=== PATIENT | female | born 1960 | race Caucasian/White ===

== ENCOUNTER 2023-04-13 09:48 | Outpatient (REF) | payer OTHER, SELFPAY ==
[2023-04-13 15:01] LABS: MANUAL DIFF FLAG NO
[2023-04-13 15:04] LABS: Basophils Absolute Auto 0.1 X10*3/uL (0.0-0.2); Basophils Percent Auto 1.5 % (0-2); Eosinophils Absolute Auto 0.3 X10*3/uL (0.0-0.4); Eosinophils Percent Auto 4.2 % (0-4); Hemoglobin 12.6 g/dl (12.0-16.0); Imm Gran Abs Auto 0.05 X10*3/uL (0.00-0.03); Imm Gran Pct Auto 0.7 % (0.0-0.4); Lymphocytes Absolute Auto 2.1 X10*3/uL (1.2-4.9); Lymphocytes Percent Auto 30.7 % (20-40); Mean Corpuscular HGB Conc 33.2 g/dl (31.0-35.0); Mean Corpuscular Hemoglobin 28.5 pg (27.0-33.0); Mean Platelet Volume 11.7 fL (9.4-12.3); Monocytes Absolute Auto 0.6 X10*3/uL (0.1-1.2); Monocytes Percent Auto 8.8 % (2-11); Neutrophils Absolute Auto 3.6 x10*3/uL (2.0-8.3); Neutrophils Percent Auto 54.1 % (45-73); Platelet Count 364 X10*3/uL (160-400); Red Blood Count 4.42 X10*6/uL (4.20-5.50); Red Cell Distribution Width 13.2 % (11.0-16.0); White Blood Count 6.7 X10*3/uL (4.8-10.8)
[2023-04-13 15:29] LABS: Alanine Aminotransferase 23 U/L (0-31); Albumin Level 4.2 g/dL (3.5-5.0); Alkaline Phosphatase 97 U/L (39-117); Anion Gap 14 (12-20); Aspartate Amino Transferase 21 U/L (5-31); Blood Urea Nitrogen 13 mg/dL (9-16); Calcium 9.6 mg/dL (8.4-10.2); Carbon Dioxide 25 mmol/L (22-29); Chloride 106 mmol/L (96-108); Cholesterol 235 mg/dL (<200); Estimated Glomerular Filt Rate > 60; Glucose Fasting 93 mg/dL (60-99); HDL Cholesterol 55 mg/dL (>40); LDL Cholesterol Calculated 154 mg/dL (<100); Potassium 4.8 mmol/L (3.3-5.1); Sodium 140 mmol/L (135-145); Total Protein 7.5 g/dL (6.5-8.0); Triglycerides 130 mg/dL (<150)
[2023-04-13 15:50] LABS: Vitamin D 25-OH Total 42.3 ng/mL (>30)
== END 2023-04-13 09:49 | disposition home or self-care (01) ==
LOC: HO.CHCLDS 09:48
PROVIDERS: Visit Provider Family Medicine
DX: I10 Essential (primary) hypertension (principal); E55.9 Vitamin D deficiency, unspecified
CPT/HCPCS: 36415; 80053; 80061; 82306; 85025

== ENCOUNTER 2023-08-05 09:26 | Outpatient (REF) | payer OTHER, SELFPAY ==
[2023-08-05 13:01] LABS: Cholesterol 143 mg/dL (<200); HDL Cholesterol 56 mg/dL (>40); LDL Cholesterol Calculated 71 mg/dL (<100); Triglycerides 82 mg/dL (<150)
== END 2023-08-05 09:27 | disposition home or self-care (01) ==
LOC: HO.CHCLDS 09:26
PROVIDERS: Visit Provider Family Medicine
DX: E78.5 Hyperlipidemia, unspecified (principal)
CPT/HCPCS: 36415; 80061

== ENCOUNTER 2023-10-17 16:22 | Outpatient (REF) | payer OTHER, SELFPAY ==
[2023-10-17 20:42] LABS: Influenza A PCR NEGATIVE (Negative); Influenza B PCR NEGATIVE (Negative); Resp Syncy Virus RNA Qual PCR NEGATIVE (Negative); SARS COV2 PCR INHOUSE NEGATIVE (Negative)
== END 2023-10-17 16:23 | disposition home or self-care (01) ==
LOC: HO.CHCLNP 16:22
PROVIDERS: Visit Provider Family Medicine
DX: J32.9 Chronic sinusitis, unspecified (principal)
CPT/HCPCS: 0241U

== ENCOUNTER 2024-04-17 15:05 | Outpatient (REF) | payer OTHER, SELFPAY ==
[2024-04-21 18:23] LABS: HPV mRNA E6/E7 Not Detected (Not Detected)
== END 2024-04-17 15:06 | disposition home or self-care (01) ==
LOC: HO.LNP 15:05
PROVIDERS: Visit Provider Family Medicine
DX: Z12.4 Encounter for screening for malignant neoplasm of cervix (principal)
CPT/HCPCS: 87624; 88175

== ENCOUNTER 2024-11-01 11:21 | Outpatient (REF) | payer MEDICARE, OTHER, SELFPAY ==
[2024-11-01 12:11] LABS: MANUAL DIFF FLAG NO
[2024-11-01 12:16] LABS: Basophils Absolute Auto 0.1 X10*3/uL (0.0-0.2); Basophils Percent Auto 0.9 % (0-2); Eosinophils Absolute Auto 0.3 X10*3/uL (0.0-0.4); Eosinophils Percent Auto 2.6 % (0-4); Hematocrit 36.1 % (37.0-47.0); Hemoglobin 12.4 g/dl (12.0-16.0); Imm Gran Abs Auto 0.09 X10*3/uL (0.00-0.03); Imm Gran Pct Auto 0.8 % (0.0-0.4); Lymphocytes Absolute Auto 2.1 X10*3/uL (1.2-4.9); Lymphocytes Percent Auto 19.2 % (20-40); Mean Corpuscular HGB Conc 34.3 g/dl (31.0-35.0); Mean Corpuscular Volume 84.3 fL (80.0-98.0); Mean Platelet Volume 10.9 fL (9.4-12.3); Monocytes Percent Auto 8.7 % (2-11); Neutrophils Absolute Auto 7.4 x10*3/uL (2.0-8.3); Neutrophils Percent Auto 67.8 % (45-73); Platelet Count 340 X10*3/uL (160-400); Red Blood Count 4.28 X10*6/uL (4.20-5.50); Red Cell Distribution Width 13.2 % (11.0-16.0)
[2024-11-01 12:22] LABS: Anion Gap 17 (12-20); Blood Urea Nitrogen 18 mg/dL (9-16); Calcium 9.8 mg/dL (8.4-10.2); Carbon Dioxide 23 mmol/L (22-29); Chloride 106 mmol/L (96-108); Estimated Glomerular Filt Rate > 60; Glucose Random 100 mg/dL (60-115); Potassium 4.3 mmol/L (3.3-5.1); Sodium 142 mmol/L (135-145)
--- OUTSIDE RECORDS SUMMARY | 2024-11-01 12:31 | XMS_ITS | Encounter Summary ---
Author Organization [employer] Address [address] [place] [address] [place] [address] Care Team Providers Care Manager Language Name Role Phone Anna Tineo MD Primary Care Provider [phone] Reason for Referral * Consultation (Routine) - Pending Review Specialty Diagnoses / Procedures Referred By Aziza armas Referred To Contact Pulmonary Disease Diagnoses Chest tightness Tea Curry MD [address] [place] [phone] Phone: tel: fax: Referral ID Status Reason Start Date Expiration Date Visits Requested Visits Authorized [id number] Pending Review Specialty Services Required 11/01/2024 11/01/2025 1 1 * PFT (Routine) - Authorized Specialty Diagnoses / Procedures Referred By Aziza armas Referred To Contact Diagnoses Chest tightness Procedures Pulmonary Function Test Tea Curry MD [address] [place] [phone] Phone: tel: fax: [address] Phone: tel: fax: Referral ID Status Reason Start Date Expiration Date V isits Requested Visits Authorized [id number] Authorized 11/01/2024 11/01/2025 1 1 Encounter Details Date Type Department Care Team (Late st Contact Info) Description 11/01/2024 10:30 AM EDT Office Visit [facility] [address] [place] [address] Tea Curry MD [address] [place] [address] Chest tightness (Primary Dx) Social History Tobacco Use Types Packs/Day Years Used Date Smoking Tobacco: Never Passive Smoke Exposure: Never Smokeless Tobacco: Never Alcohol Use Standard Drinks/Week Comments Never 0 (1 standard drink = 0.6 oz pur e alcohol) Depression Answer Date Recorded Patient Health Questionnaire-9 Score 4 03/14/2024 Patient Health Questionnaire-9 Score 4 03/14/2024 Last PHQ-9: Questionnaire Data Not on file 0 03/14/2024 Housing Stability Answer Date Recorded What is your housing situation today? I have luisa martinez 04/08/[address] you li ve. Do you have problems with any of the following? None of the above 04/08/2023 Food Insecurity Answer Date Recorded Within the past 12 months, y ou worried that your food would run out before you got money to buy more: Never True 04/08/2023 Within the past 12 months,th e food you bought just didn't last and you didn't have enough money to get more: Never True Transportation Answer Date Recorded In the past 12 months, has l ack of transportation kept you from medical appts, meetings, work or from getting things needed for daily living? No 04/08/2023 Utilities Answer Date Recorded In the past 12 months, has t he electric, gas, oil or water company threatened to shut off services in your home? No 04/08/2023 Depression Answer Date Recorded Patient Health Questionnaire-2 Score 1 03/14/2024 Comments No Sex and Gender Information Value Date Recorded Sex Assigned at Female 04/19/2022 10:39 AM EDT Legal Sex Female 10:39 AM EDT Gender Identity Female 04/19/2022 10:39 AM EDT Sexual Orientation Choose not to disclose 2021 10:39 AM EDT documented as of this encounter Last Filed Vital Signs Vital Sign Reading Time Taken Comments Blood Pressure 121/70 11/01/2024 10:30 AM EDT Pulse 76 11/01/2024 10:30 AM EDT Temperature 37.1 ??C (98.7 ??F) 11/01/2024 10:30 AM E DT Respiratory Rate 22 11/01/2024 10:30 AM EDT Oxygen Saturation 100% 11/01/2024 10:30 AM EDT Inhaled Oxygen Concentration - - Weight - - Height - - Body Mass Index - - documented in this encounter Plan of Treatment Upcoming Encounters Date Type Department Care Team (Late st Contact Info) Description 11/26/2024 9:15 AM EDT Office Visit [facility] MED & PEDS [address] [place] [address] Anna Tineo MD [address] [place] [address] Scheduled Orders Name Type Priority Associated Diagnoses Orde r Schedule Influenza A (ID NOW Rapid Molecular) Point of Care Testing Routine Chest tightness Ordered: 11/01/2024 Influenza B (ID NOW Rapid Molecular) Point of Care Testing Routine Chest tightness Ordered: 11/01/2024 POCT Rapid COVID Ag Point of Care Testing Routine Chest tightness Ordered: 11/01/2024 D Dimer High Sensitivity Lab Routine Chest tightness Expected: 11/01/2024, Expires: 11/01/2025 Pulmonary Function Test PFT Routine Chest tightness Expected: 11/01/2024, Expires: 05/04/2025 Alpha 1 Antitrypsin Lab Routine Chest tightness Expected: 11/01/2024 (Approximate), Expires: 11/01/2025 Scheduled Referrals Name Type Priority Associated Diagnoses Order Schedule Referral to Pulmonology Outpatient Referral Routine Chest tightness Expected: 11/01/2024 (Approximate), Expires: 11/01/2025 documented as of this encounter Procedures Procedure Name Priority Date/Time Associated Diagnosis Comments CBC WITH AUTO DIFFERENTIAL Routine 11/01/2024 11:24 AM EDT Chest tightness BASIC METABOLIC PANEL Routine 11/01/2024 11:24 AM EDT Chest tightness documented in this encounter Results * (ABNORMAL) Basic Metabolic Panel (11/01/2024 11:24 AM EDT) Pathologist [facility] Sodium 142 135 - 145 mmol/L [facility] Potassium 4.3 3.3 - 5.1 mmol/L [facility] Chloride 106 96 - 108 mmol/L [facility] Carbon Dioxide 23 22 - 29 mmol/L [facility] Anion Gap 17 12 - 20 [facility] Urea Nitrogen (BUN) 18(H) 9 - 16 mg/dL [facility] Creatinine, Serum 0.81 0.5 - 1.4 mg/dL [facility] Estimated Glomerular Filt Rate >60 [facility] Comment:Chronic Kidney Disea se: Estimated GFR < 60 mL/min/[id number] Kidney Disease: Estimated GFR < 15 mL/min/1.73m2 Glucose 100 60 - 115 mg/dL [facility] Calcium 9.8 8.4 - 10.2 mg/dL [facility] Blood Venous blood specimen / Unknown 11/01/2024 11:24 AM EDT 11/01/2024 12:05 PM EDT us Tea Curry MD LAB BLOOD ORDERABLES Final Result [facility] [address] [place] [phone] * (ABNORMAL) CBC auto differential (11/01/2024 11:24 AM EDT) Pathologist [facility] White Blood Count 11.0(H) 4.8 - 10.8 X10*3/uL [facility] Red Blood Count 4.28 4.20 - 5.50 X10*6/uL [facility] Hemoglobin 12.4 12.0 - 16.0 g/dl [facility] Hematocrit 36.1(L) 37.0 - 47.0 % [facility] Mean Corpuscular Volume 84.3 80.0 - 98.0 fL [facility] Mean Corpuscular Hemoglobin 29.0 27.0 - 33.0 pg [facility] Mean Corpuscular HGB Conc 34.3 31.0 - 35.0 g/dl [facility] Red Cell Distribution Width 13.2 11.0 - 16.0 % [facility] Platelet Count 340 160 - 400 X10*3/uL [facility] Mean Platelet Volume 10.9 9.4 - 12.3 fL [facility] Neutrophils Percent Auto 67.8 45 - 73 % [facility] Imm Gran Pct Auto 0.8(H) 0.0 - 0.4 % [facility] Lymphocytes Percent Auto 19.2(L) 20 - 40 % [facility] Monocytes Percent Auto 8.7 2 - 11 % [facility] Eosinophils Percent Auto 2.6 0 - 4 % [facility] Basophils Percent Auto 0.9 0 - 2 % [facility] NRBC Pct Auto 0.0 0.0 - 0.2 /100WBC [facility] Neutrophils Absolute Auto 7.4 2.0 - 8.3 x10*3/uL [facility] Imm Gran Abs Auto 0.09(H) 0.00 - 0.03 X10*3/uL [facility] Lymphocytes Absolute Auto 2.1 1.2 - 4.9 X10*3/uL [facility] Monocytes Absolute Auto 1.0 0.1 - 1.2 X10*3/uL [facility] Eosinophils Absolute Auto 0.3 0.0 - 0.4 X10*3/uL [facility] Basophils Absolute Auto 0.1 0.0 - 0.2 X10*3/uL [facility] NRBC Abs Auto 0.000 0.0 - 0.012 X10*3/uL [facility] Blood Venous blood specimen / Unknown 11/01/2024 11:24 AM EDT 11/01/2024 12:05 PM EDT us Tea Curry MD LAB BLOOD ORDERABLES Final Result [facility] [address] [place] [phone] documented in this encounter Visit Diagnoses Diagnosis Chest tightness- Primary Other chest pain documented in this encounter Additional Health Concerns Assessment Noted Time PHQ-9 Depression Total Score: 4 03/14/20 24 11:37 AM EDT documented as of this encounter Care Teams Manager Language Relationship Specialty Start Date End Date Anna Tineo MD [address] [place] [address] PCP - General Family Medicine 05/19/21 documented as of this encounter
--- OUTSIDE RECORDS SUMMARY | 2024-11-01 12:31 | XMS_ITS | Encounter Summary ---
Author Organization [employer] Address [address] [facility] [address] [place] [address] Care Team Providers Care Edge Baster Name Role Phone Anna Tineo MD Primary Care Provider [phone] Reason for Visit * Reason Comments Med Refill Encounter Details Date Type Department Care Team ([facility] Contact Info) Description 06/07/2023 Refill [facility] [address] [place] [address] Chelle James MD [address] [place] [address] Social History Tobacco Use Types Packs/Day Years Used Date Smoking Tobacco: Never Passive Smoke Exposure: Never Smokeless Tobacco: Never Alcohol Use Standard Drinks/Week Comments Never 0 (1 standard drink = 0.6 oz pur e alcohol) Housing Stability Answer Date Recorded What is [...] off services in your home? No 04/08/2023 Comments Unknown Sex and Gender Information Value Date Recorded Sex Assigned at Female 04/19/2022 10:39 AM EDT Legal Sex Female 10:39 AM EDT Gender Identity Female 04/19/2022 10:39 AM EDT Sexual Orientation Choose not to disclose 2021 10:39 AM EDT documented as of this encounter Plan of Treatment Upcoming Encounters Date Type Department Care Team (Late st Contact Info) Description 11/26/2024 9:15 AM EDT Office Visit [facility] MED & PEDS [address] [place] [address] Anna Tineo MD [address] [place] [address] documented as of this encounter Visit Diagnoses Not on filedocumented in this encounter Care Teams Edge Baster Relationship Specialty Start Date End Date Anna Tineo MD [address] [place] [phone] PCP - General Family Medicine 05/19/21 documented as of this encounter
--- OUTSIDE RECORDS SUMMARY | 2024-11-01 12:31 | XMS_ITS | Encounter Summary ---
Author Organization [employer] Address [address] [facility] [address] [place] [address] Care Team Providers Care Rehabilitation Consultant Name Role Phone Anna Tineo MD Primary Care Provider [phone] Encounter Details Date Type Department Care Team (Latest Contact Info) Description 11/01/2024 Travel Social History Tobacco Use Types Packs/Day Years [...] Description 11/26/2024 9:15 AM EDT Office Visit [facility] MED & PEDS [address] [place] [address] Anna Tineo MD [address] [place] [address] documented as of this encounter Visit Diagnoses Not on filedocumented in this encounter Additional Health Concerns Assessment Noted Time PHQ-9 Depression Total Score: 4 03/14/20 24 11:37 AM EDT documented as of this encounter Care Teams Rehabilitation Consultant Relationship Specialty Start Date End Date Anna Tineo MD [address] [place] [address] PCP - General Family Medicine 05/19/21 documented as of this encounter
--- OUTSIDE RECORDS SUMMARY | 2024-11-01 12:31 | XMS_ITS | Encounter Summary ---
Author Organization [employer] Address [address] [facility] [address] [place] [address] Care Team Providers Care Facer Operator Name Role Phone Anna Tineo MD Primary Care Provider [phone] Encounter Details Date Type Department Care Team ([facility] st Contact Info) Description 11/01/2024 Telephone [facility] [address] [place] [address] Anna Tineo MD [address] [place] [address] Social History Tobacco Use Types Packs/Day Years [...] AM EDT documented as of this encounter Miscellaneous Notes * Telephone Encounter - Pam Fowler RN - 11/01/2024 9:39 AM EDT Called pt. RE: Incoming pt. Portal message of not feeling well. Pt. States she is always out of breath. Pt. Was feeling better with the antibiotic at first but, now pt. Is still easily tired. Pt has been using her inhaler with relief but still has chest congestion and has head congestion. Phlegm isgreen colored. Pt. Concerned and wants to know what further measures need to be taken. Protocol Used: Breathing Difficulty (Adult) Protocol-Based Disposition: Go to Office or Video Visit Now- Pt. Has appt. Today at 1030am in [facility]. Video visit offer not recorded Positive Triage Questions: * Mild difficulty breathing (e.g., minimal/no SOB at rest, SOB with walking, pulse < 100) of new-onset or worse than normal * Patient wants to be seen * All higher-acuity triage questions were negative documented in this encounter Plan of Treatment Upcoming Encounters Date Type Department Care Team (Late st Contact Info) Description 11/26/2024 9:15 AM EDT Office Visit [facility] MED & PEDS [address] [place] [address] Anna Tineo MD [address] [place] [address] documented as of this encounter Visit Diagnoses Not on filedocumented in this encounter Additional Health Concerns Assessment Noted Time PHQ-9 Depression Total Score: 4 03/14/20 24 11:37 AM EDT documented as of this encounter Care Teams Facer Operator Relationship Specialty Start Date End Date Anna Tineo MD [address] [place] [address] PCP - General Family Medicine 05/19/21 documented as of this encounter
--- OUTSIDE RECORDS SUMMARY | 2024-11-01 12:31 | XMS_ITS | Clinical Summary ---
Author Organization [employer] Address [address] [place] [address] Care Team Providers Care Igniter Capper Name Role Phone Anna Tineo MD Primary Care Provider [phone] Allergies Active Allergy Reactions Criticality Noted Date Comments Bee Venom Anaphylaxis High 07/08/2017 Sulfa Antibiotics Rash Low 10/01/2021 Medications cholecalciferol (Vitamin D-3) 50 MCG (1999 UT) tablet Take 1 tablet by mouth 1 (one) time each day. Active ibuprofen 600 MG tablet TAKE 1 TABLET BY MOUTH FOUR TIMES A DAY WITH FOOD 2 Active triamcinolone (Kenalog) 0.1 % cream APPLY A THIN LAYER TO AFFECTED AREA TWICE A DAY FOR 7 DAYS 3 Active clonazePAM (KlonoPIN) 0.5 MG tablet Take 1 tablet (0.5 mg) by mouth in the morning for 7 days. TAKE 1 TABLET ONCE A DAY NEEDED 7 tablet 3 Active cyanocobalamin (Vitamin B-12) 500 MCG tablet Take 500 mcg by mouth in the morning. Active fluticasone (Flonase) 50 MCG/ACT nasal spray Administer 1 spray into each nostril Once per day. 16 g 1 4 11/17/19 25 Active pantoprazole (ProtoNix) 40 MG EC tablet Take 1 Tab by mouth daily for 180 days. 0 Active bisoprolol-hydr oCHLOROthiazide (Ziac) 5-6.25 MG tablet TAKE 1 TABLET BY MOUTH EVERY DAY 90 tablet 1 4 Active citalopram (CeleXA) 40 MG tablet TAKE 1 TABLET BY MOUTH EVERY DAY 90 tablet 1 4 Active atorvastatin (Lipitor) 20 MG tablet TAKE 1 TABLET BY MOUTH EVERY DAY IN THE MORNING 90 tablet 1 5 Active albuterol 108 (90 Base) MCG/ACT inhaler Inhale 2 puffs every 4 (four) hours if needed for wheezing. 18 g 5 Active amoxicillin-cla vulanate (Augmentin) 875-125 MG tabletIndicatio ns:Acute non-recurrent maxillary sinusitis Take 1 tablet by mouth 2 times daily for 10 days. 20 tablet 5 11/02/19 25 Active predniSONE (Deltasone) 10 MG tabletIndicatio ns:Chest tightness 3 Tabs x 3 days, 2 tabs x 3 days, 2 tabs x 3 days, one tab x 3 days. 20 tablet 5 Active doxycycline (Vibramycin) 100 MG capsuleIndicati ons:Acute non-recurrent maxillary sinusitis Take 1 capsule (100 mg) by mouth 2 times daily for 10 days. Take with at least 8 ounces (large glass) of water, do not lie down for 30 minutes after 20 capsule 5 11/12/19 25 Active predniSONE (Deltasone) 20 MG tabletIndicatio ns:Acute non-recurrent maxillary sinusitis Take 2 tablets (40 mg) by mouth Once per day for 5 days. 10 tablet 5 10/28/19 25 Active Problems Problem Noted Date Diagnosed Date Diastolic dysfunction 07/04/2024 COVID-19 05/14/2024 Assessment & Plan (05/14/2024 10:12 AM EST): Cont with shortness of breath, DONNELLY and loss sense of smell. Reports no further fevers, was not rx'ed Paxlovid. Requiring albuterol up to 2 times a day. Normal lung. Cervical cancer screening 04/17/2024 Assessment & Plan (04/17/2024 9:45 AM EDT): 63 y.o. here for cervical cancer screening. Will continue monitoring following ASCCP guidelines. Other fatigue 03/14/2024 Assessment & Plan (03/14/2024 12:02 PM EDT): Ordering lab work for further evaluation. MARTÍNEZ (dyspnea on exertion) 03/14/2024 Assessment & Plan (03/14/2024 12:01 PM EDT): Ordering BNP and TTE for further evaluation of Sx. Rhinosinusitis 10/17/2023 Assessment & Plan (10/17/2023 3:54 PM EDT): Negative for Flu and Covid. Prescribing Sudafed, Diflucan, and Augmentin. Discussed side effects of medication. Relevant Medication Amoxicillin-Clavulanate (Augmentin) 875 -125 MG Tablet Fluconazole (Diflucan 150 MG Tablet Pseudoephedrine ER ( Sudafed Sinus Congestion 12 hr) 120 MG Tablet 12 hr Tablet Hyperlipidemia 08/05/2023 Assessment & Plan (03/14/2024 12:02 PM EDT): Continue on medications, follow up in 6 months. Assessment & Plan (08/05/2023 9:16 AM EST): Patient's HLD is controlled at this time. F/U in 6 months. Labs: Lipid panel Hypertension 04/08/2023 Assessment & Plan (03/14/2024 12:01 PM EDT): Controlled, continue on medications. Assessment & Plan (04/08/2023 12:01 PM EDT): Controlled: will keep treating with medications. -Advised patient to keep monitoring at home. -Labs: Lipid Panel, Albumin, CBC, Met. Panel. Follow up in 4 months Depressive disorder 06/26/2022 Anxiety 06/26/2022 Vitamin D deficiency 06/10/2022 Assessment & Plan (04/08/2023 12:00 PM EDT): -Will send Labs: Vit.D 1,25. Herpes zoster without complication 06/10/2022 Assessment & Plan (06/18/2022 4:38 PM EST): Improvement sp treatment sent by Dr. Gerber. Has appt with opthal coming up. No pain. RTC if recurs or as needed Assessment & Plan (06/10/2022 2:48 PM EST): Video visit could not be done, she refers this lesions are similar to what she had 4 years ago, refers location is on the right side of her face, are near her right eye socket, denied blurry/loss of vision, but 2 days ago her face was swollen. Will prescribe valacyclovir and will refer for eye exam Abnormal mammogram of right breast 03/08/2019 Overview (04/17/2024): S/p US guided biopsy 02/2019 Atypical endocervical cells on Pap smear 018 Overview (04/17/2024): HPV negative 01/2018 TIA (transient ischemic attack) 08/02/2017 Overview (04/17/2024): Age 42 Osteopenia 07/08/2017 Diverticulosis 07/08/2017 Obesity (BMI 30-39.9) 07/04/2017 GERD (gastroesophageal reflux disease) 8 Encounters Date Type Department Care Team Description 11/01/2024 10:30 AM EDT Office Visit [facility] [address] [place] [address] Tea Curry MD Chest tightness (Primary Dx) 11/01/2024 Orders Only [facility] [address] [place] [address] Tea Curry MD Acute non-recurrent maxillary sinusitis (Primary Dx) 11/01/2024 Travel 11/01/2024 Telephone [facility] [address] [place] [address] Anna Tineo MD 10/25/2024 Telephone [facility] [address] [place] [address] Tea Curry MD Results 10/22/2024 2:20 PM EDT Office Visit [facility] [address] [place] [address] Tea Curry MD Acute non-recurrent maxillary sinusitis (Primary Dx); Chest tightness 10/22/2024 Travel 10/22/2024 Telephone [facility] [address], [place] [phone] Latoya Roldan RN 08/30/2024 Refill [facility] [address], [place] [phone] Anna Tineo MD 08/28/2024 Refill [facility] [address], [place] [phone] Anna Tineo MD from Last 3 Months Immunizations Immunization Administration Dates Next Due TD (adult), 2 Lf tetanus tox oid, preservative free, adsorbed 05/30/2016 Zoster, Recombinant 06/29/2018 Family History Medical History Relation Name Comments Heart disease Mother Hyperlipidemia Mother Hypertension Mother Relation Name Status Comments Mother Social History Tobacco Use Types Packs/Day Years Used Date Smoking Tobacco: Never Passive Smoke Exposure: Never Smokeless Tobacco: Never Tobacco Cessation:Counseling Given: Not Answered Alcohol Use Standard Drinks/Week Comments Never 0 [...] not to disclose 2021 10:39 AM EDT Last Filed Vital Signs Vital Sign Reading Time Taken Comments Blood Pressure 121/70 11/01/2024 10:30 AM EDT Pulse 76 11/01/2024 10:30 AM EDT Temperature 37.1 ??C (98.7 ??F) 11/01/2024 10:30 AM E DT Respiratory Rate 22 11/01/2024 10:30 AM EDT Oxygen Saturation 100% 11/01/2024 10:30 AM EDT Inhaled Oxygen Concentration - - Weight 82.2 kg (181 lb 3.2 oz) 05/14/2024 9:54 A M EST Height 157.5 cm (5' 2 ) 05/14/2024 9:54 AM EST Body Mass Index 33.14 05/14/2024 9:54 AM EST Plan of Treatment Upcoming Encounters Date Type Department Care Team (Late st Contact Info) Description 11/26/2024 9:15 AM EDT Office Visit [facility] [address] [place] [address] Anna Tineo MD [address] [place] [address] Health Maintenance Due Date Last Done Comments CT Colonography 1959 Colonoscopy 1959 Colorectal Cancer Screening 1959 FIT DNA/Cologuard 1959 FIT 1959 FOBT 1959 Sigmoidoscopy 1959 Hepatitis C Screening 10/06/1977 Pneumococcal Vaccine: 50+ Years (1 of 1 - PCV) 10/06/2009 DTaP/Tdap/Td Vaccines (1 - Tdap) 05/31/2016 05/30/2016 Zoster Vaccines (2 of 2) 08/24/2018 06/29/2018 RSV Patients and Patients Aged 60 years or older (1 - Risk 60-74 years 1-dose series) 2019 COVID-19 Vaccine (3 - 2023-2 5 season) 2024 09/27/2020, 09/06/2020 SDOH Screening 07/29/2024 07/29/2023 Mammogram 08/08/2024 08/08/2023, 08/08/2023 Influenza Vaccine (#1) 2024 Postp oned from 02/19/2024 (Patient Refused) Depression Screening 03/14/2025 03/14/2024, 03/14/2024 Alcohol/Substance Use Screening 04/17/2025 04/17/2024 Tobacco Screening 05/14/2025 05/14/2024 Lipid Panel 08/05/2028 08/05/2023, 04/13/2023, 05/07/2021 Cervical Cancer Screening 04/17/2029 HPV/Cotest 04/17/2029 04/17/2024 Pap Smear 04/17/2029 04/17/2024 HIB Vaccines Aged Out No longer eligi ble based on patient's age to complete this topic HPV Vaccines Aged Out No longer eligi ble based on patient's age to complete this topic Hepatitis A Vaccines Aged Out No long er eligible based on patient's age to complete this topic Hepatitis B Vaccines Aged Out No long er eligible based on patient's age to complete this topic IPV Vaccines Aged Out No longer eligi ble based on patient's age to complete this topic Meningococcal B Vaccine Aged Out No l onger eligible based on patient's age to complete this topic Meningococcal Vaccine Aged Out No jeimy jase eligible based on patient's age to complete this topic RSV under 20 months Aged Out No longe r eligible based on patient's age to complete this topic Rotavirus Vaccines Aged Out No longer eligible based on patient's age to complete this topic Procedures Procedure Name Priority Date/Time Associated Diagnosis Comments BASIC METABOLIC PANEL Routine 11/01/2024 11:24 AM EDT Chest tightness CBC WITH AUTO DIFFERENTIAL Routine 11/01/2024 11:24 AM EDT Chest tightness XR CHEST 2 VIEWS Routine 10/23/2024 Acute non-recurrent maxillary sinusitis Chest tightness POCT INFLUENZA B Routine 10/22/2024 2:55 PM EDT Chest tightness POCT INFLUENZA A Routine 10/22/2024 2:50 PM EDT Chest tightness POCT RAPID COVID ANTIGEN Routine 10/22/2024 2:50 PM EDT Acute non-recurrent maxillary sinusitis Chest tightness THINPREP IMAGING PAP AND HPV MRNA E6/E7 Routine 04/17/2024 9:50 AM EDT HM MAMMOGRAPHY Routine 08/08/2023 9:23 AM EST LIPID PANEL, STANDARD Routine 08/05/2023 9:29 AM EST Hyperlipidemia, unspecified hyperlipidemia type from Last 3 Months or Most Recently Relevant to Health Maintenance Results * (ABNORMAL) CBC auto differential (11/01/2024 11:24 AM EDT) White Blood Count 11.0(H) 4.8 - 10.8 X10*3/uL [facility] Red Blood Count 4.28 4.20 - 5.50 X10*6/uL [facility] Hemoglobin 12.4 12.0 - 16.0 g/dl [facility] Hematocrit 36.1(L) 37.0 - 47.0 % [facility] Mean Corpuscular Volume 84.3 80.0 - 98.0 fL [facility] Mean Corpuscular Hemoglobin 29.0 27.0 - 33.0 pg [facility] Mean Corpuscular HGB Conc 34.3 31.0 - 35.0 g/dl [facility] Red Cell Distribution Width 13.2 11.0 - 16.0 % [facility] Platelet Count 340 160 - 400 X10*3/uL [facility] Mean Platelet Volume 10.9 9.4 - 12.3 fL [facility] Neutrophils Percent Auto 67.8 45 - 73 % [facility] Imm Gran Pct Auto 0.8(H) 0.0 - 0.4 % [facility] Lymphocytes Percent Auto 19.2(L) 20 - 40 % [facility] Monocytes Percent Auto 8.7 2 - 11 % [facility] Eosinophils Percent Auto 2.6 0 - 4 % [facility] Basophils Percent Auto 0.9 0 - 2 % [facility] NRBC Pct Auto 0.0 0.0 - 0.2 /100WBC [facility] Neutrophils Absolute Auto 7.4 2.0 - 8.3 x10*3/uL [facility] Imm Gran Abs Auto 0.09(H) 0.00 - 0.03 X10*3/uL [facility] Lymphocytes Absolute Auto 2.1 1.2 - 4.9 X10*3/uL [facility] Monocytes Absolute Auto 1.0 0.1 - 1.2 X10*3/uL [facility] Eosinophils Absolute Auto 0.3 0.0 - 0.4 X10*3/uL [facility] Basophils Absolute Auto 0.1 0.0 - 0.2 X10*3/uL [facility] NRBC Abs Auto 0.000 0.0 - 0.012 X10*3/uL [facility] Blood Venous blood specimen / Unknown 11/01/2024 11:24 AM EDT 11/01/2024 12:05 PM EDT us Tea Curry MD LAB BLOOD ORDERABLES Final Result [facility] [address] [place] [phone] [phone] * (ABNORMAL) Basic Metabolic Panel (11/01/2024 11:24 AM EDT) Sodium 142 135 - 145 mmol/L [facility] Potassium 4.3 3.3 - 5.1 mmol/L [facility] Chloride 106 96 - 108 mmol/L [facility] Carbon Dioxide 23 22 - 29 mmol/L [facility] Anion Gap 17 12 - 20 [facility] Urea Nitrogen (BUN) 18(H) 9 - 16 mg/dL [facility] Creatinine, Serum 0.81 0.5 - 1.4 mg/dL [facility] Estimated Glomerular Filt Rate >60 [facility] Comment:Chronic Kidney Disea se: Estimated GFR < 60 mL/min/1.36f5Jfhnex Kidney Disease: Estimated GFR < 15 mL/min/1.73m2 Glucose 100 60 - 115 mg/dL [facility] Calcium 9.8 8.4 - 10.2 mg/dL [facility] Blood Venous blood specimen / Unknown 11/01/2024 11:24 AM EDT 11/01/2024 12:05 PM EDT us Tea Curry MD LAB BLOOD ORDERABLES Final Result [facility] [address] [place] [address] [phone] * XR Chest 2 Views (10/23/2024) Anatomical Region Laterality Modality Chest Radiographic Elizabeth ging us Tea Curry MD IMG XR PROCEDURES Final Res ult * POCT Rapid Influenza B OSOM (10/22/2024 2:55 PM EDT) Pathologist [facility] Rapid Influenza B Ag Negative Negative, Indeterminate QC Media Lot # [id number] Lot# Expiration Date [id number] Swab 10/22/2024 2:55 PM EDT us Tea Curry MD POINT OF CARE TEST ENTER/ED IT ORDERABLES Final Result * POCT Rapid Covid-19 BinaxNOW (10/22/2024 2:50 PM EDT) Pathologist [facility] Rapid COVID Ag Negative QC Media Lot # [id number] Lot# Expiration Date ,026 Swab 10/22/2024 2:50 PM EDT Tea Curry MD POINT OF CARE TEST ENTER/ED IT ORDERABLES Final Result * POCT Rapid Influenza A OSOM (10/22/2024 2:50 PM EDT) Rapid Influenza A Ag Negative Negative, Indeterminate QC Media Lot # [id number] Lot# Expiration Date 312,025 Swab Nasopharyngeal structure / Unknown 10/22/2024 2:50 PM EDT Tea Curry MD POINT OF CARE TEST ENTER/ED IT ORDERABLES Final Result * ThinPrep Imaging Pap and HPV mRNA E6/E7 (04/17/2024 9:50 AM EDT) Pathologist [facility] HPV nRNA E6/E7 Not Detected Not Detected [facility] Comment:Methodology: Transcr iption-Mediated AmplificationThis assay detects E6/E7 viral messenger RNA (mRNA) from 14high-risk HPV types (16,18,31,33,35,39,45,51,52,56,58,59,66,68).Cervical sources are required for HPV testing.If a vaginal source from a patient who has had atotal hysterectomy with removal of cervix wassubmitted, please contact the testing laboratoryfor alternative testing options.For additional information, please refer [email or web address]/faq/[email or web address](This link if provided for information/educational purposes only.)THIS TEST WAS PERFORMED AT:[employer] [place] [phone] HAYS MD SOURCE: SEE NOTE [facility] Comment:Cervix Report Status: TNP [facility] Clinical Information: SEE NOTE [facility] Comment:None given LMP: SEE NOTE [facility] Comment:NONE GIVEN Prev. PAP: SEE NOTE [facility] Comment:NONE GIVEN Prev. BX: SEE NOTE [facility] Comment:NONE GIVEN Statement Of Adequacy: SEE NOTE [facility] Comment:SATISFA[employer]ORY FOR SHALONDA MENCHACA General Categorization: [facility] Interpretation/Result: SEE NOTE [facility] Comment:Cytology Results: Ne gative for intraepitheliallesion or malignancy.Atrophic pattern; predominantly parabasal cells Cytology Comment SEE NOTE [facility] Comment:This Pap test has be en evaluated with computerassisted technology. Survey Methodologist: SEE NOTE [facility] Comment:MRC, CT(ASCP) CT scr eening location: [place] [address] Review Survey Methodologist: [facility] Pathologist [facility] PAP Infection [facility] See Note SEE NOTE [facility] Comment:EXPLANATORY NOTE:The Pap is a screening test for cervical cancer. It isnot a diagnostic test and is subject to false negativeand false positive results. It is most reliable when asatisfactory sample, regularly obtained, is submittedwith relevant clinical findings and history, and whenthe Pap result is evaluated along with historic andcurrent clinical information. 04/17/2024 9:50 AM EDT 04/17/2024 3:06 PM EDT Narrative [facility] - 04/23/2024 12:27 PM EST SEE SCANNED RESULTS IN EMRCERVIX us Anna Tineo MD LAB PATHOLOGY ORDERABLES Nidhi l Result [facility] [address] [place] [address] [phone] * Hm Mammography (08/08/2023 9:23 AM EST) Anatomical Region Laterality Modality Other Historical Provider HEALTH MAINTENANCE Final Result * Lipid Panel, Standard (08/05/2023 9:29 AM EST) Triglycerides 82 <150 mg/dL [facility] Comment:Desirable Triglyceri de: less than 150 mg/dLBorderline High Triglyceride 150-199 mg/dLHigh Triglyceride: 200-499 mg/dLVery High Triglyceride: greater than or equal to 5OO mg/dL Cholesterol 143 <200 mg/dL [facility] Comment:Desirable Cholestero l: less than 200 mg/dLBorderline High Cholesterol: 200-239 mg/dLHigh Cholesterol: greater than 239 mg/dL LDL Cholesterol Calculated 71 <100 mg/dL [facility] Comment:Desirable LDL: less than 100 mg/dLNear Optimal/Above Optimal LDL: 110- 129 mg/dLBorderline High LDL: 130-159 mg/dLHigh LDL: 160-189 mg/dLVery High LDL: greater than or equal to 190 mg/dL HDL Cholesterol 56 >40 mg/dL [facility] Comment:Desirable HDL: great er than 40 mg/dL Note: This HDL assay may give artificially low results in patients with liver disease. Blood Venous blood specimen / Unknown 08/05/2023 9:29 AM EST 08/05/2023 12:30 PM EST Anna Tineo MD LAB BLOOD ORDERABLES Final Re sult [facility] [address] [place] [address] [phone] from Last 3 Months or Most Recently Relevant to Health Maintenance [place] [address] [place] [address] HMO Care Teams Igniter Capper Relationship Specialty Start Date End Date Anna Tineo MD [address] [place] [phone] PCP - General Family Medicine 05/19/21
--- OUTSIDE RECORDS SUMMARY | 2024-11-01 12:31 | XMS_ITS | Clinical Summary ---
Author Organization [facility] Address [address] [place] [address] Phone Care Team Providers Care Handle Attacher Name Role Phone Anna Tineo MD Primary Care Provider [phone] Allergies Active Allergy Reactions Criticality Noted Date Comments Bee Venom Protein (Honey Bee) Anaphylaxis High 07/08 Sulfa (Sulfonamide Antibiotics) Other 06/20 Medications albuterol HFA (PROAIR HFA ; PROVENTIL HFA ; VENTOLIN HFA) 90 mcg/actuation inhaler Inhale 2 puffs by mouth every 4 (four) hours if needed for wheezing or shortness of breath. Use with spacer to ensure complete administration . 1 each 4 Active citalopram (CeleXA) 40 mg tablet Take 1 tablet (40 mg total) by mouth 1 (one) time each day. 1 Active bisoprolol-hydr oCHLOROthiazide (ZIAC) 5-6.25 mg per tablet Take 1 tablet by mouth 1 (one) time each day. 1 Active pantoprazole (PROTONIX) 40 mg EC tablet Take 1 Tab by mouth daily for 180 days. 0 Active cholecalciferol (VITAMIN D-3) 50 mcg (2,000 unit) tablet Take 1 tablet (2,000 Units total) by mouth 1 (one) time each day. 9 Active Active Problems Problem Noted Date Diagnosed Date COVID-19 virus detected 05/30/2020 Abnormal mammogram of right breast 03/08/2019 Overview (05/12/2024): S/p US guided biopsy 02/2019 Atypical endocervical cells on Pap smear 018 Overview (05/12/2024): HPV negative 01/2018 TIA (transient ischemic attack) 08/02/2017 Overview (05/12/2024): Age 42 Diverticulosis 07/08/2017 Osteopenia 07/08/2017 Anxiety and depression 07/04/2017 GERD (gastroesophageal reflux disease) 8 Hypercholesteremia 07/04/2017 Hypertension 07/04/2017 Obesity (BMI 30-39.9) 07/04/2017 Encounters Date Type Department Care Team Description 10/23/2024 12:02 PM EDT - 10/23/2024 11:59 PM EDT Hospital Encounter [facility] Xray [address] [place] [address] Acute maxillary sinusitis, unspecified; Other chest pain Discharge Disposition: Home or Self Care from Last 3 Months Surgical History Surgery Date Site/Laterality Comments TUBAL LIGATION PROCEDURE: HISTORICAL TUBAL LIGATION OTHER SURGICAL HISTORY PROCEDURE: ---- OTHER ----; COMMENT: breast enlargement OTHER SURGICAL HISTORY 2013 PROCEDURE: ---- OTHER ----; COMMENT: left breast repair COLONOSCOPY 2014 PROCEDURE: HISTORICAL COLONOSCOPY Medical History Medical History Date Comments Hypertension 07/04/2017 DX:Hypertension Hypercholesteremia 07/04/2017 DX:Hyperchole steremia GERD (gastroesophageal reflux disease) 07/04/2017 DX:GERD (gastroesophageal reflux disease) Impaired fasting glucose 07/04/2017 DX:Impa ired fasting glucose Obesity (BMI 30-39.9) 07/04/2017 DX:Obesity (BMI 30-39.9) Osteopenia 07/08/2017 DX:Osteopenia Diverticulosis 07/08/2017 DX:Diverticulosi s Anxiety and depression 07/04/2017 DX:Anxiet y and depression TIA (transient ischemic attack) 08/02/2017 DX:TIA (transient ischemic attack); COMMENT: Age 42 Atypical endocervical cells on Pap smear 8 DX:Atypical endocervical cells on Pap smear; COMMENT: HPV negative 01/2018 Abnormal mammogram of right breast 03/08/2019 DX:Abnormal mammogram of right breast; COMMENT: S/p US guided biopsy 02/2019 Family History Medical History Relation Name Comments Heart failure Father HTN Diabetes Maternal Grandfather Diabetes Mother HTN, TIA Asthma Sister 1 Asthma Sister 2 Asthma Son Relation Name Status Comments Father Maternal Grandfather Mother Sister 1 Sister 2 Son Social History Tobacco Use Types Packs/Day Years Used Date Smoking Tobacco: Never Smokeless Tobacco: Never Alcohol Use Standard Drinks/Week Comments Yes 0 (1 standard drink = 0.6 oz pur e alcohol) Comments Unknown Sex and Gender Information Value Date Recorded Sex Assigned at Not on file Legal Sex Female 7:26 AM EST Gender Identity Not on file Sexual Orientation Not on file Obstetrics History Last Filed Vital Signs Vital Sign Reading Time Taken Comments Blood Pressure 118/64 07/03/2024 3:25 PM EST Pulse 92 05/04/2024 5:00 PM EST Temperature 37.3 ??C (99.1 ??F) 05/04/2024 5:00 PM ES T Respiratory Rate 20 05/04/2024 5:00 PM EST Oxygen Saturation 100% 05/04/2024 5:00 PM EST Inhaled Oxygen Concentration - - Weight 83.9 kg (185 lb) 07/03/2024 3:25 PM EST Height 157.5 cm (5' 2 ) 07/03/2024 3:25 PM EST Body Mass Index 33.84 07/03/2024 3:25 PM EST Plan of Treatment Health Maintenance Due Date Last Done Comments Breast Cancer Screening 1960 Pneumococcal Vaccine: 50+ Years (1 of 1 - PCV) 10/06/2009 Zoster Vaccines (2 of 2) 08/24/2018 06/29/2018 Medicare Annual Wellness Visit 05/23/2022 Osteoporosis Screening (Bone Density Screening) 05/23/2022 Social Influencers of Health Screening 05/23/2022 Cervical Cancer Screening: P ap Smear 03/14/2023 03/14/2020 COVID-19 Vaccine (3 - 2023-2 5 season) 2024 09/27/2020, 09/06/2020 Falls Risk Assessment 10/06/2024 Influenza Vaccine (Season Ended) 2025 Depression Screening 03/14/2025 03/14/2024 Hypertension/CHF/CAD Annual BMP Blood Test 05/04/2025 05/04/2024, 11/20/2020 Colorectal Cancer Screening: Colonoscopy 06/06/2025 06/06/2015 DTaP,Tdap,and Td Vaccines (2 - Td or Tdap) 05/30/2026 05/30/2016 Cholesterol Screening (Lipid Panel) 08/05/2028 08/05/2023, 11/20/2020 RSV Immunization Adult Patients (1 - 1-dose 75+ series) 10/06/2034 Hepatitis C Screening Completed 12/01/2017 HIB Vaccines Aged Out No longer eligi [...] on patient's age to complete this topic MMR Vaccines Aged Out No longer eligi ble based on patient's age to complete this topic Meningococcal ACWY Vaccine Aged Out N o longer eligible based on patient's age to complete this topic Meningococcal B Vaccine Aged Out No l onger eligible based on patient's age to complete this topic Pneumococcal Vaccine: Pediatrics (0 to 5 Years) and At-Risk Patients (6 to 64 Years) Aged Out No longer eligible b ased on patient's age to complete this topic RSV Immunization Patients Under 20 months Aged Out No longer eligible b ased on patient's age to complete this topic Varicella Vaccines Aged Out No longer eligible based on patient's age to complete this topic Procedures Procedure Name Priority Date/Time Associated Diagnosis Comments XR CHEST 2 VIEWS Routine 10/23/2024 12:3 1 PM EDT Acute maxillary sinusitis, unspecified Other chest pain BASIC METABOLIC PANEL STAT 05/04/2024 12:22 PM EST LIPID PANEL Routine 11/20/2020 HM PAP SMEAR Routine 03/14/2020 HEPATITIS C SCREENING Routine 12/01/2017 COLONOSCOPY Routine 06/06/2015 from Last 3 Months or Most Recently Relevant to Health Maintenance Results * XR Chest 2 Views (10/23/2024 12:31 PM EDT) Anatomical Region Laterality Modality Body Radiographic Elizabeth ging 10/23/2024 12:3 7 PM EDT Impressions 10/23/2024 12:37 PM EDT FINDINGS/IMPRESSION: Hyperinflation. ??No congestive heart failure or pneumonia. ??No acute osseous abnormality. -------- FINAL REPORT -------- Dictated By: Neo Bishop Dictated Date: 10/23/2024 12:37 ET Assigned Physician: Neo Bishop Reviewed and Electronically Signed By: Neo Bishop Signed Date: 10/23/2024 12:37 ET Workstation ID: [id number] Transcribed By: Self Edit Transcribed Date: 10/23/2024 12:37 ET Narrative 10/23/2024 12:37 PM EDT XR CHEST 2 VIEWS INDICATION: CHEST TIGHTNESS TECHNIQUE: XR CHEST 2 VIEWS COMPARISON: No priors available. Procedure Note Neo Bishop MD - 10/23/2024 XR CHEST 2 VIEWS INDICATION: CHEST TIGHTNESS TECHNIQUE: XR CHEST 2 VIEWS COMPARISON: No priors available. IMPRESSION: FINDINGS/IMPRESSION: Hyperinflation. No congestive heart failure orpneumonia. No acute osseous abnormality. -------- FINAL REPORT -------- Dictated By: Neo Bishop Dictated Date: 10/23/2024 12:37 ET Assigned Physician: Neo Bishop Reviewed and Electronically Signed By: Neo Bishop Signed Date: 10/23/2024 12:37 ET Workstation ID: [id number] Transcribed By: Self Edit Transcribed Date: 10/23/2024 12:37 ET us Tea Curry MD IMG XR PROCEDURES Final R esult * (ABNORMAL) Basic metabolic panel (05/04/2024 12:22 PM EST) Sodium 138 133 - 145 mmol/L LAB CHEMISTRY METHOD 05/04/2024 12:47 PM [facility] Potassium 3.6 3.5 - 5.5 mmol/L LAB CHEMISTRY METHOD 05/04/2024 12:47 PM [facility] Chloride 105 96 - 110 mmol/L LAB CHEMISTRY METHOD 05/04/2024 12:47 PM [facility] CO2 23 21 - 32 mmol/L LAB CHEMISTRY METHOD 05/04/2024 12:47 PM [facility] Anion Gap 10 3 - 11 LAB CHEMISTRY METHOD 05/04/2024 12:47 PM [facility] Glucose 101(H) 70 - 100 mg/dL LAB CHEMISTRY METHOD 05/04/2024 12:47 PM [facility] BUN 15 5 - 25 mg/dL LAB CHEMISTRY METHOD 05/04/2024 12:47 PM [facility] Creatinine 1.10 0.50 - 1.10 mg/dL LAB CHEMISTRY METHOD 05/04/2024 12:47 PM [facility] eGFR 56(L) >=60 mL/min/1. 73m2 LAB CHEMISTRY METHOD 05/04/2024 12:47 PM [facility] Comment:Calculation based on the??Chronic Kidney Disease Epidemiology Collaboration (CKD-EPI) equation refit??without adjustment for race. BUN/Creatinine Ratio 13.6 LAB CHEMISTRY METHOD 05/04/2024 12:47 PM [facility] Calcium 9.5 8.5 - 10.5 mg/dL LAB CHEMISTRY METHOD 05/04/2024 12:47 PM [facility] Blood Venous blood specimen / Unknown Venipuncture / Unknown 05/04/2024 12:22 PM EST 05/04/2024 12:26 PM EST us Milena Dawson DO LAB BLOOD ORDERABLES Nidhi l Result [facility] [address] [place] [address], * Lipid panel (11/20/2020) [facility] LDL/HDL Ratio 2 0 - 4 Triglycerides 111 0 - 150 mg/dL Cholesterol 145 0 - 200 mg/dL HDL 63 >=40 mg/dL LDL Cholesterol 60 0 - 100 mg/dL Blood Venous blood specimen / Unknown [facility] Provider LAB BLOOD ORDERABLES Nidhi l Result * Pap Smear (03/14/2020) [facility] Pap smear abstracted, no interpretation [facility] Provider HEALTH MAINTENANCE Final Result * Hepatitis C Screening (12/01/2017) [facility] Hepatitis C Screening abstracted [facility] Provider HEALTH MAINTENANCE Final Result * Colonoscopy (06/06/2015) [facility] Colonoscopy abstracted, no interpretation Anatomical Region Laterality Modality Other [facility] Provider HEALTH MAINTENANCE Final Result from Last 3 Months or Most Recently Relevant to Health Maintenance Insurance [employer] - [place] MEDICARE ADVANTAGE Care Teams Handle Attacher Relationship Specialty Start Date End Date Anna Tineo MD [address] [place] [address] PCP - General 02/24/22
--- OUTSIDE RECORDS SUMMARY | 2024-11-01 12:31 | XMS_ITS | Encounter Summary ---
Author Organization [facility] [employer] [facility] Address [address] [place] [address] Care Team Providers Care Broadcast Journalist Name Role Phone Anna Tineo MD Primary Care Provider [phone] Encounter Details Date Type Department Care Team (Late st Contact Info) Description 04/17/2024 Orders Only [facility] [address] [place] [address] Provider, MD Arnulfo Social History Tobacco Use Types Packs/Day Years [...] is your housing situation today? I have luisaronnie martinez 04/08/[address] you [...] Description 11/26/2024 9:15 AM EDT Office Visit [facility] [address] [place] [address] Anna Tineo MD [address] [place] [address] documented as of this encounter Procedures Procedure Name Priority Date/Time Associated Diagnosis Comments THINPREP IMAGING PAP AND HPV MRNA E6/E7 Routine 04/17/2024 9:50 AM EDT HM MAMMOGRAPHY Routine 08/08/2023 9:23 AM EST documented in this encounter Results * ThinPrep Imaging Pap and HPV mRNA E6/E7 (04/17/2024 9:50 AM EDT) HPV nRNA E6/E7 Not Detected Not Detected [facility] Comment:Methodology: Transcr iption-Mediated AmplificationThis assay detects E6/E7 viral messenger RNA (mRNA) from 14high-risk HPV types (16,18,31,33,35,39,45,51,52,56,58,59,66,68).Cervical sources are required for HPV testing.If a vaginal source from a patient who has had atotal hysterectomy with removal of cervix wassubmitted, please contact the testing laboratoryfor alternative testing options.For additional information, please refer [email or web address].[employer]/faq/IDI362g2(This link if provided for information/educational purposes only.)THIS TEST WAS PERFORMED AT:[facility] [place] [phone] HAYS MD SOURCE: SEE NOTE [facility] Comment:Cervix Report Status: [facility] Clinical Information: SEE NOTE [facility] Comment:None given LMP: SEE NOTE [facility] Comment:NONE GIVEN Prev. PAP: SEE NOTE [facility] Comment:NONE GIVEN Prev. BX: SEE NOTE [facility] Comment:NONE GIVEN Statement Of Adequacy: SEE NOTE [facility] Comment:SATISFACTORY FOR SHALONDA LUATION General Categorization: [facility] Interpretation/Result: SEE NOTE [facility] Comment:Cytology Results: Ne gative for intraepitheliallesion or malignancy.Atrophic pattern; predominantly parabasal cells Cytology Comment SEE NOTE [facility] Comment:This Pap test has be en evaluated with computerassisted technology. Design Engineer Agricultural Equipment: SEE NOTE [facility] Comment:MRC, CT(ASCP) CT scr eening location: [address] [address] Review Design Engineer Agricultural Equipment: [facility] Pathologist [facility] PAP Infection [facility] See Note SEE NOTE [facility] Comment:EXPLANATORY NOTE:The Pap is a screening test for cervical cancer. It isnot a diagnostic test and is subject to false negativeand false positive results. It is most reliable when asatisfactory sample, regularly obtained, is submittedwith relevant clinical findings and history, and whenthe Pap result is evaluated along with historic andcurrent clinical information. 04/17/2024 9:50 AM EDT 04/17/2024 3:06 PM EDT Narrative [facility] - 04/23/2024 12:27 PM EST SEE SCANNED RESULTS IN EMRCERVIX us Anna Tineo MD LAB PATHOLOGY ORDERABLES Nidhi mora Result [facility] [address] [place] [phone] * Hm Mammography (08/08/2023 9:23 AM EST) Anatomical Region Laterality Modality Other us Historical Provider HEALTH MAINTENANCE Final Result documented in this encounter Visit Diagnoses Not on filedocumented in this encounter Additional Health Concerns Assessment Noted Time PHQ-9 Depression Total Score: 4 03/14/20 24 11:37 AM EDT documented as of this encounter Care Teams Broadcast Journalist Relationship Specialty Start Date End Date Anna Tineo MD [address] [place] [address] PCP - General Family Medicine 05/19/21 documented as of this encounter
--- OUTSIDE RECORDS SUMMARY | 2024-11-01 12:31 | XMS_ITS | Encounter Summary ---
Author Organization [facility] Address [address] [place] [address] Care Team Providers Care Drilling Engineering Manager Name Role Phone Anna Tineo MD Primary Care Provider [phone] Encounter Details Date Type Department Care Team ([facility] st Contact Info) Description 10/22/2024 2:20 PM EDT Office Visit [facility] [address] [place], [place] [phone] Tea Curry MD [address] [place] [address] Acute non-recurrent maxillary sinusitis (Primary Dx); Chest tightness Social History Tobacco Use Types Packs/Day Years [...] Sign Reading Time Taken Comments Blood Pressure 97/56 10/22/2024 2:25 PM EDT Pulse 73 10/22/2024 2:25 PM EDT Temperature 37.3 ??C (99.2 ??F) 10/22/2024 2:25 PM ED T Respiratory Rate 19 10/22/2024 2:25 PM EDT Oxygen Saturation 95% 10/22/2024 2:25 PM EDT Inhaled Oxygen Concentration - - Weight - - Height - - Body Mass Index - - documented in this encounter Progress Notes * Tea Curry MD - 10/22/2024 2:20 PM EDT SUBJECTIVE Ivonne Beasley is a 64 y.o. female who presents for No chief complaint on file.. HPI 6 days history of nasal congestion facial pain, chills after recent trip on a [place] to [place]. Patient admits that now she feels chest tightness and has been using her albuterol with alleviationof her symptoms. Patient Active Problem List Diagnosis Vitamin D deficiency Herpes zoster without complication Hypertension Depressive disorder Anxiety Hyperlipidemia Rhinosinusitis Other fatigue MARTÍNEZ (dyspnea on exertion) Cervical cancer screening TIA (transient ischemic attack) Osteopenia Obesity (BMI 30-39.9) GERD (gastroesophageal reflux disease) Diverticulosis Atypical endocervical cells on Pap smear Abnormal mammogram of right breast COVID-19 Diastolic dysfunction Allergies Allergen Reactions Bee Venom Anaphylaxis Sulfa Antibiotics Rash Current Outpatient Medications on File Prior to Visit Medication Sig Dispense Refill albuterol 108 (90 Base) MCG/ACT inhaler Inhale 2 puffs every 4 (four) hours if needed for wheezing.18 g 0 atorvastatin (Lipitor) 20 MG tablet TAKE 1 TABLET BY MOUTH EVERY DAY IN THE MORNING 90 tablet 1 bisoprolol-hydroCHLOROthiazide (Ziac) 5-6.25 MG tablet TAKE 1 TABLET BY MOUTH EVERY DAY 90 tablet 1 cholecalciferol (Vitamin D-3) 50 MCG (2000 UT) tablet Take 1 tablet by mouth 1 (one) time each day. citalopram (CeleXA) 40 MG tablet TAKE 1 TABLET BY MOUTH EVERY DAY 90 tablet 1 clonazePAM (KlonoPIN) 0.5 MG tablet Take 1 tablet (0.5 mg) by mouth in the morning for 7 days. TAKE1 TABLET ONCE A DAY NEEDED 7 tablet 0 cyanocobalamin (Vitamin B-12) 500 MCG tablet Take 500 mcg by mouth in the morning. fluticasone (Flonase) 50 MCG/ACT nasal spray Administer 1 spray into each nostril Once per day. 16 g 1 ibuprofen 600 MG tablet TAKE 1 TABLET BY MOUTH FOUR TIMES A DAY WITH FOOD pantoprazole (ProtoNix) 40 MG EC tablet Take 1 Tab by mouth daily for 180 days. triamcinolone (Kenalog) 0.1 % cream APPLY A THIN LAYER TO AFFECTED AREA TWICE A DAY FOR 7 DAYS No current facility-administered medications on file prior to visit. Review of Systems Constitutional: Negative for appetite change, chills and diaphoresis. Respiratory: Positive for chest tightness and shortness of breath. Negative for cough and choking. Cardiovascular: Negative for palpitations and leg swelling. Gastrointestinal: Negative for abdominal pain and anal bleeding. OBJECTIVE Vitals: 10/22/24 1425 BP: 97/56 BP Location: Left arm Patient Position: Sitting BP Cuff Size: Adult long Pulse: 73 Resp: 19 Temp: 99.2 ??F (37.3 ??C) TempSrc: Oral SpO2: 95% Physical Exam Constitutional: General: She is not in acute distress. Appearance: Normal appearance. She is not ill-appearing, toxic-appearing or diaphoretic. HENT: Nose: Right Turbinates: Enlarged and swollen. Left Turbinates: Enlarged and swollen. Right Sinus: Maxillary sinus tenderness present. No frontal sinus tenderness. Left Sinus: Maxillary sinus tenderness present. No frontal sinus tenderness. Cardiovascular: Rate and Rhythm: Normal rate. Pulmonary: Effort: No respiratory distress. Breath sounds: Normal breath sounds. No stridor. Neurological: Mental Status: She is alert. Assessment/Plan Assessment/Plan Diagnoses and all orders for this visit: Acute non-recurrent maxillary sinusitis - POCT Rapid Covid-19 BinaxNOW - XR Chest 2 Views; Future - amoxicillin-clavulanate (Augmentin) 875-125 MG tablet; Take 1 tablet by mouth 2 times daily for 10 days. - predniSONE (Deltasone) 20 MG tablet; Take 2 tablets (40 mg) by mouth Once per day for 5 days. Patient will be contacted with the results of the x-ray. She will also need to follow-up with her PCP to be evaluated to consider a pulmonary function test. Chest tightness - POCT Rapid Covid-19 BinaxNOW - POCT Rapid Influenza A OSOM - POCT Rapid Influenza B OSOM - XR Chest 2 Views; Future documented in this encounter Plan of Treatment Upcoming Encounters Date Type Department Care Team (Late st Contact Info) Description 11/26/2024 9:15 AM EDT Office Visit [facility] [address] [place] [address] Anna Tineo MD [address] [place] [address] documented as of this encounter Procedures Procedure Name Priority Date/Time Associated Diagnosis Comments XR CHEST 2 VIEWS Routine 10/23/2024 Acute non-recurrent maxillary sinusitis Chest tightness POCT INFLUENZA B Routine 10/22/2024 2:55 PM EDT Chest tightness POCT RAPID COVID ANTIGEN Routine 10/22/2024 2:50 PM EDT Acute non-recurrent maxillary sinusitis Chest tightness POCT INFLUENZA A Routine 10/22/2024 2:50 PM EDT Chest tightness documented in this encounter Results * XR Chest 2 Views (10/23/2024) Anatomical Region Laterality Modality Chest Radiographic Elizabeth ging Tea Curry MD IMG XR PROCEDURES Final Res ult * POCT Rapid Influenza B OSOM (10/22/2024 2:55 PM EDT) [facility] Signature Rapid Influenza B Ag Negative Negative, Indeterminate QC Media Lot # [id number] Lot# Expiration Date Swab 10/22/2024 2:55 PM EDT Tea Curry MD POINT OF CARE TEST ENTER/ED IT ORDERABLES Final Result * POCT Rapid Influenza A OSOM (10/22/2024 2:50 PM EDT) [facility] Rapid Influenza A Ag Negative Negative, Indeterminate QC Media Lot # [id number] Lot# Expiration Date Swab Nasopharyngeal structure / Unknown 10/22/2024 2:50 PM EDT Tea Curry MD POINT OF CARE TEST ENTER/ED IT ORDERABLES Final Result * POCT Rapid Covid-19 BinaxNOW (10/22/2024 2:50 PM EDT) [facility] Rapid COVID Ag Negative QC Media Lot # [id number] Lot# Expiration Date ,026 Swab 10/22/2024 2:50 PM EDT Tea Curry MD POINT OF CARE TEST ENTER/ED IT ORDERABLES Final Result documented in this encounter Visit Diagnoses Diagnosis Acute non-recurrent maxillary sinusitis- Primary Chest tightness Other chest pain documented in this encounter Additional Health Concerns Assessment Noted Time PHQ-9 Depression Total Score: 4 03/14/20 24 11:37 AM EDT documented as of this encounter Care Teams Drilling Engineering Manager Relationship Specialty Start Date End Date Anna Tineo MD [address] [place] [phone] PCP - General Family Medicine 05/19/21 documented as of this encounter
--- OUTSIDE RECORDS SUMMARY | 2024-11-01 12:31 | XMS_ITS | Data Portability ---
Author Organization [facility]ORET[facility], [address] Address [address] [place] [address] Care Team Providers Care Sound Engineer Name Role Phone RICKEY REJULIO Him Specialist [phone] FIDELIA LANG Him Specialist [phone] Assessment No assessment recorded. Plan of Treatment Reminders Order Date Submit Date Provider Last Modified By Organization Details Last Modified Time Details Appointments None recorded. Lab None recorded. Referral None recorded. Procedures None recorded. Surgeries None recorded. Imaging None recorded. Medication Orders triamcinolo ne acetonide 0.1 % topical cream [address] [facility] #[id number], [address] [place], [address], 14:55:09 Patient TargetsNo targets recorded. Patient Instructions Encounter Date Encounter Id Patient Instructions Last Modified By Organization Details Last Modified Time 06/26/2022 [id number] hives: care instructions [email or web address] Not available 06/26/2022 14:55:07 Please find minerva gonzales the plan of care that will assist in your recovery: There is no indication of infection, so antibiotics are not indicated at this time. -I highly encourage you to purchase an zgbl-ogy-auxnfyx emollient moisturizer (the one you showed be - aveeno for eczema - is perfect). Emollients are an essential component in treating atopic dermatitis. They will improve skin moisture and reduce itching. -Because of the severity of your condition, emollients alone will not be sufficient at this time. Therefore, topical steroid have also been prescribed. Triamcinolone Acetonide 0.1% topical ointment steroid has been prescribed and sent electronically to your pharmacy. Apply to the affected area three times per day for 7 days. Use as directed. Skin thinning, or striae, may occur if used incorrectly or for longer than 7 days. -If related to seasonal allergies, you can also take uaub-hfy-rqnebpa antihistamines such as loratadine (Claritin) or certrizine (Zyrtec) per package directions. -Wash clothes in mild detergent, with no bleach or fabric softener. -Wear soft clothing next to the skin such as light cotton. Wool clothing can be irritating. -Maintain mild temperatures, particularly at night, as heat and sweating can lead to irritation and itching. When possible, avoid activity that causes excessive sweating. -Use a cool mist humidifier in both winter and summer. This will help to prevent excess drying. -Avoid specific foods that provoke acute allergic reactions. In your case, seafood is one of these. Others may be peanuts, eggs, milk, soy and chocolate. -When showering, use lukewarm water rather than hot; then pat dry with a clean towel and immediately apply emollient moisturizer while the skin is still damp. This will help to keep moisture in the skin. -If your symptoms worsen, including increasing redness and swelling, drainage, discharge, bleeding, joint or muscle pain, or fever, return to Urgent Care for further evaluation. -If you experience severe pain, lethargy, dizziness, SOB, or chest pain, call 911 or go to the nearest emergency room. -Should you want to read more about atopic dermatitis, I have attached additional educational material and links. OR Thank you for choosing Urgent Care today! Below are your discharge instructions, please reach out to us right away for any changes or questions/concerns . Feel free to send an image of the rash in 2-3 days via the [facility] for assessment. ? Wash with lukewarm water and fragrance-free cleanser ? Apply moisturizer immediately after bathing or washing ? Use petroleum jelly overnight. I am also prescribing a steroid ointment (triamcinolone) which can help with the dermatitis. Please do not use for longer than 1 week at a time as steroids can thin the skin over extended use/time. ? Avoid allergen or irritating substance. If you do not improve by day 5 or any other changes or concerning, please reach out to us right away. If you develop any worsening rash, high fever, weakness, throat closing, swelling of your lips, tongue, chest pain, wheezing, shortness of breath, dizziness, new concerning or worsening symptoms, please call 911 or go to the nearest ED. Take care and I hope you feel better! [email or web address] Not available 06/26/2022 14:54:39 Reason for Referral None Reported. Problems Name Problem SNOMED Code Status Onset Date Resolution Date Notes Provider Name and Address Organization Details Recorded Time Anxiety 59526229 Active 2022 Elle Azael null, [place] - [facility] 3 14:19:12 Depressive disorder 54294716 Active 2022 Elle [place] null, [place] - [facility] 14:19:18 Hypertensive disorder 98291456 Active 2022 Elle [place] null, [place] - [facility] 3 14:19:29 Problem Notes None recorded. Medical Equipment None Reported. Allergies Allergen ID Allergen Name Allergen Category Reaction Reaction Severity Criticality Documentation Date Start Date Code Code System Note Provider Name and Address Organization Details Recorded Time 33547 Substance with sulfonami de structure and antibacte rial mechanism of action (substanc e) medicatio n fever Not available high 06/26/2022 83946 8003 SNOMED Elle Azael null, PA - [facility] 14:18:25 Medications Name Sig Start Date Stop Date Status Note LastModified by Organization Details LastModified Time amoxicillin 500 mg capsule TAKE 1 CAPSULE BY MOUTH EVERY 8 HOURS 06/26 completed Not Available Not Available Not Available citalopram 40 mg tablet TAKE 1 TABLET BY MOUTH EVERY DAY active Not Available Not Available No t Available valacyclovi r 1 gram tablet TAKE 1 TABLET BY MOUTH IN THE MORNING AT NOON AND AT BEDTIME FOR 7 DAYS 06/26 completed Not Available Not Available Not Available clonazepam 0.5 mg tablet TAKE 1 TABLET ONCE A DAY NEEDED active Not Available Not Available No t Available bisoprolol 5 mg-hydrochl orothiazide 6.25 mg tablet TAKE 1 TABLET BY MOUTH EVERY DAY active Not Available Not Available No t Available triamcinolo ne acetonide 0.1 % topical cream APPLY A THIN LAYER TO AFFECTED AREA TWICE A DAY FOR 7 DAYS active Not Available Not Available No t Available amoxicillin 500 mg tablet TAKE 1 TABLET BY MOUTH EVERY 8 HOURS 06/26 completed Not Available Not Available Not Available cephalexin 500 mg capsule TAKE 1 CAPSULE BY MOUTH EVERY 12 HOURS 06/26 completed Not Available Not Available Not Available ibuprofen 600 mg tablet TAKE 1 TABLET BY MOUTH FOUR TIMES A DAY WITH FOOD active Not Available Not Available No t Available Vitals Date Recorded Body height Body mass index (BMI) Body weight Oxygen saturation Oxygen saturation in Arterial blood by Pulse oximetry Heart rate Respiratory rate Body temperature Systolic blood pressure Diastolic blood pressure Provider Name and Address Organization Details Last Updated DateTime 3 157.48 cm 34.2 kg/m2 46902.7 7 g 95 % 95 % 69 /min 20 /min 98.2 [degF] 124 mm[Hg] 82 mm[Hg] Elle Addison [facility] 14:21:22 Social History Question Answer Notes LastModified by [facility] Details LastModified Time Tobacco Smoking Status Never Smoker Elle casanova [facility] 06/26/2022 14:19:39 Have You Had Direct Contact, Or Contact During Intimacy, With Monkeypox Rash, Scabs, Or Body Fluids From A Person With Monkeypox? No Information not available 06/26/2022 Have You Recently Traveled Abroad? No Information not available 06/26/2022 Sex: Unknown Functional Status Question Answer Note LastModified by [facility] Details LastModified Time Do you use any illicit or recreational drugs? No Information not available 06/26/2022 Do you or have you ever used any other forms of tobacco or nicotine? No Information not available 06/26/2022 What is your level of alcohol consumption? None Information not available 06/26/2022 Mental Status None recorded. Family History Relationship Description Onset Age of this Age Resolved Age Notes LastModified by Organization Details LastModified Time Father No current problems or disability Not available 06/26 14:19:31 Mother No current problems or disability Not available 06/26 14:19:31 Medical History No medical history recorded. Gynecological HistoryNo gynecological history recorded. Obstetrics History GPAL:G 0 P 0 0 0 0 Immunizations Vaccine Type Date Status Note Provider Nam e and Address Organization Details Recorded Time COVID-19, mRNA, LNP-S, PF, 30 mcg/0.3 mL dose 09/27/2020 completed Elle [place] null, PA - [facility] 06/26/2022 14:18:13 COVID-19, mRNA, LNP-S, PF, 30 mcg/0.3 mL dose 09/06/2020 completed Elle Azael null, PA - [facility] 06/26/2022 14:18:13 Past Encounters Encounter ID Performer Location Encounter Start Date Encounter Closed Date Diagnosis/Indication Diagnosis SNOMED-CT Code Diagnosis ICD10 Code Diagnosis Note [id number] [address] [place] [address] 06/10/2016 08:32:16 06/10/2016 10:23:57 [id number] [address] [place] [address] 06/01/2016 08:46:44 06/01/2016 10:26:53 [id number] [place] [address] 02/12/2021 15:57:37 02/12/2021 18:34:49 [id number] [address] [place] [address] 05/30/2016 17:31:53 05/30/2016 19:27:27 [id number] LORETO ROSE [address] [place] [address] 06/26/2022 14:02:12 06/26/2022 14:59:38 Generalized rash 982185682 R21 Health Concerns Section Related Observation LastModified by Organization Detai ls LastModified Time None Recorded Concern Status LastModified by Organization Details LastModified Time None Recorded Advance Directives Directive None Recorded Payers Insurance Date Sequence Insurance Name Policy Number Policy Spence Covered Member ID Spence Member ID Guarantor Name 06/26/2022 1 [facility] (MEDICAID HMO) [id number] Ivonne Beasley [id number] Ivonne Beasley 05/10/2022 GENERIC WORKER'S COMP (MOVED TO HOLD) Ivonne Beasley 05/19/2022 [employer] [facility] Med Generic (Move To Hold) [[id number]] Ivonne Beasley Notes Date Note Type Note Provider Name and Address Organization Details Recorded Time 06/26/2022 text/html Ivonne is a 61 y o F with PMH anxiety, depression and HTN here for redness, itching, dryness and puffiness of her face onset 2 days. Has hx of eczema in the past but never on the face. Denies tongue or throat swelling/closing sensation, SOB, wheezing, hx of anaphylactic shock. She denies new facewash, body wash, lotions/soaps, detergents. No new meds. No new foods. Picked up some hydrocortisone 0.5% cream which she notes helped her today.She also has aveeno eczema gel she picked up today. Advised to avoid makeup or scented lotions/creams while she is still having symptoms. BIRD Whelan, LORETO [address] [place] [address] [place], [address], [place] - [facility] 06/26/2022 14:58:09 OBGyn Episode No OBEpisode recorded.
[2024-11-01 12:32] LABS: D Dimer High Sensitivity 486 NG/ML
== END 2024-11-01 11:22 | disposition home or self-care (01) ==
LOC: HO.CHCLDS 11:21
PROVIDERS: Visit Provider Internal Medicine
DX: R07.89 Other chest pain (principal)
CPT/HCPCS: 36415; 80048; 85025; 85379

== ENCOUNTER 2024-11-06 16:23 | Outpatient (REF) | payer MEDICARE, OTHER, SELFPAY ==
--- OUTSIDE RECORDS SUMMARY | 2024-11-06 16:46 | XMS_ITS | Encounter Summary ---
Author Organization [employer] Address [address] [facility] [address] [place] [address] Care Team Providers Care Credit And Collection Manager Name Role Phone Anna Tineo MD Primary Care Provider [phone] Encounter Details Date Type Department Care Team ([facility] st Contact Info) Description 11/01/2024 Telephone [facility] MED & PEDS [address] [place], [place] [phone] Anna Tineo MD [address] [place] [address] Social History Tobacco Use Types Packs/Day Years [...] encounter Miscellaneous Notes * Telephone Encounter - Nel Villarreal RN - 11/01/2024 1:05 PM EDT Critical Lab called in . D-dimer 486. Notified provider who instructed patient to go to ER. TC to patient, explained why she needed to go to the ER, patient stated she is on her way to [facility]. documented in this encounter Plan of Treatment Upcoming Encounters Date Type Department Care Team (Late st Contact Info) Description 11/19/2024 3:30 PM EDT Office Visit [facility] MED & PEDS [address] [place] [address] Anna Tineo MD [address] [place] [address] 11/26/2024 9:15 AM EDT Office Visit [facility] MED & PEDS [address] [place] [address] Anna Tieno MD [address] [place] [address] documented as of this encounter Visit Diagnoses Not on filedocumented in this encounter Additional Health Concerns Assessment Noted Time PHQ-9 Depression Total Score: 4 03/14/20 24 11:37 AM EDT documented as of this encounter Care Teams Credit And Collection Manager Relationship Specialty Start Date End Date Anna Tineo MD [address] [place] [address] PCP - General Family Medicine 05/19/21 documented as of this encounter
--- OUTSIDE RECORDS SUMMARY | 2024-11-06 16:46 | XMS_ITS | Encounter Summary ---
Author Organization [employer] Address [address] [facility] [address] [place] [address] Care Team Providers Care Rn Practitioner Name Role Phone Anna Tineo MD Primary Care Provider [phone] Encounter Details Date Type Department Care Team ([facility] st Contact Info) Description 11/01/2024 Telephone [facility] MEDICINE [address] [place] [address] Anna Tinoe MD [address] [place] [address] Social History Tobacco Use Types Packs/Day Years [...] Description 11/19/2024 3:30 PM EDT Office Visit [facility] MED & PEDS [address] [place] [address] Anna Tineo MD [address] [place] [address] 11/26/2024 9:15 AM EDT Office Visit [facility] MED & PEDS [address] [place] [address] Anna Tineo MD [address] [place] [address] documented as of this encounter Visit Diagnoses Not on filedocumented in this encounter Additional Health Concerns Assessment Noted Time PHQ-9 Depression Total Score: 4 03/14/20 24 11:37 AM EDT documented as of this encounter Care Teams Rn Practitioner Relationship Specialty Start Date End Date Anna Tineo MD [address] [place] [address] PCP - General Family Medicine 05/19/21 documented as of this encounter
--- OUTSIDE RECORDS SUMMARY | 2024-11-06 16:46 | XMS_ITS | Encounter Summary ---
Author Organization [employer] Address [address] [facility] [address] [place] [address] Care Team Providers Care Carpet Winder Name Role Phone Anna Tineo MD Primary Care Provider [phone] Encounter Details Date Type Department Care Team (Latest Contact Info) Description 11/06/2024 Travel Social History Tobacco Use Types Packs/Day [...] Description 11/19/2024 3:30 PM EDT Office Visit [facility] MED & PEDS [address] [place] [address] Anna Tineo MD [address] [place] [address] 11/26/2024 9:15 AM EDT Office Visit [facility] MED & PEDS [address] [place] [address] Anna Tineo MD [address] [place] [address] documented as of this encounter Visit Diagnoses Not on filedocumented in this encounter Additional Health Concerns Assessment Noted Time PHQ-9 Depression Total Score: 4 03/14/20 24 11:37 AM EDT documented as of this encounter Care Teams Carpet Winder Relationship Specialty Start Date End Date Anna Tineo MD [address] [place] [address] PCP - General Family Medicine 05/19/21 documented as of this encounter
--- OUTSIDE RECORDS SUMMARY | 2024-11-06 16:46 | XMS_ITS | Encounter Summary ---
Author Organization [facility] Address [address] [place] [address] 7 [place] [address] Care Team Providers Care High Worker Name Role Phone Anna Tineo MD Primary Care Provider [phone] Reason for Referral * Consultation (Routine) - Authorized Specialty Diagnoses / Procedures Referred By Aziza armas Referred To Contact Pulmonary Disease Diagnoses Chest tightness Tea Curry MD [address] [place] [address] Phone: tel: fax: [facility] Pulmonology [address] [place], [place] Phone: tel: fax: Referral ID Status Reason Start Date Expiration Date Visits Requested Visits Authorized [id number] Authorized Specialty Services Required 11/01/2024 11/01/2025 1 1 * PFT (Routine) - Authorized Specialty Diagnoses / Procedures Referred By Contmatt t Referred To Contact Diagnoses Chest tightness Procedures Pulmonary Function Test Tea Curry MD [address] [place] [address] Phone: tel: fax: [facility] [address] [place], [place] Phone: tel: fax: Referral ID Status Reason Start Date Expiration Date V isits Requested Visits Authorized [id number] Authorized 11/01/2024 11/01/2025 1 1 Encounter Details Date Type Department Care Team (Late st Contact Info) Description 11/01/2024 10:30 AM EDT Office Visit [facility] [address] [facility] [place] [address] Tea Curry MD [address] [place] [address] Chest tightness (Primary Dx) Social History Tobacco [...] Progress Notes * Tea Curry MD - 11/01/2024 10:30 AM EDT SUBJECTIVE Ivonne Beasley is a 64 y.o. female who presents for No chief complaint on file.. HPI History of nasal congestion and chest tightness. Treated initially with Augmentin and a prednisone burst with partial improvement. The symptoms recurred after completion of the prednisone course. Had a chest x-ray showing hyperinflation of the lungs. Problem List[1] Allergies[2] Medications Ordered Prior to Encounter[3] Review of Systems Constitutional: Negative for activity change, appetite change and chills. Eyes: Negative for photophobia, pain and redness. Respiratory: Positive for chest tightness and shortness of breath. Negative for cough and choking. Cardiovascular: Negative for leg swelling. Gastrointestinal: Negative for abdominal pain, anal bleeding and blood in stool. OBJECTIVE Vitals: 11/01/24 1030 BP: 121/70 BP Location: Left arm Patient Position: Sitting BP Cuff Size: Adult Pulse: 76 Resp: 22 Temp: 98.7 ??F (37.1 ??C) TempSrc: Oral SpO2: 100% Physical Exam Constitutional: General: She is not in acute distress. Appearance: Normal appearance. She is not ill-appearing, toxic-appearing or diaphoretic. Cardiovascular: Rate and Rhythm: Normal rate. Pulmonary: Effort: No respiratory distress. Breath sounds: Normal breath sounds. No stridor. No wheezing or rhonchi. Neurological: General: No focal deficit present. Mental Status: She is alert. Psychiatric: Mood and Affect: Mood normal. Assessment/Plan Assessment/Plan Diagnoses and all orders for this visit: Chest tightness - Influenza A (ID NOW Rapid Molecular) - Influenza B (ID NOW Rapid Molecular) - POCT Rapid COVID Ag - CBC auto differential; Future - Basic Metabolic Panel; Future - D Dimer High Sensitivity; Future - predniSONE (Deltasone) 10 MG tablet; 3 Tabs x 3 days, 2 tabs x 3 days, 2 tabs x 3 days, one tab x3 days. - Pulmonary Function Test; Future - Alpha 1 Antitrypsin; Future - Referral to Pulmonology; Future Patient will be contacted with results. [1] Patient Active Problem List Diagnosis Vitamin D deficiency Herpes zoster without complication Hypertension Depressive disorder Anxiety Hyperlipidemia Rhinosinusitis Other fatigue MARTÍNEZ (dyspnea on exertion) Cervical cancer screening TIA (transient ischemic attack) Osteopenia Obesity (BMI 30-39.9) GERD (gastroesophageal reflux disease) Diverticulosis Atypical endocervical cells on Pap smear Abnormal mammogram of right breast COVID-19 Diastolic dysfunction [2] Allergies Allergen Reactions Bee Venom Anaphylaxis Sulfa Antibiotics Rash [3] Current Outpatient Medications on File Prior to Visit Medication Sig Dispense Refill albuterol 108 (90 Base) MCG/ACT inhaler Inhale 2 puffs every 4 (four) hours if needed for wheezing.18 g 0 amoxicillin-clavulanate (Augmentin) 875-125 MG tablet Take 1 tablet by mouth 2 times daily for 10 days. 20 tablet 0 atorvastatin (Lipitor) 20 MG tablet TAKE [...] Tab by mouth daily for 180 days. [] predniSONE (Deltasone) 20 MG tablet Take 2 tablets (40 mg) by mouth Once per day for 5 days. 10 tablet 0 triamcinolone (Kenalog) 0.1 % cream APPLY A THIN LAYER TO AFFECTED AREA TWICE A DAY FOR 7 DAYS No current facility-administered medications on file prior to visit. documented in this encounter Plan of Treatment Upcoming Encounters Date Type Department Care Team (Late st Contact Info) Description 11/19/2024 3:30 PM EDT Office Visit [facility] MED [facility] PEDS [address] [place] [address] Anna Tineo MD [address] [place] [address] 11/26/2024 9:15 AM EDT Office Visit [facility] [address] [place] [address] Anan Tineo MD [address] [place] [address] Scheduled Orders Name Type Priority Associated Diagnoses Orde r Schedule Influenza A (ID NOW Rapid Molecular) Point of Care Testing Routine Chest tightness Ordered: 11/01/2024 Influenza B (ID NOW Rapid Molecular) Point of Care Testing Routine Chest tightness Ordered: 11/01/2024 POCT Rapid COVID Ag Point of Care Testing Routine Chest tightness Ordered: 11/01/2024 Pulmonary Function Test PFT Routine Chest tightness Expected: 11/01/2024, Expires: 05/04/2025 Alpha 1 Antitrypsin Lab Routine Chest tightness Expected: 11/01/2024 (Approximate), Expires: 11/01/2025 Scheduled Referrals Name Type Priority Associated Diagnoses Order Schedule Referral to Pulmonology Outpatient Referral Routine Chest tightness Expected: 11/01/2024 (Approximate), Expires: 11/01/2025 documented as of this encounter Procedures Procedure Name Priority Date/Time Associated Diagnosis Comments D DIMER HIGH SENSITIVITY Routine 11/01/2024 11:24 AM EDT Chest tightness CBC WITH AUTO DIFFERENTIAL Routine 11/01/2024 11:24 AM EDT Chest tightness BASIC METABOLIC PANEL Routine 11/01/2024 11:24 AM EDT Chest tightness documented in this encounter Results * D Dimer High Sensitivity (11/01/2024 11:24 AM EDT) Pathologist [facility] D Dimer High Sensitivity 486 NG/ML [facility] Comment:Results of D DIMER c alled to FANNIE Delgado on 11/01/24at 1230 by CATHY.D-DIMER HS REFERENCE RANGENote: Our assay reports D-Dimer Units (D- DU).The cut-off value for venous thromboembolic (VTE) disease is230 ng/mL. This value has a very high negative predictivevalue when the patient has a low to moderate clinicalprobability of VTE.The upper limit of normal is 243 ng/mL. Blood 11/01/2024 11:2 4 AM EDT 11/01/2024 12:05 PM EDT us Tea Curry MD LAB BLOOD ORDERABLES Final Result [facility] [address] [place] [address] [phone] * (ABNORMAL) Basic Metabolic Panel (11/01/2024 11:24 AM EDT) Pathologist [facility] [place] Sodium 142 135 - 145 mmol/L [facility] Potassium 4.3 3.3 - 5.1 mmol/L [facility] Chloride 106 96 - 108 mmol/L [facility] Carbon Dioxide 23 22 - 29 mmol/L [facility] Anion Gap 17 12 - 20 [facility] Urea Nitrogen (BUN) 18(H) 9 - 16 mg/dL [facility] Creatinine, Serum 0.81 0.5 - 1.4 mg/dL [facility] Estimated Glomerular Filt Rate >60 [facility] Comment:Chronic Kidney Disea se: Estimated GFR < 60 mL/min/[id number] Kidney Disease: Estimated GFR < 15 mL/min/1.73m2 Glucose 100 60 - 115 mg/dL [facility] Calcium 9.8 8.4 - 10.2 mg/dL [facility] Blood Venous blood specimen / Unknown 11/01/2024 11:24 AM EDT 11/01/2024 12:05 PM EDT us Tea Curry MD LAB BLOOD ORDERABLES Final Result [facility] [address] [place] [phone] [phone] * (ABNORMAL) CBC auto differential (11/01/2024 11:24 AM EDT) White Blood Count 11.0(H) 4.8 - 10.8 X10*3/uL [facility] Red Blood Count 4.28 4.20 - 5.50 X10*6/uL [facility] Hemoglobin 12.4 12.0 - 16.0 g/dl [facility] Hematocrit 36.1(L) 37.0 - 47.0 % [facility] Mean Corpuscular Volume 84.3 80.0 - 98.0 fL [facility] Mean Corpuscular Hemoglobin 29.0 27.0 - 33.0 pg [facility] Mean Corpuscular HGB Conc 34.3 31.0 - 35.0 g/dl [facility] Red Cell Distribution Width 13.2 11.0 - 16.0 % [facility] Platelet Count 340 160 - 400 X10*3/uL [facility] Mean Platelet Volume 10.9 9.4 - 12.3 fL [facility] Neutrophils Percent Auto 67.8 45 - 73 % [facility] Imm Gran Pct Auto 0.8(H) 0.0 - 0.4 % [facility] Lymphocytes Percent Auto 19.2(L) 20 - 40 % [facility] Monocytes Percent Auto 8.7 2 - 11 % [facility] Eosinophils Percent Auto 2.6 0 - 4 % [facility] Basophils Percent Auto 0.9 0 - 2 % [facility] NRBC Pct Auto 0.0 0.0 - 0.2 /100WBC [facility] Neutrophils Absolute Auto 7.4 2.0 - 8.3 x10*3/uL [facility] Imm Gran Abs Auto 0.09(H) 0.00 - 0.03 X10*3/uL [facility] Lymphocytes Absolute Auto 2.1 1.2 - 4.9 X10*3/uL [facility] Monocytes Absolute Auto 1.0 0.1 - 1.2 X10*3/uL [facility] Eosinophils Absolute Auto 0.3 0.0 - 0.4 X10*3/uL [facility] Basophils Absolute Auto 0.1 0.0 - 0.2 X10*3/uL [facility] NRBC Abs Auto 0.000 0.0 - 0.012 X10*3/uL [facility] Blood Venous blood specimen / Unknown 11/01/2024 11:24 AM EDT 11/01/2024 12:05 PM EDT us Tea Curry MD LAB BLOOD ORDERABLES Final Result [facility] [address] [place] [phone] [phone] documented in this encounter Visit Diagnoses Diagnosis Chest tightness- Primary Other chest pain documented in this encounter Additional Health Concerns Assessment Noted Time PHQ-9 Depression Total Score: 4 03/14/20 24 11:37 AM EDT documented as of this encounter Care Teams High Worker Relationship Specialty Start Date End Date Anna Tineo MD [address] [place] [address] PCP - General Family Medicine 05/19/21 documented as of this encounter
--- OUTSIDE RECORDS SUMMARY | 2024-11-06 16:46 | XMS_ITS | Encounter Summary ---
Author Organization [facility] Address [address] [place] [address] 7 [place] [address] Care Team Providers Care Customer Care Specialist Name Role Phone Anna Tineo MD Primary Care Provider [phone] Encounter Details Date Type Department Care Team ([facility] st Contact Info) Description 11/06/2024 3:45 PM EDT Office Visit [facility] PEDS [address] [place] [address] Tea Curry MD [address] [place] [address] Acute non-recurrent maxillary sinusitis (Primary Dx) Social History Tobacco Use Types [...] Sign Reading Time Taken Comments Blood Pressure 122/65 11/06/2024 3:45 PM EDT Pulse 73 11/06/2024 3:45 PM EDT Temperature 36.5 ??C (97.7 ??F) 11/06/2024 3:45 PM ED T Respiratory Rate 20 11/06/2024 3:45 PM EDT Oxygen Saturation 96% 11/06/2024 3:45 PM EDT Inhaled Oxygen Concentration - - Weight 83.9 kg (185 lb) 11/06/2024 3:45 PM EDT Height 157.5 cm (5' 2 ) 11/06/2024 3:45 PM EDT Body Mass Index 33.84 11/06/2024 3:45 PM EDT documented in this encounter Plan of Treatment Upcoming Encounters Date Type Department Care Team (Late st Contact Info) Description 11/19/2024 3:30 PM EDT Office Visit [facility] PED[facility] [address] [place] [address] Anna Tineo MD [address] [place] [address] 11/26/2024 9:15 AM EDT Office Visit [facility] [address] [place] [address] Anna Tineo MD [address] [place] [address] Scheduled Orders Name Type Priority Associated Diagnoses Orde r Schedule CBC auto differential Lab Routine Acute non-recurrent maxillary sinusitis Expected: 11/06/2024 (Approximate), Expires: 11/06/2025 documented as of this encounter Visit Diagnoses Diagnosis Acute non-recurrent maxillary sinusitis- Primary documented in this encounter Additional Health Concerns Assessment Noted Time PHQ-9 Depression Total Score: 4 03/14/20 24 11:37 AM EDT documented as of this encounter Care Teams Customer Care Specialist Relationship Specialty Start Date End Date Anna Tineo MD [address] [place] [address] PCP - General Family Medicine 05/19/21 documented as of this encounter
--- OUTSIDE RECORDS SUMMARY | 2024-11-06 16:46 | XMS_ITS | Encounter Summary ---
Author Organization [employer] Address [address] [facility] [address] [place] [address] Care Team Providers Care Accounts Manager Name Role Phone Anna Tineo MD Primary Care Provider [phone] Encounter Details Date Type Department Care Team [...] Description 11/19/2024 3:30 PM EDT Office Visit [facility] MED & PEDS [address] [place] [address] Anna Tineo MD [address] [place] [address] 11/26/2024 9:15 AM EDT Office Visit [facility] PED[facility] [address] [place] [address] Anna Tineo MD [address] [place] [address] documented as of this encounter Visit Diagnoses Not on filedocumented in this encounter Additional Health Concerns Assessment Noted Time PHQ-9 Depression Total Score: 4 03/14/20 24 11:37 AM EDT documented as of this encounter Care Teams Accounts Manager Relationship Specialty Start Date End Date Anna Tineo MD [address] [place] [phone] PCP - General Family Medicine 05/19/21 documented as of this encounter
--- OUTSIDE RECORDS SUMMARY | 2024-11-06 16:46 | XMS_ITS | Encounter Summary ---
Author Organization [facility] Address [address] [place] [address] Care Team Providers Care Collar Starcher Name Role Phone Anna Tineo MD Primary Care Provider [phone] Reason for Visit * Reason Comments Abnormal Lab dimer Encounter Details Date Type Department Care Team (Late st Contact Info) Description 11/01/2024 3:19 PM EDT - 11/02/2024 12:11 AM EDT Emergency [facility] Emergency [address] [place] [address] Uriel Donovan MD [address] [place] [address] Shortness of breath (Primary Dx); Elevated d-dimer; Diverticulitis Discharge Disposition: Home or Self Care Social History Tobacco Use Types Packs/Day Years Used Date Smoking Tobacco: Never Smokeless Tobacco: Never Alcohol Use Standard Drinks/Week Comments Yes 0 (1 standard drink = 0.6 oz pur e alcohol) Comments Unknown Sex and Gender Information Value Date Recorded Sex Assigned at Not on file Legal Sex Female 7:26 AM EST Gender Identity Not on file Sexual Orientation Not on file documented as of this encounter Last Filed Vital Signs Vital Sign Reading Time Taken Comments Blood Pressure 103/54 11/01/2024 10:30 PM EDT Pulse 81 11/01/2024 10:30 PM EDT Temperature 37.2 ??C (99 ??F) 11/01/2024 9:29 PM EDT Respiratory Rate 16 11/01/2024 10:30 PM EDT Oxygen Saturation 97% 11/01/2024 10:30 PM EDT Inhaled Oxygen Concentration - - Weight 81.6 kg (180 lb) 11/01/2024 1:25 PM EDT Height 157.5 cm (5' 2 ) 11/01/2024 1:25 PM EDT Body Mass Index 32.92 11/01/2024 1:25 PM EDT documented in this encounter Discharge Instructions * Discharge Instructions* Uriel Donovan MD - 11/01/2024 11:25 PM EDT You were seen in the hospital for your elevated D-dimer. You are found that you have acute diverticulitis. We are sending antibiotics and probiotics to your pharmacy. In addition to this, please use your albuterol inhaler with a spacer. Please also take Tylenol and ibuprofen [id number]. Tylenol 1000 mg every 6 hours Ibuprofen 600 mg every 6 hours You can alternate between the Tylenol and the ibuprofen every 3 hours. * Attachments The following attachments cannot be sent through Care Everywhere. * Diverticulitis (Turkmen) documented in this encounter Medications at Time of Discharge bisoprolol-hydroC HLOROthiazide (ZIAC) 5-6.25 mg per tablet Take 1 tablet by mouth 1 (one) time each day. 11/20/2020 cholecalciferol (VITAMIN D-3) 50 mcg (2,000 unit) tablet Take 1 tablet (2,000 Units total) by mouth 1 (one) time each day. 05/31/2019 ciprofloxacin (CIPRO) 500 mg tablet Take 1 tablet (500 mg total) by mouth 2 (two) times a day for 10 days. 20 each 11/01/2024 11/11/2024 citalopram (CeleXA) 40 mg tablet Take 1 tablet (40 mg total) by mouth 1 (one) time each day. 11/20/2020 metroNIDAZOLE (FLAGYL) 500 mg tablet Take 1 tablet (500 mg total) by mouth 3 (three) times a day for 10 days. Do not use mouth wash or consume alcohol until 48 hours after last dose 30 each 11/01/2024 11/11/2024 pantoprazole (PROTONIX) 40 mg EC tablet Take 1 Tab by mouth daily for 180 days. 11/29/2019 saccharomyces boulardii (FLORASTOR) 250 mg capsule Take 1 capsule (250 mg total) by mouth 2 (two) times a day for 10 days. 20 capsule 11/01/2024 11/11/2024 documented as of this encounter Ordered Prescriptions Prescription Sig Dispense Quantity Refills Last Filled Start Date End Date saccharomyces boulardii (FLORASTOR) 250 mg capsule Take 1 capsule (250 mg total) by mouth 2 (two) times a day for 10 days. 20 capsule 11/01/2024 5 ciprofloxacin (CIPRO) 500 mg tablet Take 1 tablet (500 mg total) by mouth 2 (two) times a day for 10 days. 20 each 11/01/2024 5 metroNIDAZOLE (FLAGYL) 500 mg tablet Take 1 tablet (500 mg total) by mouth 3 (three) times a day for 10 days. Do not use mouth wash or consume alcohol until 48 hours after last dose 30 each 11/01/2024 documented in this encounter Discharge Disposition Disposition Code Departure Means Destination Comment s Home or Self Care documented in this encounter Progress Notes * Soto Barron RN - 11/01/2024 1:21 PM EDT Patient had outpatient labs for shortness of breath, has elevated d dimer. Sent for further eval. documented in this encounter Plan of Treatment Pending Results Name Type Priority Associated Diagnoses Date /Time Blood Culture, Peripheral Draw #1 Microbiology STAT 11/01/2024 9: 17 PM EDT Blood Culture, Peripheral Draw #2 Microbiology STAT 11/01/2024 9: 17 PM EDT documented as of this encounter Procedures Procedure Name Priority Date/Time Associated Diagnosis Comments ECG ANNOTATED 11/02/2024 CULTURE BLOOD STAT 11/01/2024 9:17 PM EDT CULTURE BLOOD STAT 11/01/2024 9:17 PM EDT LACTATE STAT 11/01/2024 9:16 PM EDT RESPIRATORY VIRUS PANEL MOLECULAR STUDY STAT 11/01/2024 8:03 PM EDT VAS US DUPLEX LOWER EXT VENOUS BILAT STAT 11/01/2024 5:04 PM EDT Elevated d-dimer CT ABDOMEN PELVIS W CONTRAST STAT 11/01/2024 4:[address] ANGIO CHEST WO AND/OR W CONTRAST STAT 11/01/2024 4:46 PM EDT Shortness of breath TROPONIN I HIGH SENSITIVITY STAT 11/01/2024 3:49 PM EDT B-TYPE NATRIURETIC PEPTIDE STAT 11/01/2024 3:49 PM EDT CBC WITH AUTO DIFFERENTIAL STAT 11/01/2024 2:43 PM EDT ACTIVATED PARTIAL THROMBOPLASTIN TIME STAT 11/01/2024 2:43 PM EDT CBC AND DIFFERENTIAL STAT 11/01/2024 2:43 PM EDT COMPREHENSIVE METABOLIC PANEL STAT 11/01/2024 2:43 PM EDT ECG 12-LEAD STAT 11/01/2024 2:38 PM EDT documented in this encounter Results * ECG-Annotated (11/02/2024) us Provider Onbase ECG ORDERABLES Final Result * Lactate (11/01/2024 9:16 PM EDT) Lactate 1.7 0.4 - 2.0 mmol/L LAB CHEMISTRY METHOD 11/01/2024 10:03 PM EDT [facility] Blood Venous blood specimen / Unknown Venipuncture / Unknown 11/01/2024 9:16 PM EDT 11/01/2024 9:30 PM EDT Uriel Donovan MD LAB BLOOD ORDERABLES Final Resu lt [facility] [address] [place] [address], * Respiratory virus panel molecular study (11/01/2024 8:03 PM EDT) Adenovirus Detection by PCR Not Detected Not Detected LAB MICROBIOLOGY METHOD 11/01/2024 8:59 PM EDT [facility] Influenza A PCR Not Detected Not Detected LAB MICROBIOLOGY METHOD 11/01/2024 8:59 PM EDT [facility] Influenza B PCR Not Detected Not Detected LAB MICROBIOLOGY METHOD 11/01/2024 8:59 PM EDT [facility] Coronavirus 229E Not Detected Not Detected LAB MICROBIOLOGY METHOD 11/01/2024 8:59 PM EDT [facility] Coronavirus HKU1 Not Detected Not Detected LAB MICROBIOLOGY METHOD 11/01/2024 8:59 PM EDT [facility] Coronavirus OC43 Not Detected Not Detected LAB MICROBIOLOGY METHOD 11/01/2024 8:59 PM EDT [facility] Coronavirus NL63 Not Detected Not Detected LAB MICROBIOLOGY METHOD 11/01/2024 8:59 PM EDT [facility] Parainfluenza Virus 1 Not Detected Not Detected LAB MICROBIOLOGY METHOD 11/01/2024 8:59 PM EDT [facility] Parainfluenza Virus 2 Not Detected Not Detected LAB MICROBIOLOGY METHOD 11/01/2024 8:59 PM EDT [facility] Parainfluenza Virus 3 Not Detected Not Detected LAB MICROBIOLOGY METHOD 11/01/2024 8:59 PM EDT [facility] Parainfluenza Virus 4 Not Detected Not Detected LAB MICROBIOLOGY METHOD 11/01/2024 8:59 PM EDT [facility] RSV PCR Not Detected Not Detected LAB MICROBIOLOGY METHOD 11/01/2024 8:59 PM EDT [facility] Human Metapneumovirus A and B Not Detected Not Detected LAB MICROBIOLOGY METHOD 11/01/2024 8:59 PM EDT [facility] Rhinovirus/Entero virus Not Detected Not Detected LAB MICROBIOLOGY METHOD 11/01/2024 8:59 PM EDT [facility] Bordetella pertussis Not Detected Not Detected LAB MICROBIOLOGY METHOD 11/01/2024 8:59 PM EDT [facility] Bordetella parapertussis Not Detected Not Detected LAB MICROBIOLOGY METHOD 11/01/2024 8:59 PM EDT [facility] Mycoplasma pneumo by PCR Not Detected Not Detected LAB MICROBIOLOGY METHOD 11/01/2024 8:59 PM EDT [facility] Chlamydia pneumoniae Not Detected Not Detected LAB MICROBIOLOGY METHOD 11/01/2024 8:59 PM EDT [facility] SARS COV-2 Not Detected Not Detected LAB MICROBIOLOGY METHOD 11/01/2024 8:59 PM EDT [facility] Swab Both anterior nares / Unknown Non-blood Collection / Unknown 11/01/2024 8:03 PM EDT 11/01/2024 8:06 PM EDT [facility] - 11/01/2024 8:59 PM EDT Testing was performed using the [employer] Respiratory Pathogen PCR Assay. All results must be correlated with the clinical findings. Results should not be used as the sole basis for diagnosis. False Negative results may occur from the presence of sequence variants in the region targeted by the assay or the presence of inhibitors. Results may be affected by concurrent antiviral/antimicrobial therapy or levels of organisms that are below the limit of detection. Uriel Donovan MD LAB MICROBIOLOGY - GENERAL JANNETTE CASTRO Final Result [facility] [address] [place] [address], * Vascular US Duplex Lower Extremity Venous Bilateral (11/01/2024 5:04 PM EDT) Anatomical Region Laterality Modality Vascular, Abdomen Ultrasound 11/01/2024 5:12 PM EDT Impressions 11/01/2024 5:13 PM EDT NO RIGHT OR LEFT LOWER EXTREMITY DEEP VENOUS THROMBOSIS. -------- FINAL REPORT -------- Dictated By: MILAN GAMINO Dictated Date: 11/01/2024 17:12 ET Assigned Physician: MILAN GAMINO Reviewed and Electronically Signed By: MILAN GAMINO Signed Date: 11/01/2024 17:13 ET Workstation ID: [id number] Transcribed By: Self Edit Transcribed Date: 11/01/2024 17:12 ET Narrative 11/01/2024 5:13 PM EDT PROCEDURE: VAS US DUPLEX LOWER EXT VENOUS BILAT INDICATION: Edema TECHNIQUE: 2-D and color Doppler imaging of the lower extremity venous vasculature with compression and augmentation maneuvers. COMPARISON: No priors available. FINDINGS: RIGHT: There is normal flow, compression, and augmentation from the common femoral through the popliteus. ??Visualized calf veins are patent. LEFT: There is normal flow, compression, and augmentation from the common femoral through the popliteus. ??Visualized calf veins are patent. Procedure Note Milan Gamino MD - 11/01/2024 PROCEDURE: VAS US DUPLEX LOWER EXT VENOUS BILAT INDICATION: Edema TECHNIQUE: 2-D and color Doppler imaging of the lower extremity venousvasculature with compression and augmentation maneuvers. COMPARISON: No priors available. FINDINGS: RIGHT: There is normal flow, compression, and augmentation from the commonfemoral through the popliteus. Visualized calf veins are patent. LEFT: There is normal flow, compression, and augmentation from the commonfemoral through the popliteus. Visualized calf veins are patent. IMPRESSION: NO RIGHT OR LEFT LOWER EXTREMITY DEEP VENOUS THROMBOSIS. -------- FINAL REPORT -------- Dictated By: MILAN GAMINO Dictated Date: 11/01/2024 17:12 ET Assigned Physician: MILAN GAMINO Reviewed and Electronically Signed By: MILAN GAMINO Signed Date: 11/01/2024 17:13 ET Workstation ID: [id number] Transcribed By: Self Edit Transcribed Date: 11/01/2024 17:12 ET us Uriel B Zion VANN CV VASCULAR PROCEDURES Final Re sult * CT Abdomen Pelvis w Contrast (11/01/2024 4:46 PM EDT) Anatomical Region Laterality Modality Body Computed Tomogra phy 11/01/2024 4:55 PM EDT Impressions 11/01/2024 4:57 PM EDT Acute uncomplicated diverticulitis of the sigmoid colon. -------- FINAL REPORT -------- Dictated By: Neo Bishop Dictated Date: 11/01/2024 16:55 ET Assigned Physician: Neo Bishop Reviewed and Electronically Signed By: Neo Bishop Signed Date: 11/01/2024 16:57 ET Workstation ID: [id number] Transcribed By: Self Edit Transcribed Date: 11/01/2024 16:55 ET Narrative 11/01/2024 4:57 PM EDT PROCEDURE: CT ABDOMEN/PELVIS WITH CONTRAST INDICATION: Diverticulitis suspected TECHNIQUE: CT of the abdomen and pelvis following the intravenous administration of 90cc Isovue 370. Multiplanar reformats. The examination was performed utilizing dose reduction techniques. Total DLP 1336 COMPARISON: ??No priors available. FINDINGS: ?? LOWER THORAX: Lung bases are clear. HEPATOBILIARY: No focal liver lesions. No cholelithiasis or biliary duct dilatation. SPLEEN: No focal lesion. PANCREAS: No focal mass or ductal dilatation. ADRENALS: No nodules. KIDNEYS/URETERS: No hydronephrosis, stones, or solid mass. PELVIC ORGANS/BLADDER: Unremarkable. PERITONEUM / RETROPERITONEUM: No ascites or free air. No retroperitoneal lymphadenopathy. VESSELS: Scattered atherosclerotic calcifications throughout the aorta and its major branches. No aneurysm. GI TRACT: Diverticulosis with diverticulitis of the sigmoid colon. ??No fluid collection or abscess. ??No free air. BONES AND SOFT TISSUES: Scattered degenerative changes seen throughout the bones. Small fat-containing umbilical hernia. Procedure Note Neo Bishop MD - 11/01/2024 PROCEDURE: CT ABDOMEN/PELVIS WITH CONTRAST INDICATION: Diverticulitis suspected TECHNIQUE: CT of the abdomen and pelvis following the intravenousadministration of 90cc Isovue 370. Multiplanar reformats. The examinationwas performed utilizing dose reduction techniques. Total DLP 1336 COMPARISON: No priors available. FINDINGS: LOWER THORAX: Lung bases are clear. HEPATOBILIARY: No focal liver lesions. No cholelithiasis or biliary ductdilatation. SPLEEN: No focal lesion. PANCREAS: No focal mass or ductal dilatation. ADRENALS: No nodules. KIDNEYS/URETERS: No hydronephrosis, stones, or solid mass. PELVIC ORGANS/BLADDER: Unremarkable. PERITONEUM / RETROPERITONEUM: No ascites or free air. No retroperitoneallymphadenopathy. VESSELS: Scattered atherosclerotic calcifications throughout the aorta andits major branches. No aneurysm. GI TRACT: Diverticulosis with diverticulitis of the sigmoid colon. Nofluid collection or abscess. No free air. BONES AND SOFT TISSUES: Scattered degenerative changes seen throughout thebones. Small fat-containing umbilical hernia. IMPRESSION: Acute uncomplicated diverticulitis of the sigmoid colon. -------- FINAL REPORT -------- Dictated By: Neo Bishop Dictated Date: 11/01/2024 16:55 ET Assigned Physician: Neo Bishop Reviewed and Electronically Signed By: Neo Bishop Signed Date: 11/01/2024 16:57 ET Workstation ID: [id number] Transcribed By: Self Edit Transcribed Date: 11/01/2024 16:55 ET Uriel Donovan MD IMG CT PROCEDURES Final Result * CT Angio Chest wo and/or w Contrast (11/01/2024 4:46 PM EDT) Anatomical Region Laterality Modality Body Computed Tomogra phy 11/01/2024 4:51 PM EDT Impressions 11/01/2024 4:54 PM EDT No acute findings. -------- FINAL REPORT -------- Dictated By: Neo Bishop Dictated Date: 11/01/2024 16:51 ET Assigned Physician: Neo Bishop Reviewed and Electronically Signed By: Neo Bishop Signed Date: 11/01/2024 16:54 ET Workstation ID: [id number] Transcribed By: Self Edit Transcribed Date: 11/01/2024 16:51 ET Narrative 11/01/2024 4:54 PM EDT PROCEDURE: CT ANGIO CHEST INDICATION: PE suspected, low/intermediate prob, positive D-dimer COMPARISON: None. TECHNIQUE: CT pulmonary angiogram performed following uneventful IV administration of ISOVUE contrast material with bolus timing technique from the thoracic inlet through the lung bases. ?? 3-D multiplanar reformations were obtained by the technologist on an independent workstation. GE Lightspeed VCT dose reduction utilizing iterative reconstruction. Total exam ??DLP 1330 (mGy-cm) FINDINGS: No acute pulmonary embolism The heart is within normal limits in size. There is no pericardial effusion. ??The thoracic aorta is normal in caliber. Thyroid nodules. ??No adenopathy. No consolidation There are no pleural effusions. The visualized portion of the upper abdomen demonstrates no acute findings however technique was not optimized for evaluation for more subtle lesions. The included skeletal structures are within normal limits for technique. Bilateral breast implants. Procedure Note Neo Bishop MD - 11/01/2024 PROCEDURE: CT ANGIO CHEST INDICATION: PE suspected, low/intermediate prob, positive D-dimer COMPARISON: None. TECHNIQUE: CT pulmonary angiogram performed following uneventful IVadministration of ISOVUE contrast material with bolus timing techniquefrom the thoracic inlet through the lung bases. 3-D multiplanar reformations were obtained by the technologist on anindependent workstation. GE Lightspeed VCT dose reduction utilizing iterative reconstruction. Total exam DLP 1330 (mGy-cm) FINDINGS: No acute pulmonary embolism The heart is within normal limits in size. There is no pericardialeffusion. The thoracic aorta is normal in caliber. Thyroid nodules. No adenopathy. No consolidation There are no pleural effusions. The visualized portion of the upper abdomen demonstrates no acute findingshowever technique was not optimized for evaluation for more subtlelesions. The included skeletal structures are within normal limits for technique. Bilateral breast implants. IMPRESSION: No acute findings. -------- FINAL REPORT -------- Dictated By: Neo Bishop Dictated Date: 11/01/2024 16:51 ET Assigned Physician: Neo Bishop Reviewed and Electronically Signed By: Neo Bishop Signed Date: 11/01/2024 16:54 ET Workstation ID: [id number] Transcribed By: Self Edit Transcribed Date: 11/01/2024 16:51 ET us Uriel Donovan MD IMG CT PROCEDURES Final Result * B-type natriuretic peptide (11/01/2024 3:49 PM EDT) [facility] BNP 10 <=100 pcg/mL LAB CHEMISTRY METHOD 11/01/2024 4:43 PM EDT [facility] Blood Venous blood specimen / Unknown Venipuncture / Unknown 11/01/2024 3:49 PM EDT 11/01/2024 3:54 PM EDT us Uriel Donovan MD LAB BLOOD ORDERABLES Final Resu lt Performing Organization Address [facility] Co de Phone Number [facility] [address] [place] [address], [place] [phone] * Troponin I high sensitivity (11/01/2024 3:49 PM EDT) [facility] High Sensitivity Troponin I 3 <=54 ng/L LAB CHEMISTRY METHOD 11/01/2024 4:41 PM EDT [facility] Blood Venous blood specimen / Unknown Venipuncture / Unknown 11/01/2024 3:49 PM EDT 11/01/2024 3:54 PM EDT Narrative [facility] - 11/01/2024 4:41 PM EDT High levels of biotin in samples may falsely decrease hsTroponin values. ??Use caution when interpreting hsTroponin results in patients taking biotin who exhibit renal impairment (eGFR <60) or in patients taking more than 20 mg/day of biotin. us Uriel Donovan MD LAB BLOOD ORDERABLES Final Resu lt Performing Organization Address [facility]/ZIP Co de Phone Number [facility] [address] [place] [address], [place] [phone] * (ABNORMAL) CBC auto differential (11/01/2024 2:43 PM EDT) [facility] Signature WBC 10.8 4.8 - 10.8 K/mcL LAB HEMETOLOGY METHOD 11/01/2024 3:14 PM EDT [facility] RBC 4.30 3.80 - 4.80 M/mcL LAB HEMETOLOGY METHOD 11/01/2024 3:14 PM EDT [facility] Hemoglobin 12.4 11.5 - 16.0 g/dL LAB HEMETOLOGY METHOD 11/01/2024 3:14 PM EDT [facility] Hematocrit 37.4 35.0 - 47.0 % LAB HEMETOLOGY METHOD 11/01/2024 3:14 PM EDT [facility] MCV 86.6 79.0 - 98.0 FL LAB HEMETOLOGY METHOD 11/01/2024 3:[facility] MCH 28.7 27.0 - 32.0 pcg LAB HEMETOLOGY METHOD 11/01/2024 3:14 PM EDT [facility] MCHC 33.2 32.0 - 37.0 g/dL LAB HEMETOLOGY METHOD 11/01/2024 3:14 PM EDT [facility] RDW 13.2 11.0 - 15.0 % LAB HEMETOLOGY METHOD 11/01/2024 3:14 PM EDT [facility] Platelets 347 130 - 400 K/mcL LAB HEMETOLOGY METHOD 11/01/2024 3:14 PM EDT [facility] MPV 10.9 7.0 - 11.0 FL LAB HEMETOLOGY METHOD 11/01/2024 3:14 PM EDT [facility] NRBC 0.0 <1.0 % LAB HEMETOLOGY METHOD 11/01/2024 3:14 PM EDT [facility] NRBC Absolute 0.00 <0.10 K/mcL LAB HEMETOLOGY METHOD 11/01/2024 3:14 PM [facility] Neutrophils Relative 64.2 % LAB HEMETOLOGY METHOD 11/01/2024 3:14 PM [facility] Lymphocytes Relative 22.1 % LAB HEMETOLOGY METHOD 11/01/2024 3:14 PM [facility] Monocytes Relative 9.3 % LAB HEMETOLOGY METHOD 11/01/2024 3:14 PM [facility] Eosinophils Relative 2.7 % LAB HEMETOLOGY METHOD 11/01/2024 3:14 PM [facility] Basophils Relative 0.9 % LAB HEMETOLOGY METHOD 11/01/2024 3:14 PM [facility] Immature Granulocytes Relative 0.8 % LAB HEMETOLOGY METHOD 11/01/2024 3:14 PM [facility] Neutrophils Absolute 6.91 1.50 - 7.00 K/mcL LAB HEMETOLOGY METHOD 11/01/2024 3:14 PM [facility] Lymphocytes Absolute 2.38 1.00 - 5.00 K/mcL LAB HEMETOLOGY METHOD 11/01/2024 3:14 PM [facility] Monocytes Absolute 1.00 0.20 - 1.00 K/mcL LAB HEMETOLOGY METHOD 11/01/2024 3:14 PM [facility] Eosinophils Absolute 0.29 0.00 - 0.50 K/mcL LAB HEMETOLOGY METHOD 11/01/2024 3:14 PM [facility] Basophils Absolute 0.10 0.00 - 0.20 K/mcL LAB HEMETOLOGY METHOD 11/01/2024 3:14 PM [facility] Immature Granulocytes Absolute 0.09(H) 0.00 - 0.03 K/mcL LAB HEMETOLOGY METHOD 11/01/2024 3:14 PM [facility] Blood Venous blood specimen / Unknown Venipuncture / Unknown 11/01/2024 2:43 PM EDT 11/01/2024 3:04 PM EDT Yao Vargas DO LAB BLOOD ORDERABLES Final Result Performing Organization Address [facility]/ZIP Co de Phone Number [facility] [address] [place] [address], [place] [phone] * APTT (11/01/2024 2:43 PM EDT) aPTT 31.1 24.1 - 39.3 sec LAB COAGULATION METHOD 11/01/2024 3:15 PM EDT [facility] Blood Venous blood specimen / Unknown Venipuncture / Unknown 11/01/2024 2:43 PM EDT 11/01/2024 3:04 PM EDT Yao Vargas DO LAB BLOOD ORDERABLES Final Result Performing Organization Address [facility]/ZIP Co de Phone Number [facility] [address] [place] [address], [place] [phone] * (ABNORMAL) Comprehensive metabolic panel (11/01/2024 2:43 PM EDT) Pathologist [facility] Sodium 138 133 - 145 mmol/L LAB CHEMISTRY METHOD 11/01/2024 3:32 PM EDT [facility] Potassium 5.2 3.5 - 5.5 mmol/L LAB CHEMISTRY METHOD 11/01/2024 3:32 PM EDT [facility] Chloride 106 96 - 110 mmol/L LAB CHEMISTRY METHOD 11/01/2024 3:32 PM EDT [facility] CO2 26 21 - 32 mmol/L LAB CHEMISTRY METHOD 11/01/2024 3:32 PM EDT [facility] Anion Gap 6 3 - 11 LAB CHEMISTRY METHOD 11/01/2024 3:32 PM EDT [facility] Glucose 99 70 - 100 mg/dL LAB CHEMISTRY METHOD 11/01/2024 3:32 PM [facility] BUN 19 5 - 25 mg/dL LAB CHEMISTRY METHOD 11/01/2024 3:32 PM [facility] Creatinine 1.09 0.50 - 1.10 mg/dL LAB CHEMISTRY METHOD 11/01/2024 3:32 PM [facility] eGFR 56(L) >=60 mL/min/1. 73m2 LAB CHEMISTRY METHOD 11/01/2024 3:32 PM [facility] Comment:Calculation based on the Chronic Kidney Disease Epidemiology Collaboration (CKD-EPI) equation refit without adjustment for race. BUN/Creatinine Ratio 17.4 LAB CHEMISTRY METHOD 11/01/2024 3:32 PM [facility] Calcium 10.0 8.5 - 10.5 mg/dL LAB CHEMISTRY METHOD 11/01/2024 3:32 PM [facility] AST (SGOT) 11 10 - 42 unit/L LAB CHEMISTRY METHOD 11/01/2024 3:32 PM [facility] ALT (SGPT) 23 10 - 60 unit/L LAB CHEMISTRY METHOD 11/01/2024 3:32 PM [facility] [facility] Alkaline Phosphatase 114 42 - 121 unit/L LAB CHEMISTRY METHOD 11/01/2024 3:32 PM [facility] Total Protein 7.5 6.0 - 8.0 g/dL LAB CHEMISTRY METHOD 11/01/2024 3:32 PM [facility] Albumin 4.0 3.2 - 5.0 g/dL LAB CHEMISTRY METHOD 11/01/2024 3:32 PM [facility] Total Bilirubin 2.6(H) 0.0 - 1.4 mg/dL LAB CHEMISTRY METHOD 11/01/2024 3:32 PM [facility] Blood Venous blood specimen / Unknown Venipuncture / Unknown 11/01/2024 2:43 PM EDT 11/01/2024 3:04 PM EDT us Yao Vargas DO LAB BLOOD ORDERABLES Final Result Performing Organization Address City/[facility]/ZIP Co de Phone Number [facility] [address] [place] [address], [place] [phone] * ECG 12 lead (11/01/2024 2:38 PM EDT) Ventricular Rate ECG 67 BPM GEMUSE Atrial Rate 67 BPM GEMUSE P-R Interval 186 ms GEMUSE QRS Duration 80 ms GEMUSE Q-T Interval 422 ms GEMUSE QTc 445 ms GEMUSE P Wave [place] 75 degrees GEMUSE R [place] 5 degrees GEMUSE T [place] 59 degrees GEMUSE ECG Interpretation Normal sinus rhythm Normal ECG When compared with ECG of 28-APR-2021 23:25, No significant change was found Confirmed by GERTRUDIS BRAY ([id number]) on 11/01/2024 8:53:50 PM GEMUSE 11/01/2024 2:38 PM EDT 11/01/2024 8:53 PM EDT Yao Vargas DO ECG ORDERABLES Final Resul t Performing Organization Address [facility] Co de Phone Number GEMUSE documented in this encounter Visit Diagnoses Diagnosis Shortness of breath- Primary Elevated d-dimer Diverticulitis Diverticulitis of colon (without mention of hemorrhage) documented in this encounter Administered Medications Inactive Administered Medications - up to 3 most recent administrations Medication Order MAR Action Action Date Dose Rate Site acetaminophen (TYLENOL) tablet 1,000 mg 1,000 mg, oral, Once, On Frannie 11/01/24 at 1737, For 1 dose Given 11/01/2024 5:42 PM EDT 1,000 mg ibuprofen (ADVIL,MOTRIN) tablet 600 mg 600 mg, oral, Once, On Frannie 11/01/24 at 2041, For 1 dose, Administer with food or milk to decrease GI upset Given 11/01/2024 8:50 PM EDT 600 mg iopamidoL (ISOVUE-370) 370 mg iodine /mL (76 %) injection 90 mL 90 mL, intravenous, Once in imaging, Starting on Frannie 11/01/24 at 1611, For 1 dose Given 11/01/2024 4:31 PM EDT 90 mL ipratropium-albuteroL (DUONEB) 0.5-2.5 mg/3 mL nebulizer solution 3 mL 3 mL, nebulization, Once, On Frannie 11/01/24 at 1737, For 1 dose Given 11/01/2024 5:43 PM EDT 3 mL ondansetron (PF) (ZOFRAN) injection 4 mg 4 mg, intravenous, Once, On Frannie 11/01/24 at 1733, For 1 dose Given 11/01/2024 5:42 PM EDT 4 mg sodium chloride 0.9 % bolus 1,000 mL 1,000 mL, intravenous, at 2,000 mL/hr, Administer over 30 Minutes, Once, On Frannie 11/01/24 at 1817, For 1 dose New Bag 11/01/2024 6:35 PM EDT 1,000 mL 2000 mL/hr sodium chloride 0.9 % bolus 500 mL 500 mL, intravenous, at 1,000 mL/hr, Administer over 30 Minutes, Once, On Frannie 11/01/24 at 204, For 1 dose New Bag 11/01/2024 8:50 PM EDT 500 mL 1000 mL/hr sodium chloride 0.9 % flush 10 mL 10 mL, intravenous, Once, On Frannie 11/01/24 at 1612, For 1 dose Given 11/01/2024 4:31 PM EDT 10 mL documented in this encounter Active and Recently Administered Medications Times are shown in EDT. Scheduled Medication Order 10/31/2024 11/01/2024 11/02/2024 acetaminophen (TYLENOL) tablet 1,000 mg (COMPLETED) 1,000 mg, oral, Once, On Frannie 11/01/24 at 1737, For 1 dose 174 (Given - Provider: Sera Pressley RN) ibuprofen (ADVIL,MOTRIN) tablet 600 mg (COMPLETED) 600 mg, oral, Once, On Frannie 11/01/24 at 2040, For 1 dose, Administer with food or milk to decrease GI upset 2049 (Given - Provider: Oswaldo Eaton RN) iopamidoL (ISOVUE-370) 370 mg iodine /mL (76 %) injection 90 mL (COMPLETED) 90 mL, intravenous, Once in imaging, Starting on Frannie 11/01/24 at 1611, For 1 dose 1631 (Given - Provider: Elvira Hurst) ipratropium-albuteroL (DUONEB) 0.5-2.5 mg/3 mL nebulizer solution 3 mL (COMPLETED) 3 mL, nebulization, Once, On Frannie 11/01/24 at 1737, For 1 dose 1743 (Given - Provider: Sera Pressley RN) ondansetron (PF) (ZOFRAN) injection 4 mg (COMPLETED) 4 mg, intravenous, Once, On Frannie 11/01/24 at 1733, For 1 dose 1742 (Given - Provider: Sera Pressley RN) sodium chloride 0.9 % bolus 1,000 mL (COMPLETED) 1,000 mL, intravenous, at 2,000 mL/hr, Administer over 30 Minutes, Once, On Frannie 11/01/24 at 1817, For 1 dose 1835 (New Bag - Provider: Sera Pressley RN)1948 (Stopped - Provider: Jen Eaton RN) sodium chloride 0.9 % bolus 500 mL (COMPLETED) 500 mL, intravenous, at 1,000 mL/hr, Administer over 30 Minutes, Once, On Frannie 11/01/24 at 2041, For 1 dose 2050 (New Bag - Provider: Jen Eaton RN)2129 (Stopped - Provider: Jen Eaton RN) sodium chloride 0.9 % flush 10 mL (COMPLETED) 10 mL, intravenous, Once, On Frannie 11/01/24 at 1612, For 1 dose 1631 (Given - Provider: Elvira Hurst) documented in this encounter Additional Health Concerns Infection Onset Date Last Indicated Resolved Time Respiratory Rule-Out 11/01/2024 11/01/2024 025 8:59 PM EDT COVID-19 Rule-Out 11/01/2024 11/01/2024 11/01/2024 8:59 PM EDT documented as of this encounter Care Teams Collar Starcher Relationship Specialty Start Date End Date Anna Tineo MD [address] [place] [phone] PCP - General 02/24/22 documented as of this encounter
--- OUTSIDE RECORDS SUMMARY | 2024-11-06 16:46 | XMS_ITS | Encounter Summary ---
Author Organization [employer] Address [address] [place] [address] 7 [place] [address] Care Team Providers Care Creel Operator Name Role Phone Anna Tineo MD Primary Care Provider [phone] Encounter Details Date Type Department Care Team ([facility] st Contact Info) Description 10/22/2024 2:20 PM EDT Office Visit [facility]EDS [address] [place], [place] [phone] Tea Curry MD [address] [place] [address] Acute non-recurrent maxillary sinusitis (Primary Dx); Chest [...] Description 11/19/2024 3:30 PM EDT Office Visit [facility] [address] [place] [address] Anna Tineo MD [address] [place] [address] 11/26/2024 9:15 AM EDT Office Visit [facility] [address] [place] [address] Anna Tineo MD [address] [place] [address] documented as of this encounter Procedures Procedure [...] Influenza B OSOM (10/22/2024 2:55 PM EDT) Rapid Influenza B Ag Negative Negative, Indeterminate [...] Rapid Covid-19 BinaxNOW (10/22/2024 2:50 PM EDT) Rapid COVID Ag Negative QC Media Lot [...] documented as of this encounter Care Teams Creel Operator Relationship Specialty Start Date End Date Anna Tineo MD [address] [place] [address] PCP - General Family Medicine 05/19/21 documented as of this encounter
--- OUTSIDE RECORDS SUMMARY | 2024-11-06 16:46 | XMS_ITS | Data Portability ---
Author Organization [facility]OR[facility] Esp[facility], [address] Address [address] [place] [address] Care Team Providers Care Basin Finish Operator Tig Welder Name Role Phone RICKEY REJULIO Acid Cleaner [phone] FIDELIA LANG Acid Cleaner Assessment No assessment recorded. Plan of Treatment Reminders Order Date Submit Date Provider Last Modified By Organization Details Last Modified Time Details Appointments None recorded. Lab None recorded. Referral None recorded. Procedures None recorded. Surgeries None recorded. Imaging None recorded. Medication Orders triamcinolo ne acetonide 0.1 % topical cream 2022 023 [id number], [address] [place], [address], 14:55:09 Patient TargetsNo targets recorded. Patient Instructions Encounter Date Encounter Id Patient Instructions Last Modified By Organization Details Last Modified Time 06/26/2022 [id number] hives: care instructions sghohestanib Not available 06/26/2022 14:55:07 Please find minerva gonzales the plan of care that will assist in your recovery: There is no indication of infection, so antibiotics are not indicated at this time. -I highly encourage you to purchase an yygd-obh-tkmwdel emollient moisturizer (the one you showed be [...] to seasonal allergies, you can also take fevg-gvj-cfxvley antihistamines such as loratadine (Claritin) or certrizine [...] the rash in 2-3 days via the [email or web address] eriberto for assessment. ? Wash with lukewarm [...] and Address Organization Details Recorded Time Anxiety 16656340 Active 2022 Elle Azael null, PA - [facility] 3 14:19:12 Depressive disorder 35389930 Active 2022 Lele Caseville null, PA - [facility] 3 14:19:18 Hypertensive disorder 63569887 Active 2022 Elle Caseville null, PA - [facility] 3 14:19:29 Problem Notes None recorded. Medical Equipment None Reported. Allergies Allergen ID Allergen Name Allergen Category Reaction Reaction Severity Criticality Documentation Date Start Date Code Code System Note Provider Name and Address Organization Details Recorded Time 82504 Substance with sulfonami de structure and antibacte rial mechanism of action (substanc e) medicatio n fever Not available high 06/26/2022 29125 8003 SNOMED Elle Azael null, PA - [...] Updated DateTime 3 157.48 cm 34.2 kg/m2 64113.7 7 g 95 % 95 % 69 /min 20 /min 98.2 [degF] 124 mm[Hg] 82 mm[Hg] Elle [place] 46elks 14:21:22 Social History Question Answer Notes LastModified by [employer] Details LastModified Time Tobacco Smoking Status Never Smoker Elle casanova L[facility]ENEress 06/26/2022 14:19:39 Have You Had Direct Contact, Or Contact During Intimacy, With Monkeypox Rash, Scabs, Or Body Fluids From A Person With Monkeypox? No Information not available 06/26/2022 Have You Recently Traveled Abroad? No Information not available 06/26/2022 Sex: Unknown Functional Status Question Answer Note LastModified by [employer] Details LastModified Time Do you use any [...] 30 mcg/0.3 mL dose 09/27/2020 completed Elle Caseville null, PA - [facility] 06/26/2022 14:18:13 COVID-19, mRNA, LNP-S, PF, 30 mcg/0.3 mL dose 09/06/2020 completed Elle Azael null, PA - [facility] 06/26/2022 14:18:13 Past Encounters Encounter ID Performer Location Encounter Start Date Encounter Closed Date Diagnosis/Indication Diagnosis SNOMED-CT Code Diagnosis ICD10 Code Diagnosis Note [id number] [address] [place] [address] 06/10/2016 08:32:16 06/10/2016 10:23:57 [id number] [address] [place] [address] 06/01/2016 08:46:44 06/01/2016 10:26:53 [id number] [address] [place] [address] 02/12/2021 15:57:37 02/12/2021 18:34:49 [id number] [address] [place] [address] 05/30/2016 17:31:53 05/30/2016 19:27:27 [id number] LORETO ROSE [address] [place] [address] 06/26/2022 14:02:12 06/26/2022 14:59:38 Generalized rash 362010598 R21 Health Concerns Section Related Observation LastModified by Organization Detai ls LastModified Time None Recorded Concern Status LastModified by Organization Details LastModified Time None Recorded Advance Directives Directive None Recorded Payers Insurance Date Sequence Insurance Name Policy Number Policy Spence Covered Member ID Spence Member ID Guarantor Name 06/26/2022 1 [facility] NET PLAN (MEDICAID HMO) [id number] Ivonne Beasley [id number] Ivonne Beasley 05/10/2022 GENERIC WORKER'S COMP (MOVED TO HOLD) Ivonne Beasley 05/19/2022 [employer] [facility] Occ Med Generic (Move To Hold) [[id number]] Ivonne Beasley Notes Date Note Type Note [...] is still having symptoms. BIRD Whelan, LORETO [address] [place] [address] [place], [address], [place] - [facility] 06/26/2022 14:58:09 OBGyn Episode No OBEpisode recorded.
--- OUTSIDE RECORDS SUMMARY | 2024-11-06 16:46 | XMS_ITS | Encounter Summary ---
Author Organization [employer] Address [address] [facility] 7t [place] [address] Care Team Providers Care Wash Plant Operator Name Role Phone Anna Tineo MD Primary Care Provider [phone] Reason for Visit * Reason Onset Date Comments Results 11/01/2024 Encounter Details Date Type Department Care Team (Latest Contact Info) Description 11/01/2024 Results Follow-Up [facility] MED & PEDS [address] [place] [address] Coleen Hopper, RN CBC auto differential Social History Tobacco Use Types Packs/Day Years [...] encounter Miscellaneous Notes * Telephone Encounter - Coleen Hopper RN - 11/01/2024 12:32 PM EDT TC to pt to explain elevated WBC count and that Dr. Curry is recommending abx. Pt should call usafter taking the full course if she does not feel any better. Pt verbalizes understanding and agreement with the plan of care. ----- Message from Tea Curry MD sent at 11/01/2024 12:19 PM EDT ----- Please call. Patient has elevated white blood cells. I recommend doxycycline 10 mg to take 2 times a day. She is to call the office if not feeling better after treatment. ----- Message ----- From: Interface, Lab Results In Sent: 11/01/2024 12:17 PM EDT To: Tea Curry MD documented in this encounter Plan of Treatment Upcoming Encounters Date Type Department Care Team (Late st Contact Info) Description 11/19/2024 3:30 PM EDT Office Visit [facility] MED & PEDS [address] [place] [address] Anna Tineo MD [address] [place] [address] 11/26/2024 9:15 AM EDT Office Visit [facility] MED & PEDS [address] [place] [address] Anna Tineo MD [address] [place] [address] documented as of this encounter Visit Diagnoses Not on filedocumented in this encounter Additional Health Concerns Assessment Noted Time PHQ-9 Depression Total Score: 4 03/14/20 24 11:37 AM EDT documented as of this encounter Care Teams Wash Plant Operator Relationship Specialty Start Date End Date Anna Tineo MD [address] [place] [address] PCP - General Family Medicine 05/19/21 documented as of this encounter
--- OUTSIDE RECORDS SUMMARY | 2024-11-06 16:46 | XMS_ITS | Encounter Summary ---
Author Organization [employer] Address [address] [facility] 7 [place] [address] Care Team Providers Care Professor Of Finance Name Role Phone Anna Tineo MD Primary Care Provider [phone] Reason for Visit * Reason Comments Med Refill Encounter Details Date Type Department Care Team ([facility] Contact Info) Description 06/07/2023 Refill [facility] PEDS [address] [place] [address] Chelle James MD [address] [place] [address] Social History Tobacco Use Types Packs/Day Years [...] 3:30 PM EDT Office Visit [facility] MED & PEDS [address] [place] [address] Anna Tineo MD [address] [place] [address] 11/26/2024 9:15 AM EDT Office Visit [facility] MED & PEDS [address] [place] [address] Anna Tineo MD [address] [place] [address] documented as of this encounter Visit Diagnoses Not on filedocumented in this encounter Care Teams Professor Of Finance Relationship Specialty Start Date End Date Anna Tineo MD [address] [place] [address] PCP - General Family Medicine 05/19/21 documented as of this encounter
--- OUTSIDE RECORDS SUMMARY | 2024-11-06 16:46 | XMS_ITS | Encounter Summary ---
Author Organization [employer] Address [address] [facility] 7 [place] [address] Care Team Providers Care Pattern Duplicator Name Role Phone Anna Tineo MD Primary Care Provider [phone] Reason for Visit * Reason Onset Date Comments Critical lab 11/01/2024 Encounter Details Date Type Department Care Team ([facility] st Contact Info) Description 11/01/2024 Telephone [facility] [address] [place] [address] Tea Curry MD [address] [place] [address] Critical lab Social History Tobacco Use Types Packs/Day Years [...] enough money to get more: Never True 10/ Transportation Answer Date Recorded In the past [...] Encounter - Nel Villarreal RN - 11/01/2024 1:10 PM EDT Provider notified of critical lab. (D-Dimer 486) Instructed to tell patient to go to ER. TC to patient instructing her to go to the ER due to abnormal lab work. Patient stated verbal understanding and agreed to go to [facility] ER. Expect called to [facility] ER. * Telephone Encounter - Ursula Castaneda RN - 11/01/2024 12:34 PM EDT Incoming call from Griselda , at the [facility] lab. Griselda states the pt's D-Dimer was 486 at 1124 am today .Will route to Dr. Curry , ordering Provider for review .TY . Will also route to the [facility] nurses for review as well . TY. A warm handoff call was placed to Nel Delgado RN at [facility]. documented in this encounter Plan of Treatment Upcoming Encounters Date Type Department Care Team (Late st Contact Info) Description 11/19/2024 3:30 PM EDT Office Visit [facility] MED & PEDS [address] [place] [address] Anna Tineo MD [address] [place] [address] 11/26/2024 9:15 AM EDT Office Visit [facility] PEDS [address] [place] [address] Anna Tineo MD [address] [place] [address] documented as of this encounter Visit Diagnoses Not on filedocumented in this encounter Additional Health Concerns Assessment Noted Time PHQ-9 Depression Total Score: 4 03/14/20 24 11:37 AM EDT documented as of this encounter Care Teams Pattern Duplicator Relationship Specialty Start Date End Date Anna Tineo MD [address] [place] [address] PCP - General Family Medicine 05/19/21 documented as of this encounter
--- OUTSIDE RECORDS SUMMARY | 2024-11-06 16:46 | XMS_ITS | Encounter Summary ---
Author Organization [employer] Address [address] [facility] 7t [place] [address] Care Team Providers Care Analog Ic Design Architect Name Role Phone Anna Tineo MD Primary Care Provider [phone] Encounter Details Date Type Department Care Team ([facility] st Contact Info) Description 04/17/2024 Orders Only [facility] MED & PEDS [address] [place] [address] ProviderArnulfo MD Social History Tobacco Use Types Packs/Day Years [...] Description 11/19/2024 3:30 PM EDT Office Visit [facility] MED & PEDS [address] [place] [address] Anna Tineo MD [address] [place] [address] 11/26/2024 9:15 AM EDT Office Visit [facility] MED & PED[facility] [address] [place] [address] Anna Tineo MD [address] [place] [address] documented as of this encounter Procedures Procedure Name Priority Date/Time Associated Diagnosis Comments THINPREP IMAGING PAP AND HPV MRNA E6/E7 Routine 04/17/2024 9:50 AM EDT MAMMOGRAPHY Routine 08/08/2023 9:23 AM EST documented in this encounter Results * ThinPrep Imaging Pap and HPV mRNA E6/E7 (04/17/2024 9:50 AM EDT) HPV nRNA E6/E7 Not Detected Not Detected [facility] Comment:Methodology: Transcr iption-Mediated AmplificationThis assay detects E6/E7 viral messenger RNA (mRNA) from 14high-risk HPV types (16,18,31,33,35,39,45,51,52,56,58,59,66,68).Cervical sources are required for HPV testing.If a vaginal source from a patient who has had atotal hysterectomy with removal of cervix wassubmitted, please contact the testing laboratoryfor alternative testing options.For additional information, please refer tohttp://education.[employer]/faq/KAA984y5(This link if provided for information/educational purposes only.)THIS TEST WAS PERFORMED AT:[facility] [address] [address]WWVGYDONG HAYS MD SOURCE: SEE NOTE [facility] Comment:Cervix Report Status: [facility] Clinical Information: SEE NOTE [facility] Comment:None given LMP: SEE NOTE [facility] Comment:NONE GIVEN Prev. PAP: SEE NOTE [facility] Comment:NONE GIVEN Prev. BX: SEE NOTE [facility] Comment:NONE GIVEN Statement Of Adequacy: SEE NOTE [facility] Comment:SATISFA[employer]ORY FOR SHALONDA LUATION General Categorization: [facility] Interpretation/Result: SEE NOTE [facility] Comment:Cytology Results: Ne gative for intraepitheliallesion or malignancy.Atrophic pattern; predominantly parabasal cells Cytology Comment SEE NOTE [facility] Comment:This Pap test has be en evaluated with computerassisted technology. Plumbing Contractor: SEE NOTE [facility] Comment:MRC, CT(ASCP) CT scr eening location: [address] [address] Review Plumbing Contractor: [facility] Pathologist [facility] PAP Infection [facility] See Note SEE NOTE [facility] Comment:EXPLANATORY NOTE:The Pap is a screening test for cervical cancer. It isnot a diagnostic test and is subject to false negativeand false positive results. It is most reliable when asatisfactory sample, regularly obtained, is submittedwith relevant clinical findings and history, and whenthe Pap result is evaluated along with historic andcurrent clinical information. 04/17/2024 9:50 AM EDT 04/17/2024 3:06 PM EDT Narrative [facility] - 04/23/2024 12:27 PM EST SEE SCANNED RESULTS IN EMRCERVIX us Anna Tineo MD LAB PATHOLOGY ORDERABLES Nidhi l Result [facility] [address] [place] [address] [phone] * Hm Mammography (08/08/2023 9:23 AM EST) Anatomical Region Laterality Modality Other us Historical Provider MD HEALTH MAINTENANCE Final Result documented in this encounter Visit Diagnoses Not on filedocumented in this encounter Additional Health Concerns Assessment Noted Time PHQ-9 Depression Total Score: 4 03/14/20 24 11:37 AM EDT documented as of this encounter Care Teams Analog Ic Design Architect Relationship Specialty Start Date End Date Anna Tineo MD [address] [place] [address] PCP - General Family Medicine 05/19/21 documented as of this encounter
--- OUTSIDE RECORDS SUMMARY | 2024-11-06 16:46 | XMS_ITS | Encounter Summary ---
Author Organization [employer] Address [address] [facility] 7t [place] [address] Care Team Providers Care Staffing Clerk Name Role Phone Anna Tineo MD Primary Care Provider [phone] Encounter Details Date Type Department Care Team (Late st Contact Info) Description 11/02/2024 Orders Only [facility] [address] [place] [address] Provider, MD Arnulfo Social History Tobacco Use [...] 3:30 PM EDT Office Visit [facility] MED & PEDS [address] [place] [address] Anna Tineo MD [address] [place] [address] 11/26/2024 9:15 AM EDT Office Visit [facility] MED & PEDS [address] [place] [address] Anna Tineo MD [address] [place] [address] documented as of this encounter Procedures Procedure Name Priority Date/Time Associated Diagnosis Comments ECG 12-LEAD Routine 11/01/2024 10:[address] ABDOMEN PELVIS W CONTRAST Routine 11/01/2024 10:[address] CHEST ANGIO W AND WO IV CONTRAST Routine 11/01/2024 10:16 AM EDT documented in this encounter Results * ECG 12 lead (11/01/2024 10:47 AM EDT) us Historical Provider ECG ORDERABLES Final Res ult * CT Abdomen Pelvis w/ Contrast (11/01/2024 10:19 AM EDT) Anatomical Region Laterality Modality Body, Pelvis, Abdomen Computed T omography Historical Provider IMG CT PROCEDURES Final R esult * CT CHEST ANGIO W AND WO IV CONTRAST (11/01/2024 10:16 AM EDT) Anatomical Region Laterality Modality Computed Tomogra phy us Historical Provider MD CALVILLO CT PROCEDURES Final R esult documented in this encounter Visit Diagnoses Not on filedocumented in this encounter Additional Health Concerns Assessment Noted Time PHQ-9 Depression Total Score: 4 03/14/20 24 11:37 AM EDT documented as of this encounter Care Teams Staffing Clerk Relationship Specialty Start Date End Date Anna Tineo MD [address] [place] [address] PCP - General Family Medicine 05/19/21 documented as of this encounter
--- OUTSIDE RECORDS SUMMARY | 2024-11-06 16:46 | XMS_ITS | Encounter Summary ---
Author Organization [employer] Address [address] [facility] 7[address] [place] [address] Care Team Providers Care Corner Block Cutter Name Role Phone Anna Tineo MD Primary Care Provider [phone] Encounter Details Date Type Department Care Team ([facility] st Contact Info) Description 11/01/2024 Orders Only [facility] [address] [place], [place] [phone] Tea Curry MD [address] [place] [address] Acute non-recurrent maxillary sinusitis (Primary Dx) Social [...] Description 11/19/2024 3:30 PM EDT Office Visit [facility] [address] [place] [address] Anna Tineo MD [address] [place] [address] 11/26/2024 9:15 AM EDT Office Visit [facility] [address] [place] [address] Anna Tineo MD [address] [place] [address] documented as of this encounter Visit Diagnoses Diagnosis Acute non-recurrent maxillary sinusitis- Primary documented in this encounter Additional Health Concerns Assessment Noted Time PHQ-9 Depression Total Score: 4 03/14/20 24 11:37 AM EDT documented as of this encounter Care Teams Corner Block Cutter Relationship Specialty Start Date End Date Anna Tineo MD [address] [place] [address] PCP - General Family Medicine 05/19/21 documented as of this encounter
--- OUTSIDE RECORDS SUMMARY | 2024-11-06 16:46 | XMS_ITS | Clinical Summary ---
Author Organization [employer] Address [address] [facility] 7[address] [place] [address] Care Team Providers Care Certified Nursing Attendant Name Role Phone Anna Tineo MD Primary Care Provider [phone] Allergies Active Allergy Reactions Criticality Noted Date [...] needed for wheezing. 18 g 5 Active predniSONE (Deltasone) 10 MG tabletIndicatio ns:Chest [...] after 20 capsule 5 11/12/19 25 Active amoxicillin-cla vulanate (Augmentin) 875-125 MG tabletIndicatio ns:Acute non-recurrent maxillary sinusitis Take 1 tablet by mouth 2 times daily for 10 days. 20 tablet 5 11/02/19 25 predniSONE (Deltasone) 20 MG tabletIndicatio ns:Acute non-recurrent [...] Encounters Date Type Department Care Team Description 11/06/2024 3:45 PM EDT Office Visit [facility] [address] [place] [address] Tea Curry MD Acute non-recurrent maxillary sinusitis (Primary Dx) 11/06/2024 Travel 11/02/2024 Orders Only [facility] [address] [place] [address] ProviderArnulfo MD 11/01/2024 10:30 AM EDT Office Visit [facility] [address] [place] [address] Tea Curry MD Chest tightness (Primary Dx) 11/01/2024 Telephone [facility] [address] [place] [address] Anna Tineo MD 11/01/2024 Telephone [facility] PEDIATR[facility] [address] [place] [address] Tea Curry MD Critical lab 11/01/2024 Results Follow-Up [facility] [address] [place] [address] Coleen Hopper, OLESYA CBC auto differential 11/01/2024 Orders Only [facility] [address] [place] [address] Tea Curry MD Acute non-recurrent maxillary sinusitis (Primary Dx) 11/01/2024 Travel 11/01/2024 Telephone [facility] MEDICINE [address] [place] [phone] Anna Tineo MD 10/25/2024 Telephone [facility] [address] [place] [address] Tea Curry MD Results 10/22/2024 2:20 PM EDT Office Visit [facility] [address] [place] [address] Tea Curry MD Acute non-recurrent maxillary sinusitis (Primary Dx); Chest tightness 10/22/2024 Travel 10/22/2024 Telephone [facility] MEDICINE [address] [place] [phone] Latoya Roldan RN 08/30/2024 Refill [facility] [address] [place] [address] Anna Tineo MD 08/28/2024 Refill [facility] [address] [place] [address] Anna Tineo MD from Last 3 Months [...] Mass Index 33.84 11/06/2024 3:45 PM EDT Plan of Treatment Upcoming Encounters Date Type Department Care Team (Late st Contact Info) Description 11/19/2024 3:30 PM EDT Office Visit [facility] [address] [place] [address] Anna Tineo MD [address] [place] [address] 11/26/2024 9:15 AM EDT Office Visit [facility] [address] [place] [address] Anna Tineo MD [address] [place] [address] Health Maintenance Due Date Last Done Comments [...] Routine 11/01/2024 11:24 AM EDT Chest tightness ECG 12-LEAD Routine 11/01/2024 10:[address] ABDOMEN PELVIS W CONTRAST Routine 11/01/2024 10:[address] CHEST ANGIO W AND WO IV CONTRAST Routine 11/01/2024 10:16 AM EDT XR CHEST 2 VIEWS Routine 10/23/2024 Acute [...] Recently Relevant to Health Maintenance Results * D Dimer High Sensitivity (11/01/2024 11:24 AM EDT) Pathologist [facility] D Dimer High Sensitivity 486 NG/ML [facility] Comment:Results of D DIMER c alled [...] Curry MD LAB BLOOD ORDERABLES Final Result [facility] [address] [place] [phone] * (ABNORMAL) CBC auto differential (11/01/2024 11:24 AM EDT) Pathologist [facility] White Blood Count 11.0(H) 4.8 - 10.8 X10*3/uL [facility] Red Blood Count 4.28 4.20 - 5.50 X10*6/uL [facility] Hemoglobin 12.4 12.0 - 16.0 g/dl [facility] Hematocrit 36.1(L) 37.0 - 47.0 % [facility] Mean Corpuscular Volume 84.3 80.0 - 98.0 fL [facility] Mean Corpuscular Hemoglobin 29.0 27.0 - 33.0 pg [facility] Mean Corpuscular HGB Conc 34.3 31.0 - 35.0 g/dl [facility] Red Cell Distribution Width 13.2 11.0 - 16.0 % [facility] Platelet Count 340 160 - 400 X10*3/uL [facility] Mean Platelet Volume 10.9 9.4 - 12.3 fL [facility] Neutrophils Percent Auto 67.8 45 - 73 % [facility] Imm Gran Pct Auto 0.8(H) 0.0 - 0.4 % [facility] Lymphocytes Percent Auto 19.2(L) 20 - 40 % [facility] Monocytes Percent Auto 8.7 2 - 11 % [facility] Eosinophils Percent Auto 2.6 0 - 4 % [facility] Basophils Percent Auto 0.9 0 - 2 % [facility] NRBC Pct Auto 0.0 0.0 - 0.2 /100WBC [facility] Neutrophils Absolute Auto 7.4 2.0 - 8.3 x10*3/uL [facility] Imm Gran Abs Auto 0.09(H) 0.00 - 0.03 X10*3/uL [facility] Lymphocytes Absolute Auto 2.1 1.2 - 4.9 X10*3/uL [facility] Monocytes Absolute Auto 1.0 0.1 - 1.2 X10*3/uL [facility] Eosinophils Absolute Auto 0.3 0.0 - 0.4 X10*3/uL [facility] Basophils Absolute Auto 0.1 0.0 - 0.2 X10*3/uL [facility] NRBC Abs Auto 0.000 0.0 - 0.012 X10*3/uL [facility] Blood Venous blood specimen / Unknown 11/01/2024 11:24 AM EDT 11/01/2024 12:05 PM EDT us Tea Curry MD LAB BLOOD ORDERABLES Final Result Performing Organization Address [facility] Co de Phone Number [facility] [address] [place] [phone] * (ABNORMAL) Basic Metabolic Panel (11/01/2024 11:24 AM EDT) Sodium 142 135 - 145 mmol/L [facility] Potassium 4.3 3.3 - 5.1 mmol/L [facility] Chloride 106 96 - 108 mmol/L [facility] Carbon Dioxide 23 22 - 29 mmol/L [facility] Anion Gap 17 12 - 20 [facility] Urea Nitrogen (BUN) 18(H) 9 - 16 mg/dL [facility] Creatinine, Serum 0.81 0.5 - 1.4 mg/dL [facility] Estimated Glomerular Filt Rate >60 [facility] Comment:Chronic Kidney Disea se: Estimated GFR < 60 mL/min/1.68v6Wmraai Kidney Disease: Estimated GFR < 15 mL/min/1.73m2 Glucose 100 60 - 115 mg/dL [facility] Calcium 9.8 8.4 - 10.2 mg/dL [facility] Blood Venous blood specimen / Unknown 11/01/2024 11:24 AM EDT 11/01/2024 12:05 PM EDT us Tea Curry MD LAB BLOOD ORDERABLES Final Result Performing Organization Address [facility]/ZIP Co de Phone Number [facility] [address] [place] [address] [phone] * ECG 12 lead (11/01/2024 10:47 AM [...] Anatomical Region Laterality Modality Computed Tomogra phy Historical Provider MD IMG CT PROCEDURES Final R esult * XR Chest 2 Views (10/23/2024) Anatomical Region Laterality Modality Chest Radiographic Elizabeth ging Tea Curry MD IMG XR PROCEDURES Final Res ult * POCT Rapid Influenza B OSOM (10/22/2024 2:55 PM EDT) [facility] Rapid Influenza B Ag Negative Negative, Indeterminate QC Media Lot # [id number] Lot# Expiration Date Swab 10/22/2024 2:55 PM EDT Result [facility] Tea Curry MD POINT OF CARE TEST ENTER/ED IT ORDERABLES Final Result * POCT Rapid Covid-19 BinaxNOW (10/22/2024 2:50 PM EDT) [facility] Rapid COVID Ag Negative QC Media Lot # [id number] Lot# Expiration Date ,026 Swab 10/22/2024 2:50 PM EDT Result [facility] Tea Curry MD POINT OF CARE TEST ENTER/ED IT ORDERABLES Final Result * POCT Rapid Influenza A OSOM (10/22/2024 2:50 PM EDT) [facility] Rapid Influenza A Ag Negative Negative, Indeterminate QC Media Lot # [id number] Lot# Expiration Date ,025 Swab Nasopharyngeal structure / Unknown 10/22/2024 2:50 PM EDT Result [facility] Tea Curry MD POINT OF CARE TEST ENTER/ED IT ORDERABLES Final Result * ThinPrep Imaging Pap and HPV mRNA E6/E7 (04/17/2024 9:50 AM EDT) HPV nRNA E6/E7 Not Detected Not Detected [facility] Comment:Methodology: Transcr iption-Mediated AmplificationThis assay detects E6/E7 viral messenger RNA (mRNA) from 14high-risk HPV types (16,18,31,33,35,39,45,51,52,56,58,59,66,68).Cervical sources are required for HPV testing.If a vaginal source from a patient who has had atotal hysterectomy with removal of cervix wassubmitted, please contact the testing laboratoryfor alternative testing options.For additional information, please refer [email or web address]/faq/[email or web address](This link if provided for information/educational purposes only.)THIS TEST WAS PERFORMED AT:[facility] [address] [id number] HAYS MD SOURCE: SEE NOTE [facility] Comment:Cervix Report Status: [facility] Clinical Information: SEE NOTE [facility] Comment:None given LMP: SEE NOTE [facility] Comment:NONE GIVEN Prev. PAP: SEE NOTE [facility] Comment:NONE GIVEN Prev. BX: SEE NOTE [facility] Comment:NONE GIVEN Statement Of Adequacy: SEE NOTE [facility] Comment:SATISFACTORY FOR SHALONDA LUATION General Categorization: [facility] Interpretation/Result: SEE NOTE [facility] Comment:Cytology Results: Ne gative for intraepitheliallesion or malignancy.Atrophic pattern; predominantly parabasal cells Cytology Comment SEE NOTE [facility] Comment:This Pap test has be en evaluated with computerassisted technology. Shuttle Filler: SEE NOTE [facility] Comment:MRC, CT(ASCP) CT scr eening location: [address] [address] Review Shuttle Filler: [facility] Pathologist [facility] PAP Infection [facility] See Note SEE NOTE [facility] Comment:EXPLANATORY NOTE:The Pap is a screening test for cervical cancer. It isnot a diagnostic test and is subject to false negativeand false positive results. It is most reliable when asatisfactory sample, regularly obtained, is submittedwith relevant clinical findings and history, and whenthe Pap result is evaluated along with historic andcurrent clinical information. 04/17/2024 9:50 AM EDT 04/17/2024 3:06 PM EDT Narrative [facility] - 04/23/2024 12:27 PM EST SEE SCANNED RESULTS IN EMRCERVIX us Anna Tineo MD LAB PATHOLOGY ORDERABLES Nidhi l Result [facility] [address] [place] [phone] [phone] * Hm Mammography (08/08/2023 9:23 AM EST) Anatomical Region Laterality Modality Other us Historical Provider MD HEALTH MAINTENANCE Final Result * Lipid Panel, Standard (08/05/2023 9:29 AM EST) Triglycerides 82 <150 mg/dL [facility] Comment:Desirable Triglyceri de: less than 150 mg/dLBorderline High Triglyceride 150-199 mg/dLHigh Triglyceride: 200-499 mg/dLVery High Triglyceride: greater than or equal to 5OO mg/dL Cholesterol 143 <200 mg/dL [facility] Comment:Desirable Cholestero l: less than 200 mg/dLBorderline High Cholesterol: 200-239 mg/dLHigh Cholesterol: greater than 239 mg/dL LDL Cholesterol Calculated 71 <100 mg/dL [facility] Comment:Desirable LDL: less than 100 mg/dLNear Optimal/Above Optimal LDL: 110- 129 mg/dLBorderline High LDL: 130-159 mg/dLHigh LDL: 160-189 mg/dLVery High LDL: greater than or equal to 190 mg/dL HDL Cholesterol 56 >40 mg/dL [facility] Comment:Desirable HDL: great er than 40 mg/dL Note: This HDL assay may give artificially low results in patients with liver disease. Blood Venous blood specimen / Unknown 08/05/2023 9:29 AM EST 08/05/2023 12:30 PM EST Anna Tineo MD LAB BLOOD ORDERABLES Final Re sult [facility] [address] [place] [address] [phone] from Last 3 Months or Most Recently Relevant to Health Maintenance Insurance [place] [facility] Care Teams Certified Nursing Attendant Relationship Specialty Start Date End Date Anna Tineo MD [address] [place] [phone] PCP - General Family Medicine 05/19/21
--- OUTSIDE RECORDS SUMMARY | 2024-11-06 16:46 | XMS_ITS | Clinical Summary ---
Author Organization [facility] Address [address] [place] [address] Phone Care Team Providers Care Operations And Intelligence Assistant Name Role Phone Anna Tineo MD Primary Care Provider [phone] Allergies Active Allergy Reactions Criticality Noted Date [...] 1 (one) time each day. 9 Active metroNIDAZOLE (FLAGYL) 500 mg tablet Take 1 tablet (500 mg total) by mouth 3 (three) times a day for 10 days. Do not use mouth wash or consume alcohol until 48 hours after last dose 30 each 5 11/12/19 25 Active ciprofloxacin (CIPRO) 500 mg tablet Take 1 tablet (500 mg total) by mouth 2 (two) times a day for 10 days. 20 each 5 11/12/19 25 Active saccharomyces boulardii (FLORASTOR) 250 mg capsule Take 1 capsule (250 mg total) by mouth 2 (two) times a day for 10 days. 20 capsule 5 11/12/19 25 Active Active Problems Problem Noted Date Diagnosed [...] Date Type Department Care Team Description 11/01/2024 3:19 PM EDT - 11/02/2024 12:11 AM EDT Emergency [facility] Emergency [address] [place] [address] Uriel Donovan MD Shortness of breath (Primary Dx); Elevated d-dimer; Diverticulitis Discharge Disposition: Home or Self Care 10/23/2024 12:02 PM EDT - 10/23/2024 11:59 PM EDT Hospital Encounter [facility] Xray [address] [place] [id number] Acute maxillary sinusitis, unspecified; Other chest pain [...] 43 Atypical endocervical cells on Pap smear DX:Atypical endocervical cells on Pap smear; COMMENT: [...] Mass Index 32.92 11/01/2024 1:25 PM EDT Plan of Treatment Health Maintenance Due Date Last Done Comments Breast Cancer Screening 1960 Pneumococcal Vaccine: 50+ Years (1 of 1 - PCV) 10/06/2009 Zoster Vaccines (2 of 2) 08/24/2018 06/29/2018 Medicare Annual Wellness Visit 05/23/2022 Osteoporosis Screening (Bone Density Screening) 05/23/2022 Social Influencers of Health Screening 05/23/2022 Cervical Cancer Screening: Pap Smear 03/14/2023 03/14/2020 COVID-19 Vaccine ( season) 2024 09/27/2020, 09/06/2020 Falls Risk Assessment 10/06/2024 Influenza Vaccine (Season Ended) 2025 Depression Screening 03/14/2025 03/14/2024 Colorectal Cancer Screening: Colonoscopy 06/06/2025 06/06/2015 Hypertension/CHF/CAD Annual BMP Blood Test 11/01/2025 11/01/2024, 11/01/2024, 05/04/2024, Additional history exists DTaP,Tdap,and Td Vaccines (2 - Td or [...] 64 Years) Aged Out No longer eligible based on patient's age to complete this topic RSV Immunization Patients Under 20 months Aged Out No longer eligible based on [...] 11/01/2024 5:04 PM EDT Elevated d-dimer CT ANGIO CHEST WO AND/OR W CONTRAST STAT 11/01/2024 4:46 PM EDT Shortness of breath CT ABDOMEN PELVIS W CONTRAST STAT 11/01/2024 4:46 PM EDT B-TYPE NATRIURETIC PEPTIDE STAT 11/01/2024 3:49 PM EDT TROPONIN I HIGH SENSITIVITY STAT 11/01/2024 3:49 PM EDT CBC WITH AUTO DIFFERENTIAL STAT 11/01/2024 2:43 PM EDT ACTIVATED PARTIAL THROMBOPLASTIN TIME STAT 11/01/2024 2:43 PM EDT COMPREHENSIVE METABOLIC PANEL STAT 11/01/2024 2:43 PM EDT CBC AND DIFFERENTIAL STAT 11/01/2024 2:43 PM EDT ECG 12-LEAD STAT 11/01/2024 2:38 PM EDT XR CHEST 2 VIEWS Routine 10/23/2024 12:3 1 PM EDT Acute maxillary sinusitis, unspecified Other chest pain LIPID PANEL Routine 11/20/2020 HM PAP SMEAR Routine 03/14/2020 HM HEPATITIS C SCREENING Routine 12/01/2017 HM COLONOSCOPY Routine 06/06/2015 from Last 3 Months or Most Recently Relevant to Health Maintenance Results * ECG-Annotated (11/02/2024) us Provider Onbase ECG ORDERABLES Final Result * Lactate (11/01/2024 9:16 PM EDT) [facility] Lactate 1.7 0.4 - 2.0 mmol/L LAB CHEMISTRY METHOD 11/01/2024 10:[address] [facility] Blood Venous blood specimen / Unknown Venipuncture / Unknown 11/01/2024 9:16 PM EDT 11/01/2024 9:30 PM EDT Uriel Donovan MD LAB BLOOD ORDERABLES Final Resu lt [facility] [address] [place] [address], * Respiratory virus panel molecular study (11/01/2024 8:03 PM EDT) [facility] Adenovirus Detection by PCR Not Detected Not Detected LAB MICROBIOLOGY METHOD 11/01/2024 8:[address] [facility] Influenza A PCR Not Detected Not Detected LAB MICROBIOLOGY METHOD 11/01/2024 8:[address] [facility] Influenza B PCR Not Detected Not Detected LAB MICROBIOLOGY METHOD 11/01/2024 8:[address] [facility] Coronavirus 229E Not Detected Not Detected LAB MICROBIOLOGY METHOD 11/01/2024 8:[address] [facility] Coronavirus HKU1 Not Detected Not Detected LAB MICROBIOLOGY METHOD 11/01/2024 8:[address] [facility] Coronavirus OC43 Not Detected Not Detected LAB MICROBIOLOGY METHOD 11/01/2024 8:[address] [facility] Coronavirus NL63 Not Detected Not Detected LAB MICROBIOLOGY METHOD 11/01/2024 8:[address] [facility] Parainfluenza Virus 1 Not Detected Not Detected LAB MICROBIOLOGY METHOD 11/01/2024 8:[address] [facility] Parainfluenza Virus 2 Not Detected Not Detected LAB MICROBIOLOGY METHOD 11/01/2024 8:[address] [facility] Parainfluenza Virus 3 Not Detected Not Detected LAB MICROBIOLOGY METHOD 11/01/2024 8:[address] [facility] Parainfluenza Virus 4 Not Detected Not Detected LAB MICROBIOLOGY METHOD 11/01/2024 8:[address] [facility] RSV PCR Not Detected Not Detected LAB MICROBIOLOGY METHOD 11/01/2024 8:[address] [facility] Human Metapneumovirus A and B Not Detected Not Detected LAB MICROBIOLOGY METHOD 11/01/2024 8:[address] [facility] Rhinovirus/Entero virus Not Detected Not Detected LAB MICROBIOLOGY METHOD 11/01/2024 8:[address] [facility] Bordetella pertussis Not Detected Not Detected LAB MICROBIOLOGY METHOD 11/01/2024 8:[address] [facility] Bordetella parapertussis Not Detected Not Detected LAB MICROBIOLOGY METHOD 11/01/2024 8:[address] [facility] Mycoplasma pneumo by PCR Not Detected Not Detected LAB MICROBIOLOGY METHOD 11/01/2024 8:[address] [facility] Chlamydia pneumoniae Not Detected Not Detected LAB MICROBIOLOGY METHOD 11/01/2024 8:[address] [facility] SARS COV-2 Not Detected Not Detected LAB MICROBIOLOGY METHOD 11/01/2024 8:[address] [facility] Swab Both anterior nares / Unknown Non-blood Collection / Unknown 11/01/2024 8:03 PM EDT 11/01/2024 8:[address] [facility] - 11/01/2024 8:59 PM EDT Testing was performed using the [employer] Respiratory Pathogen PCR Assay. All results must [...] detection. Uriel Donovan MD LAB MICROBIOLOGY - [facility] Final Result [facility] [address] [place] [address], * Vascular US Duplex Lower Extremity Venous Bilateral (11/01/2024 5:04 PM EDT) Anatomical Region Laterality Modality Vascular, Abdomen Ultrasound 11/01/2024 5:12 PM EDT Impressions 11/01/2024 5:13 PM EDT NO RIGHT OR LEFT LOWER EXTREMITY DEEP VENOUS THROMBOSIS. -------- FINAL REPORT -------- Dictated By: DANE GAMINO Dictated Date: 11/01/2024 17:12 ET Assigned Physician: DANE GAMINO Reviewed and Electronically Signed By: DANE GAMINO Signed Date: 11/01/2024 17:13 ET Workstation ID: [id number] Transcribed By: Self Edit Transcribed Date: 11/01/2024 [...] ??Visualized calf veins are patent. Procedure Note Dane Gamino MD - 11/01/2024 PROCEDURE: VAS US [...] THROMBOSIS. -------- FINAL REPORT -------- Dictated By: DANE GAMINO Dictated Date: 11/01/2024 17:12 ET Assigned Physician: DANE GAMINO Reviewed and Electronically Signed By: DANE GAMINO Signed Date: 11/01/2024 17:13 ET Workstation ID: [id number] Transcribed By: Self Edit Transcribed Date: 11/01/2024 17:12 ET Uriel Donovan MD CV VASCULAR PROCEDURES Final Re sult * [...] Signed Date: 11/01/2024 16:57 ET Workstation ID: [id number] Transcribed By: Self Edit Transcribed Date: 11/01/2024 [...] Signed Date: 11/01/2024 16:57 ET Workstation ID: [id number] Transcribed By: Self Edit Transcribed Date: 11/01/2024 [...] Signed Date: 11/01/2024 16:54 ET Workstation ID: [id number] Transcribed By: Self Edit Transcribed Date: 11/01/2024 [...] by the technologist on an independent workstation. MedRunnerT dose reduction utilizing iterative reconstruction. Total exam [...] obtained by the technologist on anindependent workstation. Pneuron VCT dose reduction utilizing iterative reconstruction. Total [...] Signed Date: 11/01/2024 16:54 ET Workstation ID: [id number] Transcribed By: Self Edit Transcribed Date: 11/01/2024 16:51 ET Uriel Donovan MD IM CT PROCEDURES Final Result * Troponin I high sensitivity (11/01/2024 3:49 PM EDT) High Sensitivity Troponin I 3 <=54 ng/L LAB CHEMISTRY METHOD 11/01/2024 4:[address] [facility] Blood Venous blood specimen / Unknown Venipuncture / Unknown 11/01/2024 3:49 PM EDT 11/01/2024 3:[address] [facility] - 11/01/2024 4:41 PM EDT High levels of biotin in samples may falsely decrease hsTroponin values. ??Use caution when interpreting hsTroponin results in patients taking biotin who exhibit renal impairment (eGFR <60) or in patients taking more than 20 mg/day of biotin. Uriel Donovan MD LAB BLOOD ORDERABLES Final Resu lt [facility] [address] [place] [address], [place] [phone] * B-type natriuretic peptide (11/01/2024 3:49 PM EDT) Pathologist [facility] BNP 10 <=100 pcg/mL LAB CHEMISTRY METHOD 11/01/2024 4:[address] [facility] Blood Venous blood specimen / Unknown Venipuncture / Unknown 11/01/2024 3:49 PM EDT 11/01/2024 3:54 PM EDT Uriel Abdirizak Donovan MD LAB BLOOD ORDERABLES Final Resu lt Performing Organization Address City/[facility]/ZIP Co de Phone Number [facility] [address] [place] [address], [place] [phone] * (ABNORMAL) CBC auto differential (11/01/2024 2:43 PM EDT) WBC 10.8 4.8 - 10.8 K/mcL LAB HEMETOLOGY METHOD 11/01/2024 3:[address] [facility] RBC 4.30 3.80 - 4.80 M/mcL LAB HEMETOLOGY METHOD 11/01/2024 3:[address] [facility] Hemoglobin 12.4 11.5 - 16.0 g/dL LAB HEMETOLOGY METHOD 11/01/2024 3:[address] [facility] Hematocrit 37.4 35.0 - 47.0 % LAB HEMETOLOGY METHOD 11/01/2024 3:[address] [facility] MCV 86.6 79.0 - 98.0 FL LAB HEMETOLOGY METHOD 11/01/2024 3:[address] [facility] MCH 28.7 27.0 - 32.0 pcg LAB HEMETOLOGY METHOD 11/01/2024 3:[address] [facility] MCHC 33.2 32.0 - 37.0 g/dL LAB HEMETOLOGY METHOD 11/01/2024 3:[address] [facility] RDW 13.2 11.0 - 15.0 % LAB HEMETOLOGY METHOD 11/01/2024 3:[address] [facility] Platelets 347 130 - 400 K/mcL LAB HEMETOLOGY METHOD [facility]24 [facility] MPV 10.9 7.0 - 11.0 FL LAB HEMETOLOGY METHOD 11/01/2024 3:[address] [facility] NRBC 0.0 <1.0 % LAB HEMETOLOGY METHOD 11/01[facility]2024 3[facility] NRBC Absolute 0.00 <0.10 K/mcL LAB HEMETOLOGY METHOD 11/01/2024 3[facility] Neutrophils Relative 64.2 % LAB HEMETOLOGY METHOD 11/01/2024 3:[address] [facility] Lymphocytes Relative 22.1 % LAB HEMETOLOGY METHOD 11/01/2024 3:[address] [facility] Monocytes Relative 9.3 % LAB HEMETOLOGY METHOD 11/01/2024 3:[facility] Eosinophils Relative 2.7 % LAB HEMETOLOGY METHOD 11/01/2024 3:[facility] Basophils Relative 0.9 % LAB HEMETOLOGY METHOD 11/01/2024 3:[address] [facility] Immature Granulocytes Relative 0.8 % LAB HEMETOLOGY METHOD 11/01/2024 3:[address] [facility] Neutrophils Absolute 6.91 1.50 - 7.00 K/mcL LAB HEMETOLOGY METHOD 11/01/2024 3:[address] [facility] Lymphocytes Absolute 2.38 1.00 - 5.00 K/mcL LAB HEMETOLOGY METHOD 11/01/2024 3:[address] [facility] Monocytes Absolute 1.00 0.20 - 1.00 K/mcL LAB HEMETOLOGY METHOD 11/01/2024 3:[address] [facility] Eosinophils Absolute 0.29 0.00 - 0.50 K/mcL LAB HEMETOLOGY METHOD 11/01/2024 3:[address] [facility] Basophils Absolute 0.10 0.00 - 0.20 K/mcL LAB HEMETOLOGY METHOD 11/01/2024 3:[address] [facility] Immature Granulocytes Absolute 0.09(H) 0.00 - 0.03 K/mcL LAB HEMETOLOGY METHOD 11/01/2024 3:[address] [facility] Blood Venous blood specimen / Unknown Venipuncture / Unknown 11/01/2024 2:43 PM EDT 11/01/2024 3:04 PM EDT us Yao Vargas DO LAB BLOOD ORDERABLES Final Result [facility] [address] [place] [address], * APTT (11/01/2024 2:43 PM EDT) aPTT 31.1 24.1 - 39.3 sec LAB COAGULATION METHOD 11/01/2024 3:[address] [facility] Blood Venous blood specimen / Unknown Venipuncture / Unknown 11/01/2024 2:43 PM EDT 11/01/2024 3:04 PM EDT Yao Sharda Vargas DO LAB BLOOD ORDERABLES Final Result [facility] [address] [place] [address], [place] [phone] * (ABNORMAL) Comprehensive metabolic panel (11/01/2024 2:43 PM EDT) Sodium 138 133 - 145 mmol/L LAB CHEMISTRY METHOD 11/01/2024 3:32 PM [facility] Potassium 5.2 3.5 - 5.5 mmol/L LAB CHEMISTRY METHOD 11/01/2024 3:32 PM [facility] Chloride 106 96 - 110 mmol/L LAB CHEMISTRY METHOD 11/01/2024 3:32 PM [facility] CO2 26 21 - 32 mmol/L LAB CHEMISTRY METHOD 11/01/2024 3:32 PM [facility] Anion Gap 6 3 - 11 LAB CHEMISTRY METHOD 11/01/2024 3:32 PM [facility] Glucose 99 70 - 100 [...] 17.4 LAB CHEMISTRY METHOD 11/01/2024 3:[address] [facility] Calcium 10.0 8.5 - 10.5 mg/dL LAB CHEMISTRY METHOD 11/01/2024 3:[address] [facility] AST (SGOT) 11 10 - 42 unit/L LAB CHEMISTRY METHOD 11/01/2024 3:[address] [facility] ALT (SGPT) 23 10 - 60 unit/L LAB CHEMISTRY METHOD 11/01/2024 3:[address] [facility] Alkaline Phosphatase 114 42 - 121 unit/L LAB CHEMISTRY METHOD 11/01/2024 3:[address] [facility] Total Protein 7.5 6.0 - 8.0 g/dL LAB CHEMISTRY METHOD 11/01/2024 3:[address] [facility] Albumin 4.0 3.2 - 5.0 g/dL LAB CHEMISTRY METHOD 11/01/2024 3:[address] [facility] Total Bilirubin 2.6(H) 0.0 - 1.4 mg/dL LAB CHEMISTRY METHOD 11/01/2024 3:[address] [facility] Blood Venous blood specimen / Unknown Venipuncture / Unknown 11/01/2024 2:43 PM EDT 11/01/2024 3:04 PM EDT us Yao Vargas DO LAB BLOOD ORDERABLES Final Result [facility] [address] [place] [address], * ECG 12 lead (11/01/2024 2:38 PM EDT) Ventricular Rate ECG 67 BPM GEMUSE Atrial Rate 67 BPM GEMUSE P-R Interval 186 ms GEMUSE QRS Duration 80 ms GEMUSE Q-T Interval 422 ms GEMUSE QTc 445 ms GEMUSE P Wave Mather 75 degrees GEMUSE R Mather 5 degrees GEMUSE T Mather 59 degrees GEMUSE ECG Interpretation Normal sinus rhythm Normal ECG When compared with ECG of 28-APR-2021 23:25, No significant change was found Confirmed by GERTRUDIS BRAY ([id number]) on 11/01/2024 8:53:50 PM GEMUSE 11/01/2024 2:38 PM EDT 11/01/2024 8:53 PM EDT us Yao Vargas DO ECG ORDERABLES Final Resul t GEM[facility] * XR Chest 2 Views (10/23/2024 12:31 [...] Signed Date: 10/23/2024 12:37 ET Workstation ID: [id number] Transcribed By: Self Edit Transcribed Date: 10/23/2024 [...] Signed Date: 10/23/2024 12:37 ET Workstation ID: [id number] Transcribed By: Self Edit Transcribed Date: 10/23/2024 12:37 ET Tea Curry MD IMG XR PROCEDURES Final R esult * Lipid panel (11/20/2020) [facility] LDL/HDL Ratio 2 0 - 4 Triglycerides 111 0 - 150 mg/dL Cholesterol 145 0 - 200 mg/dL HDL 63 >=40 mg/dL LDL Cholesterol 60 0 - 100 mg/dL Blood Venous blood specimen / Unknown Result [facility] Provider LAB BLOOD ORDERABLES Nidhi l Result * Pap Smear (03/14/2020) [facility] Pap smear abstracted, no interpretation Result [facility] Provider HEALTH MAINTENANCE Final Result * Hepatitis C Screening (12/01/2017) [facility] Hepatitis C Screening abstracted Result [facility] Provider HEALTH MAINTENANCE Final Result * Colonoscopy (06/06/2015) [facility] Colonoscopy abstracted, no interpretation Anatomical Region Laterality Modality Other Result [facility] Provider HEALTH MAINTENANCE Final Result from Last 3 Months or Most Recently Relevant to Health Maintenance Insurance [place] - [place] Care Teams Operations And Intelligence Assistant Relationship Specialty Start Date End Date Anna Tineo MD [address] [place] [phone] PCP - General 02/24/22
[2024-11-06 18:19] LABS: MANUAL DIFF FLAG NO
[2024-11-06 18:25] LABS: Basophils Percent Auto 0.4 % (0-2); Hematocrit 37.2 % (37.0-47.0); Hemoglobin 12.5 g/dl (12.0-16.0); Imm Gran Abs Auto 0.14 X10*3/uL (0.00-0.03); Imm Gran Pct Auto 1.3 % (0.0-0.4); Lymphocytes Percent Auto 9.5 % (20-40); Mean Corpuscular HGB Conc 33.6 g/dl (31.0-35.0); Mean Corpuscular Hemoglobin 28.7 pg (27.0-33.0); Mean Corpuscular Volume 85.3 fL (80.0-98.0); Mean Platelet Volume 11.4 fL (9.4-12.3); Monocytes Absolute Auto 0.8 X10*3/uL (0.1-1.2); Monocytes Percent Auto 7.8 % (2-11); Neutrophils Absolute Auto 8.8 x10*3/uL (2.0-8.3); Platelet Count 404 X10*3/uL (160-400); Red Blood Count 4.36 X10*6/uL (4.20-5.50); Red Cell Distribution Width 13.1 % (11.0-16.0); White Blood Count 10.8 X10*3/uL (4.8-10.8)
== END 2024-11-06 16:24 | disposition home or self-care (01) ==
LOC: HO.CHCLDS 16:23
PROVIDERS: Visit Provider Internal Medicine
DX: J01.00 Acute maxillary sinusitis, unspecified (principal)
CPT/HCPCS: 36415; 85025

== ENCOUNTER 2024-11-26 10:08 | Outpatient (REF) | payer MEDICARE, OTHER, SELFPAY ==
--- OUTSIDE RECORDS SUMMARY | 2024-11-26 11:12 | XMS_ITS | Encounter Summary ---
Author Organization [employer] Address [address] [facility] [facility] [address] [place] [address] Care Team Providers Care Fish Grader Name Role Phone Anna Tineo MD Primary Care Provider [phone] Encounter Details Date Type Department Care Team ([facility] st Contact Info) Description 04/17/2024 Orders Only [facility] [address] [place] [address] ProviderArnulfo MD Social History Tobacco Use Types [...] the past 12 months, has t he [employer], [place], oil or water [employer] threatened to shut off services in your [...] as of this encounter Plan of Treatment Not on file documented as of this encounter Procedures Procedure Name Priority Date/Time Associated Diagnosis Comments THINPREP IMAGING PAP AND HPV MRNA E6/E7 Routine 04/17/2024 9:50 AM EDT HM MAMMOGRAPHY Routine 08/08/2023 9:23 AM EST documented in this encounter Results * ThinPrep Imaging Pap and HPV mRNA E6/E7 (04/17/2024 9:50 AM EDT) HPV nRNA E6/E7 Not Detected Not Detected [facility] Comment:Methodology: Transcr iption-Mediated AmplificationThis assay detects E6/E7 viral messenger RNA (mRNA) from 14high-risk HPV types (16,18,31,33,35,39,45,51,52,56,58,59,66,68).Cervical sources are required for HPV testing.If a vaginal source from a patient who has had atotal hysterectomy with removal of cervix wassubmitted, please contact the testing laboratoryfor alternative testing options.For additional information, please refer [email or web address].Sensoraide/faq/LIG978k8(This link if provided for information/educational purposes only.)THIS TEST WAS PERFORMED AT:[employer] [place] [phone] HAYS MD SOURCE: SEE NOTE [facility] Comment:Cervix Report Status: TNP [facility] Clinical Information: SEE NOTE [facility] Comment:None given LMP: SEE NOTE [facility] Comment:NONE GIVEN Prev. PAP: SEE NOTE [facility] Comment:NONE GIVEN Prev. BX: SEE NOTE [facility] Comment:NONE GIVEN Statement Of Adequacy: SEE NOTE [facility] Comment:SATISFACTORY FOR SHALONDA MENCHACA General Categorization: [facility] Interpretation/Result: SEE NOTE [facility] Comment:Cytology Results: Ne gative for intraepitheliallesion or malignancy.Atrophic pattern; predominantly parabasal cells Cytology Comment SEE NOTE [facility] Comment:This Pap test has be en evaluated with computerassisted technology. Psychiatric Aide Instructor: SEE NOTE [facility] Comment:MRC, CT(ASCP) CT scr eening location: [place] [address] Review Psychiatric Aide Instructor: [facility] Pathologist [facility] PAP Infection [facility] See Note SEE NOTE [facility] Comment:EXPLANATORY NOTE:The Pap is a screening test for cervical cancer. It isnot a diagnostic test and is subject to false negativeand false positive results. It is most reliable when asatisfactory sample, regularly obtained, is submittedwith relevant clinical findings and history, and whenthe Pap result is evaluated along with historic andcurrent clinical information. 04/17/2024 9:50 AM EDT 04/17/2024 3:06 PM EDT Narrative [facility] - 04/23/2024 12:27 PM EST SEE SCANNED RESULTS IN EMRCERVIX us Anna Tineo MD LAB PATHOLOGY ORDERABLES Nidhi l Result Performing Organization Address City/State/[facility] Co de Phone Number [facility] [address] [place] [phone] * Hm Mammography (08/08/2023 9:23 AM EST) Anatomical Region Laterality Modality Other us Historical Provider HEALTH MAINTENANCE Final Result documented in this encounter Visit Diagnoses Not on filedocumented in this encounter Additional Health Concerns Assessment Noted Time PHQ-9 Depression Total Score: 4 03/14/20 24 11:37 AM EDT documented as of this encounter Care Teams Fish Grader Relationship Specialty Start Date End Date Anna Tineo MD [address] [place] [phone] PCP - General Family Medicine 05/19/21 documented as of this encounter
[2024-11-26 14:24] LABS: MANUAL DIFF FLAG NO
[2024-11-26 14:30] LABS: Basophils Absolute Auto 0.1 X10*3/uL (0.0-0.2); Basophils Percent Auto 1.6 % (0-2); Eosinophils Absolute Auto 0.2 X10*3/uL (0.0-0.4); Eosinophils Percent Auto 3.6 % (0-4); Hematocrit 35.5 % (37.0-47.0); Hemoglobin 11.9 g/dl (12.0-16.0); Imm Gran Abs Auto 0.04 X10*3/uL (0.00-0.03); Imm Gran Pct Auto 0.8 % (0.0-0.4); Lymphocytes Absolute Auto 1.8 X10*3/uL (1.2-4.9); Lymphocytes Percent Auto 36.1 % (20-40); Mean Corpuscular HGB Conc 33.5 g/dl (31.0-35.0); Mean Corpuscular Hemoglobin 28.9 pg (27.0-33.0); Mean Corpuscular Volume 86.2 fL (80.0-98.0); Mean Platelet Volume 11.4 fL (9.4-12.3); Monocytes Absolute Auto 0.6 X10*3/uL (0.1-1.2); Monocytes Percent Auto 11.4 % (2-11); Neutrophils Absolute Auto 2.3 x10*3/uL (2.0-8.3); Neutrophils Percent Auto 46.5 % (45-73); Platelet Count 319 X10*3/uL (160-400); Red Blood Count 4.12 X10*6/uL (4.20-5.50); Red Cell Distribution Width 13.2 % (11.0-16.0)
[2024-11-26 15:10] LABS: Alanine Aminotransferase 27 U/L (0-31); Albumin Level 4.4 g/dL (3.5-5.0); Alkaline Phosphatase 91 U/L (39-117); Anion Gap 14 (12-20); Aspartate Amino Transferase 30 U/L (5-31); Bilirubin Total 2.1 mg/dL (0.0-1.0); Blood Urea Nitrogen 15 mg/dL (9-16); Calcium 9.7 mg/dL (8.4-10.2); Carbon Dioxide 25 mmol/L (22-29); Chloride 108 mmol/L (96-108); Cholesterol 151 mg/dL (<200); Estimated Glomerular Filt Rate > 60; Glucose Random 97 mg/dL (60-115); HDL Cholesterol 56 mg/dL (>40); LDL Cholesterol Calculated 76 mg/dL (<100); Sodium 142 mmol/L (135-145); TSH reflex Free T4 0.89 uIU/mL (0.32-4.0); Total Protein 7.3 g/dL (6.5-8.0); Triglycerides 96 mg/dL (<150)
[2024-11-27 08:14] LABS: ~HepC Num1 0.11 S/CO (0.00-0.79); ~Hepatitis C Antibody Nonreactive (Nonreactive)
== END 2024-11-26 10:09 | disposition home or self-care (01) ==
LOC: HO.CHCLDS 10:08
PROVIDERS: Visit Provider Family Medicine
DX: E55.9 Vitamin D deficiency, unspecified (principal); E66.9 Obesity, unspecified
CPT/HCPCS: 36415; 80053; 80061; 82306; 84443; 85025; 86803

== ENCOUNTER 2024-11-28 09:23 | Outpatient (REF) | payer MEDICARE, OTHER, SELFPAY ==
--- OUTSIDE RECORDS SUMMARY | 2024-11-28 10:12 | XMS_ITS | Encounter Summary ---
Author Organization [employer] Address [address] [facility] 7t [place] [address] Care Team Providers Care Claim Investigator Name Role Phone Anna Tineo MD Primary Care Provider [phone] Encounter Details Date Type Department Care Team ([facility] st Contact Info) Description 04/17/2024 Orders Only [facility] CHC MED & PEDS [address] [place] [address] ProviderArnulfo MD Social History Tobacco Use Types [...] the past 12 months, has t he [employer], oil or water [employer] threatened to shut off services in your [...] HPV nRNA E6/E7 Not Detected Not Detected [facility] Comment:Methodology: Transcr iption-Mediated AmplificationThis assay detects E6/E7 viral messenger RNA (mRNA) from 14high-risk HPV types (16,18,31,33,35,39,45,51,52,56,58,59,66,68).Cervical sources are required for HPV testing.If a vaginal source from a patient who has had atotal hysterectomy with removal of cervix wassubmitted, please contact the testing laboratoryfor alternative testing options.For additional information, please refer tohttp://education.[employer]/faq/CSU731c1(This link if provided for information/educational purposes only.)THIS TEST WAS PERFORMED AT:[employer] [place] [phone] HAYS MD SOURCE: SEE NOTE [facility] Comment:Cervix Report Status: TNP [facility] Clinical Information: SEE NOTE [facility] Comment:None given LMP: SEE NOTE [facility] Comment:NONE GIVEN Prev. PAP: SEE NOTE [facility] Comment:NONE GIVEN Prev. BX: SEE NOTE [facility] Comment:NONE GIVEN Statement Of Adequacy: SEE NOTE [facility] Comment:SATISFACTORY FOR SHALONDA MENCHACA General Categorization: [facility] Interpretation/Result: SEE NOTE [facility] Comment:Cytology Results: Ne gative for intraepitheliallesion or malignancy.Atrophic pattern; predominantly parabasal cells Cytology Comment SEE NOTE [facility] Comment:This Pap test has be en evaluated with computerassisted technology. Solidworks Mechanical Designer: SEE NOTE [facility] Comment:MRC, CT(ASCP) CT scr eening location: [place] [address] Review Solidworks Mechanical Designer: [facility] Pathologist [facility] PAP Infection [facility] See Note SEE NOTE [facility] Comment:EXPLANATORY NOTE:The Pap is a screening test for cervical cancer. It isnot a diagnostic test and is subject to false negativeand false positive results. It is most reliable when asatisfactory sample, regularly obtained, is submittedwith relevant clinical findings and history, and whenthe Pap result is evaluated along with historic andcurrent clinical information. 04/17/2024 9:50 AM EDT 04/17/2024 3:06 PM EDT Narrative [facility] - 04/23/2024 12:27 PM EST SEE SCANNED RESULTS IN EMRCERVIX us Anna Tineo MD LAB PATHOLOGY ORDERABLES Nidhi l Result Performing Organization Address City/State/[facility] Co de Phone Number [facility] [address] [place] [phone] * Hm Mammography (08/08/2023 9:23 AM EST) Anatomical Region Laterality Modality Other us Historical Provider HEALTH MAINTENANCE Final Result documented in this encounter Visit Diagnoses Not on filedocumented in this encounter Additional Health Concerns Assessment Noted Time PHQ-9 Depression Total Score: 4 03/14/20 24 11:37 AM EDT documented as of this encounter Care Teams Claim Investigator Relationship Specialty Start Date End Date Anna Tineo MD [address] [place] [phone] PCP - General Family Medicine 05/19/21 documented as of this encounter
[2024-11-28 14:31] LABS: Immature Retic Fraction 11.6 % (3.0-15.9); Retic HGB Equivalent 32.6 pg (30.0-35.0); Reticulocyte Percent 1.7 % (0.5-1.8); Reticulocytes Absolute 0.071 X10*6/uL (0.026-0.095)
[2024-11-28 14:46] LABS: Alanine Aminotransferase 24 U/L (0-31); Albumin Level 4.3 g/dL (3.5-5.0); Alkaline Phosphatase 86 U/L (39-117); Aspartate Amino Transferase 24 U/L (5-31); Bilirubin Direct 0.4 mg/dL (0.0-0.5); Bilirubin Total 1.4 mg/dL (0.0-1.0); Total Protein 6.7 g/dL (6.5-8.0)
[2024-11-28 14:48] LABS: Haptoglobin 169 mg/dL (63-273)
[2024-11-28 16:28] LABS: Lactate Dehydrogenase 248 U/L (122-220)
== END 2024-11-28 09:24 | disposition home or self-care (01) ==
LOC: HO.CHCLDS 09:23
PROVIDERS: Visit Provider Family Medicine
DX: Z13.89 Encounter for screening for other disorder (principal)
CPT/HCPCS: 36415; 80076; 83010; 83615; 85045; 86880

== ENCOUNTER → 2024-12-25 14:46 | Outpatient (BNV) | payer MEDICARE, MEDICAID, SELFPAY | PROVIDERS: PCP Family Medicine; Referring Provider Family Medicine; Visit Provider Internal Medicine Medical Oncology | DX: E80.6 Other disorders of bilirubin metabolism (principal); D58.9 Hereditary hemolytic anemia, unspecified | CPT/HCPCS: 99204 ==

== ENCOUNTER 2025-04-08 14:26 | Outpatient (REF) | payer MEDICARE, MEDICAID, SELFPAY ==
--- OUTSIDE RECORDS SUMMARY | 2025-04-08 14:00 | XMS_ITS | Encounter Summary ---
Author Organization [employer] Address [address] [place] [address] 7 [place] [address] Care Team Providers Care Captain Assistant Name Role Phone Anna Tineo MD Primary Care Provider [phone] Encounter Details Date Type Department Care Team ([facility] st Contact Info) Description 04/08/2025 2:00 PM EDT Office Visit [facility] CHC MED & PEDS [address] [place], [place] [phone] Chelle James MD [address] [place] [address] Pain and swelling of knee, right (Primary Dx); Primary hypertension Social History Tobacco Use Types Packs/Day Years [...] your housing situation today? I have luisa sing 11/16/[address] you li ve. Do you have problems with any of the following? None of the above 11/16/2024 Food Insecurity Answer Date Recorded Within the past 12 months, y ou worried that your food would run out before you got money to buy more: Never True 11/16/2024 Within the past 12 months,th e food you bought just didn't last and you didn't have enough money to get more: Never True Transportation Answer Date Recorded In the past 12 months, has l ack of transportation kept you from medical appts, meetings, work or from getting things needed for daily living? No 11/16/2024 Utilities Answer Date Recorded In the past 12 months, has t he electric, gas, oil or water company threatened to shut off services in your home? No 11/16/2024 Depression Answer Date Recorded Patient Health Questionnaire-2 Score 1 03/14/2024 Internet Access Answer Date Recorded Internet Access Q1 Yes 11/16/2024 Internet Access Q2 Not on file 11/16/2024 Comments No Sex and Gender Information Value Date Recorded Sex Assigned at Female 04/19/2022 10:39 AM EDT Legal Sex Female 10:39 AM EDT Gender Identity Female 04/19/2022 10:39 AM EDT Sexual Orientation Choose not to disclose 2021 10:39 AM EDT documented as of this encounter Last Filed Vital Signs Vital Sign Reading Time Taken Comments Blood Pressure 120/67 04/08/2025 1:51 PM EDT Pulse 75 04/08/2025 1:51 PM EDT Temperature 36.8 C (98.2 F) 04/08/2025 1:51 PM EDT Respiratory Rate 20 04/08/2025 1:51 PM EDT Oxygen Saturation - - Inhaled Oxygen Concentration - - Weight 85.7 kg (189 lb) 04/08/2025 1:51 PM EDT Height - - Body Mass Index 34.57 11/26/2024 9:04 AM EDT documented in this encounter Progress Notes * Chelle James MD - 04/08/2025 2:00 PM EDT Subjective Patient ID: Ivonne Beasley is a 64 y.o. female who presents for R knee pain and swelling. Ivonne had knee xrays done in 2020 that showed mild DJD only.Pain worsening over years.Since last week, knee on Right is more swollen then ever and very painful.No trauma history. Had labs done in [id number] negative for JAGUAR etc.. Knee Pain The incident occurred more than 1 week ago. There was no injury mechanism. The pain is present in the right knee. The quality of the pain is described as aching. The pain is at a severity of 9/10. The pain is severe. The pain has been Constant since onset. Pertinent negatives include no inability to bear weight, numbness or tingling. Associated symptoms comments: Limping from pain, using knee brace. She reports no foreign bodies present. The symptoms are aggravated by movement, palpation and weight bearing. She has tried acetaminophen, heat, elevation, ice, immobilization, NSAIDs, non-weight bearing and rest for the symptoms. The treatment provided no relief. Review of Systems Constitutional: Negative for activity change, chills, fever and unexpected weight change. Respiratory: Negative for cough, shortness of breath and wheezing. Cardiovascular: Negative for chest pain, palpitations and leg swelling. Gastrointestinal: Negative for abdominal pain and blood in stool. Endocrine: Negative for polydipsia and polyuria. Genitourinary: Negative for decreased urine volume, difficulty urinating, dysuria and hematuria. Musculoskeletal: Positive for arthralgias, joint swelling and myalgias. Negative for gait problem. Skin: Negative for color change and rash. Neurological: Negative for dizziness, tingling, numbness and headaches. Hematological: Negative for adenopathy. Psychiatric/Behavioral: Negative for dysphoric mood, hallucinations, sleep disturbance and suicidalideas. The patient is not nervous/anxious. Objective BP 120/67 (BP Location: Left arm, Patient Position: Sitting, BP Cuff Size: Adult) Pulse75 Temp 98.2 ??F (36.8 ??C) (Oral) Resp 20 Wt 189 lb (85.7 kg) BMI 34.57 kg/m?? Physical Exam Constitutional: General: She is not in acute distress. Appearance: Normal appearance. She is not ill-appearing. HENT: Head: Normocephalic. Right Ear: Tympanic membrane and ear canal normal. Left Ear: Tympanic membrane and ear canal normal. Nose: Nose normal. Mouth/Throat: Mouth: Mucous membranes are moist. Pharynx: No oropharyngeal exudate or posterior oropharyngeal erythema. Eyes: Extraocular Movements: Extraocular movements intact. Conjunctiva/sclera: Conjunctivae normal. Pupils: Pupils are equal, round, and reactive to light. Cardiovascular: Rate and Rhythm: Normal rate and regular rhythm. Pulses: Normal pulses. Heart sounds: Normal heart sounds. Pulmonary: Effort: Pulmonary effort is normal. No respiratory distress. Breath sounds: Normal breath sounds. Abdominal: General: There is distension. Palpations: Abdomen is soft. Musculoskeletal: General: Swelling present. Cervical back: Normal range of motion. Right knee: Swelling, deformity and crepitus present. No erythema. Decreased range of motion. Tenderness present over the ACL and patellar tendon. Skin: General: Skin is warm. Capillary Refill: Capillary refill takes less than 2 seconds. Neurological: General: No focal deficit present. Mental Status: She is alert and oriented to person, place, and time. Psychiatric: Mood and Affect: Mood normal. Behavior: Behavior normal. Thought Content: Thought content normal. Judgment: Judgment normal. Assessment/Plan Diagnoses and all orders for this visit: Pain and swelling of knee, right Comments: Continue use of knee brace, new XRay of knee ordered.Last one from 2020 showed only MILD arthritis.Has recent leg US - x DVT.Ordered CBC,lyme test,uric acid ,sed rate,etc Call With results. Continue ibuprofen prn, added lidocaine cream etc.. Refer to ortho for knee injection after results reviewed. Orders: - CBC auto differential; Future - Uric acid; Future - Lyme Disease Ab with Reflex to Blot (IgG, IgM); Future - Sed Rate by Modified Westergren; Future - XR Knee 3 Views Right; Future Primary hypertension Comments: Very stable BP.States compliant with meds.Labs UTD.F/U with PCP scheduled. Other orders - lidocaine (LMX) 4 % cream; Apply topically if needed in the morning, at noon, in the evening, andat bedtime for moderate pain. documented in this encounter Plan of Treatment Upcoming Encounters Date Type Department Care Team (Late st Contact Info) Description 05/23/2025 2:30 PM EST Office Visit [facility] CHC MED & PEDS [address] [place] [address] Anna Tineo MD [address] [place] [address] Scheduled Orders Name Type Priority Associated Diagnoses Orde r Schedule CBC auto differential Lab Routine Pain and swelling of knee, right Expected: 04/08/2025 (Approximate), Expires: 04/08/2026 Uric acid Lab Routine Pain and swelling of knee, right Expected: 04/08/2025 (Approximate), Expires: 04/08/2026 Lyme Disease Ab with Reflex to Blot (IgG, IgM) Lab Routine Pain and swelling of knee, right Expected: 04/08/2025, Expires: 04/08/2026 Sed Rate by Modified Westergren Lab Routine Pain and swelling of knee, right Expected: 04/08/2025, Expires: 04/08/2026 XR Knee 3 Views Right Imaging Routine Pain and swelling of knee, right Expected: 04/08/2025, Expires: 04/08/2026 documented as of this encounter Visit Diagnoses Diagnosis Pain and swelling of knee, right- Primary Primary hypertension Unspecified essential hypertension documented in this encounter Additional Health Concerns Assessment Noted Time PHQ-9 Depression Total Score: 4 03/14/20 24 11:37 AM EDT documented as of this encounter Care Teams Captain Assistant Relationship Specialty Start Date End Date Anna Tineo MD [address] [place] [address] PCP - General Family Medicine 05/19/21 documented as of this encounter
--- OUTSIDE RECORDS SUMMARY | 2025-04-08 18:12 | XMS_ITS | Encounter Summary ---
Author Organization [employer] Address [address] [facility] 7t [place] [address] Care Team Providers Care Business Unit Leader Name Role Phone Anna Tineo MD Primary Care Provider [phone] Encounter Details Date Type Department Care Team ([facility] st Contact Info) Description 04/17/2024 Orders Only [facility] CHC MED & PEDS [address] [place] [address] ProviderArnulfo MD Social History Tobacco Use Types [...] the past 12 months, has t he [employer], [employer], oil or water [employer] threatened to shut off services in your [...] Description 05/23/2025 2:30 PM EST Office Visit [facility] CHC MED & PEDS [address] [place] [address] Anna Tineo MD [address] [place] [address] documented as of this encounter Procedures Procedure Name Priority Date/Time Associated Diagnosis Comments THINPREP IMAGING PAP AND HPV MRNA E6/E7 Routine 04/17/2024 9:50 AM EDT HM MAMMOGRAPHY Routine 08/08/2023 9:23 AM EST documented in this encounter Results * ThinPrep Imaging Pap and HPV mRNA E6/E7 (04/17/2024 9:50 AM EDT) HPV nRNA E6/E7 Not Detected Not Detected [facility] Comment:Methodology: Transcr iption-Mediated AmplificationThis assay detects E6/E7 viral messenger RNA (mRNA) from 14high-risk HPV types (16,18,31,33,35,39,45,51,52,56,58,59,66,68).Cervical sources are required for HPV testing.If a vaginal source from a patient who has had atotal hysterectomy with removal of cervix wassubmitted, please contact the testing laboratoryfor alternative testing options.For additional information, please refer tohttp://education.[employer]/faq/CNQ585y0(This link if provided for information/educational purposes only.)THIS TEST WAS PERFORMED AT:[employer] [facility] [place] [phone] HAYS MD SOURCE: SEE NOTE [facility] Comment:Cervix Report Status: [facility] Clinical Information: SEE NOTE [facility] Comment:None given LMP: SEE NOTE [facility] Comment:NONE GIVEN Prev. PAP: SEE NOTE [facility] Comment:NONE GIVEN Prev. BX: SEE NOTE [facility] Comment:NONE GIVEN Statement Of Adequacy: SEE NOTE [facility] Comment:SATISFACTORY FOR SHALONDA LUATION General Categorization: [facility] Interpretation/Result: SEE NOTE [facility] Comment:Cytology Results: Ne gative for intraepitheliallesion or malignancy.Atrophic pattern; predominantly parabasal cells Cytology Comment SEE NOTE [facility] Comment:This Pap test has be en evaluated with computerassisted technology. Security Strategist: SEE NOTE [facility] Comment:MRC, CT(ASCP) CT scr eening location: [place] [address] Review Security Strategist: [facility] Pathologist [facility] PAP Infection [facility] See Note SEE NOTE [facility] Comment:EXPLANATORY NOTE:The Pap is a screening test for cervical cancer. It isnot a diagnostic test and is subject to false negativeand false positive results. It is most reliable when asatisfactory sample, regularly obtained, is submittedwith relevant clinical findings and history, and whenthe Pap result is evaluated along with historic andcurrent clinical information. 04/17/2024 9:50 AM EDT 04/17/2024 3:06 PM EDT Narrative [facility] - 04/23/2024 12:27 PM EST SEE SCANNED RESULTS IN EMRCERVIX us Anna Tineo MD LAB PATHOLOGY ORDERABLES Nidhi mora Result [facility] [address] [place] [address] [phone] * Hm Mammography (08/08/2023 9:23 AM EST) Anatomical Region Laterality Modality Other us Historical Provider HEALTH MAINTENANCE Final Result documented in this encounter Visit Diagnoses Not on filedocumented in this encounter Additional Health Concerns Assessment Noted Time PHQ-9 Depression Total Score: 4 03/14/20 24 11:37 AM EDT documented as of this encounter Care Teams Business Unit Leader Relationship Specialty Start Date End Date Anna Tineo MD [address] [place] [address] PCP - General Family Medicine 05/19/21 documented as of this encounter
--- OUTSIDE RECORDS SUMMARY | 2025-04-08 18:12 | XMS_ITS | Encounter Summary ---
Author Organization [employer] Address [address] [facility] [address]t [place] [address] Care Team Providers Care Slot Tag Inserter Name Role Phone Anna Tineo MD Primary Care Provider [phone] Encounter Details Date Type Department Care Team ([facility] st Contact Info) Description 01/01/2025 Orders Only [facility] CHC MED & PEDS [address] [place] [address] ProviderArnulfo MD Social History Tobacco Use Types [...] housing situation today? I have luisaronnie martinez 11/16/[address] you li [...] the past 12 months, has t he [employer], [employer], oil or water [employer] threatened to shut off services in your [...] Description 05/23/2025 2:30 PM EST Office Visit [facility] CHC MED & PEDS [address] [place] [address] Anna Tineo MD [address] [place] [address] documented as of this encounter Procedures Procedure Name Priority Date/Time Associated Diagnosis Comments HM MAMMOGRAPHY Routine 12/31/2024 10:52 AM EDT documented in this encounter Results * Hm Mammography (12/31/2024 10:52 AM EDT) Anatomical Region Laterality Modality Other us Historical Provider HEALTH MAINTENANCE Final Result documented in this encounter Visit Diagnoses Not on filedocumented in this encounter Additional Health Concerns Assessment Noted Time PHQ-9 Depression Total Score: 4 03/14/20 24 11:37 AM EDT documented as of this encounter Care Teams Slot Tag Inserter Relationship Specialty Start Date End Date Anna Tineo MD [address] [place] [address] PCP - General Family Medicine 05/19/21 documented as of this encounter
--- OUTSIDE RECORDS SUMMARY | 2025-04-08 18:12 | XMS_ITS | Encounter Summary ---
Author Organization [employer] Address [address] [facility] 7t [place] [address] Care Team Providers Care Crm Solution Architect Name Role Phone Anna Tineo MD Primary Care Provider [phone] Encounter Details Date Type Department Care Team ([facility] st Contact Info) Description 11/01/2024 Orders Only [facility] CHC MED & PEDS [address] [place], [place] [phone] Tea Curry MD [address] [place] [address] Acute non-recurrent maxillary sinusitis (Primary Dx) Social [...] Description 05/23/2025 2:30 PM EST Office Visit [facility] MED & PEDS [address] [place] [address] Anna Tineo MD [address] [place] [address] documented as of this encounter Visit Diagnoses Diagnosis Acute non-recurrent maxillary sinusitis- Primary documented in this encounter Additional Health Concerns Assessment Noted Time PHQ-9 Depression Total Score: 4 03/14/20 24 11:37 AM EDT documented as of this encounter Care Teams Crm Solution Architect Relationship Specialty Start Date End Date Anna Tineo MD [address] [place] [address] PCP - General Family Medicine 05/19/21 documented as of this encounter
--- OUTSIDE RECORDS SUMMARY | 2025-04-08 18:12 | XMS_ITS | Encounter Summary ---
Author Organization [employer] Address [address] [facility] [address]t [place] [address] Care Team Providers Care Senior Storage Engineer Name Role Phone Anna Tineo MD Primary Care Provider [phone] Encounter Details Date Type Department Care Team (Latest Contact Info) Description 04/08/2025 Travel Social History Tobacco Use Types Packs/Day [...] housing situation today? I have luisa martinez 11/16/[address] you [...] Description 05/23/2025 2:30 PM EST Office Visit [facility] MED & PEDS [address] [place] [address] Anna Tineo MD [address] [place] [address] documented as of this encounter Visit Diagnoses Not on filedocumented in this encounter Additional Health Concerns Assessment Noted Time PHQ-9 Depression Total Score: 4 03/14/20 24 11:37 AM EDT documented as of this encounter Care Teams Senior Storage Engineer Relationship Specialty Start Date End Date Anna Tineo MD [address] [place] [address] PCP - General Family Medicine 05/19/21 documented as of this encounter
--- OUTSIDE RECORDS SUMMARY | 2025-04-08 18:12 | XMS_ITS | Encounter Summary ---
Author Organization [email or web address] Address [address] [facility] 7 [place] [address] Care Team Providers Care Global Commodity Manager Name Role Phone Anna Tineo MD Primary Care Provider [phone] Reason for Visit * Reason Onset Date Comments Med Refill 12/28/2024 Encounter Details Date Type Department Care Team ([facility] st Contact Info) Description 12/28/2024 Refill [facility] CHC MED & PEDS [address] [place] [address] Anna Tineo MD [address] [place] [address] Social History Tobacco Use Types Packs/Day Years [...] Description 05/23/2025 2:30 PM EST Office Visit [facility] MED & PEDS [address] [place] [address] Anna Tineo MD [address] [place] [address] documented as of this encounter Visit Diagnoses Not on filedocumented in this encounter Additional Health Concerns Assessment Noted Time PHQ-9 Depression Total Score: 4 03/14/20 24 11:37 AM EDT documented as of this encounter Care Teams Global Commodity Manager Relationship Specialty Start Date End Date Anna Tineo MD [address] [place] [address] PCP - General Family Medicine 05/19/21 documented as of this encounter
--- OUTSIDE RECORDS SUMMARY | 2025-04-08 18:12 | XMS_ITS | Encounter Summary ---
Author Organization [employer] Address [address] [place] [address] 7 [place] [address] Care Team Providers Care Biodiesel Technology Manager Name Role Phone Anna Tineo MD Primary Care Provider [phone] Reason for Visit * Reason Comments Med Refill Encounter Details Date Type Department Care Team ([facility] st Contact Info) Description 06/07/2023 Refill [facility] CHC MED & PEDS [address] [place], [place] [phone] Chelle James MD [address] [place] [address] Social History Tobacco Use Types Packs/Day Years [...] Description 05/23/2025 2:30 PM EST Office Visit [facility] MED & PEDS [address] [place] [address] Anna Tineo MD [address] [place] [address] documented as of this encounter Visit Diagnoses Not on filedocumented in this encounter Care Teams Biodiesel Technology Manager Relationship Specialty Start Date End Date Anna Tineo MD [address] [place] [address] PCP - General Family Medicine 05/19/21 documented as of this encounter
--- OUTSIDE RECORDS SUMMARY | 2025-04-08 18:12 | XMS_ITS | Encounter Summary ---
Author Organization [employer] Address [address] [facility] 7 [place] [address] Care Team Providers Care Warrant Clerk Name Role Phone Anna Tineo MD Primary Care Provider [phone] Reason for Visit * Reason Onset Date Comments Order(s) 01/01/2025 Encounter Details Date Type Department Care Team ([facility] st Contact Info) Description 01/01/2025 Telephone [facility] MEDICINE [address] [place] [address] Anna Tineo MD [address] [place] [address] Order(s) Social History Tobacco Use Types Packs/Day Years [...] encounter Miscellaneous Notes * Telephone Encounter - Noa Rodarte RN - 01/01/2025 4:27 PM EDT TC to [facility] cardiology. Spoke with office staff. Stated that pt insurance will not cover ICD 10 code diagnosis that is not related to cardiac arrhythmia, question of arrhythmia, or symptoms of cardiac arrhythmia present. Office stated insurance will not cover a 48 hr holter monitor with a diagnosis of diastolic dysfunction. Author advised will reach out to provider for clarification of specific diagnosis. * Telephone Encounter - Carlos Raymond - 01/01/2025 9:41 AM EDT Tc from Elsa with [facility] Cardiology calling in regards to 48 hour holter monitor order stating the dx does not meet medical necessity and they would need a new dx to complete the order. If any questions please contact Elsa at [phone]. documented in this encounter Plan of Treatment Upcoming Encounters Date Type Department Care Team (Late st Contact Info) Description 05/23/2025 2:30 PM EST Office Visit [facility] MED & PEDS [address] [place] [address] Anna Tineo MD [address] [place] [address] documented as of this encounter Visit Diagnoses Not on filedocumented in this encounter Additional Health Concerns Assessment Noted Time PHQ-9 Depression Total Score: 4 03/14/20 24 11:37 AM EDT documented as of this encounter Care Teams Warrant Clerk Relationship Specialty Start Date End Date Anna Tineo MD [address] [place] [address] PCP - General Family Medicine 05/19/21 documented as of this encounter
--- OUTSIDE RECORDS SUMMARY | 2025-04-08 18:12 | XMS_ITS | Encounter Summary ---
Author Organization [employer] Address [address] [facility] 7t [place] [address] Care Team Providers Care Panel Machine Setter Name Role Phone Anna Tineo MD Primary Care Provider [phone] Encounter Details Date Type Department Care Team (Late st Contact Info) Description 11/02/2024 Orders Only [facility] [address] [place], [place] [phone] ProviderArnulfo MD Social History Tobacco Use Types [...] the past 12 months, has t he [employer], gas, oil or water [employer] threatened to shut off services in your [...] Description 05/23/2025 2:30 PM EST Office Visit [facility] CHC MED & PEDS [address] [place] [address] Anna Tineo MD 505 [place] [address] documented as of this encounter Procedures Procedure Name Priority Date/Time Associated Diagnosis Comments ECG 12-LEAD Routine 11/01/2024 10:[address] ABDOMEN PELVIS W CONTRAST Routine 11/01/2024 10:[address] CHEST ANGIO W AND WO IV CONTRAST Routine 11/01/2024 10:16 AM EDT documented in this encounter Results * ECG 12 lead (11/01/2024 10:47 AM EDT) Historical Provider ECG ORDERABLES Final Res ult * CT Abdomen Pelvis w/ Contrast (11/01/2024 10:19 AM EDT) Anatomical Region Laterality Modality Body, Pelvis, Abdomen Computed T omography Historical Provider IMG CT PROCEDURES Final R esult * CT CHEST ANGIO W AND WO IV CONTRAST (11/01/2024 10:16 AM EDT) Anatomical Region Laterality Modality Computed Tomogra phy Historical Provider IMG CT PROCEDURES Final R esult documented in this encounter Visit Diagnoses Not on filedocumented in this encounter Additional Health Concerns Assessment Noted Time PHQ-9 Depression Total Score: 4 03/14/20 24 11:37 AM EDT documented as of this encounter Care Teams Panel Machine Setter Relationship Specialty Start Date End Date Anna Tineo MD [address] [place] [address] PCP - General Family Medicine 05/19/21 documented as of this encounter
--- OUTSIDE RECORDS SUMMARY | 2025-04-08 18:12 | XMS_ITS | Clinical Summary ---
Author Organization [employer] Address [address] [facility] 7t [place] [address] Care Team Providers Care Front Desk Administrator Name Role Phone Anna Tineo MD Primary Care Provider [phone] Allergies Active Allergy Reactions Criticality Noted Date Comments Bee Venom Anaphylaxis High 07/08/2017 Sulfa Antibiotics Rash Low 10/01/2021 Medications cholecalciferol (Vitamin D-3) 50 MCG (2000 UT) [...] Once per day. 16 g 1 4 Active pantoprazole (ProtoNix) 40 MG EC tablet Take 1 Tab by mouth daily for 180 days. 0 Active albuterol (2.5 MG/3ML) 0.083% nebulizer solutionIndicat ions:Reactive airway disease with wheezing without complication, unspecified asthma severity, unspecified whether persistent Take 3 mL (2.5 mg) by nebulization every 4 (four) hours if needed for wheezing. 75 mL 11 5 11/27/19 26 Active fluticasone furoate (Arnuity Ellipta) 100 MCG/ACT inhaler Inhale 1 puff Once per day. Rinse mouth with water after use to reduce aftertaste and incidence of candidiasis. Do not swallow. 1 each 11 5 11/27/19 26 Active citalopram (CeleXA) 40 MG tablet TAKE 1 TABLET BY MOUTH EVERY DAY 90 tablet 1 5 Active bisoprolol-hydr oCHLOROthiazide (Ziac) 5-6.25 MG tablet TAKE 1 TABLET BY MOUTH EVERY DAY 90 tablet 1 5 Active Tirzepatide-Alban ght Management (Zepbound) 5 MG/0.5ML solution auto-injector Inject 0.5 mL (5 mg) under the skin 1 (one) time per week. INJECT 5 MG UNDER THE SKIN 1 (ONE) TIME PER WEEK. DO NOT START BEFORE FEBRUARY 06, 2025. 2 mL 1 5 Active albuterol 108 (90 Base) MCG/ACT inhaler Inhale 2 puffs every 4 (four) hours if needed for wheezing. 18 g 1 5 Active atorvastatin (Lipitor) 20 MG tablet TAKE 1 TABLET BY MOUTH EVERY DAY IN THE MORNING 90 tablet 1 5 Active lidocaine (LMX) 4 % cream Apply topically if needed in the morning, at noon, in the evening, and at bedtime for moderate pain. 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 PFTs show minimal decline in diffusion, no significant lung base changes. No clear signs of asthma, but patient experiences symptom relief with inhaler treatments. CT chest was unremarkable. Echocardiogram revealed mild left ventricular hypertrophy. DVT screening were negative. Patient reports chest tightness between breasts. Differential diagnoses include reactive airway disease, post- COVID syndrome, and possible cardiac involvement. Plan: - Prescribe fluticasone (steroid inhaler) once daily - Administer nebulizer treatment in office - Refer to electrical logging engineer for further evaluation - Consider cardiology referral after pulmonology assessment - Order Holter monitor (already requested by Dr. Curry) - Diagnose as reactive airway disease for treatment purposes - Follow up in 1 month to reassess symptoms and treatment efficacy Reactive airway disease with wheezing without co mplication 11/26/2024 Diastolic dysfunction 07/04/2024 COVID-19 05/14/2024 Assessment & [...] 07/08/2017 Diverticulosis 07/08/2017 Obesity (BMI 30-39.9) 07/04/2017 Assessment & Plan (11/26/2024 9:51 AM EDT): Reviewed indications for pharmacotherapy with patient, which is treatment for patient w/ obesity or a patient with a BMI > 27 w/ CV risk factors who have failed lifestyle modifications alone. These are always prescribed in combination with ongoing lifestyle modification; and will be titrated up from the lowest dose. Will start patient on Zepbound, given know efficacy. Reviewed mechanism of action with patient. Discussed side effects with patient: nausea, vomiting, diarrhea & risk of pancreatitis. No contraindications identified: , hx of pancreatitis, hx of medullary thyroid cancer or MEN 2. Discussed calorie deficit, recommended reduction of 20-30% of maintenance calories; tallow pumper referral offered. Recommended to decrease soda and sugary beverage consumption. Recommended at least 20 g per meal of protein to assist with satiety. Recommended at least 150 min/week of moderate intensity exercise. Patient has anxiety, contraindicating the use of phentermine. Plan: - Prescribe Zepbound (tirzepatide) for weight loss, pending insurance approval - Start with 2.5 mg weekly subcutaneous injection - If approved and tolerated, increase to 5 mg after 1 month - Provide injection administration instructions - Submit prior authorization request to insurance - If approved, follow up in 1 month to assess for side effects - If no side effects, increase dose to 5 mg and follow up every 3 months for weight documentation GERD (gastroesophageal reflux disease) 8 Encounters Date Type Department Care Team Description 04/08/2025 2:00 PM EDT Office Visit [facility] CH[facility] MED & PEDS [address] [facility] [address] Chelle James MD Pain and swelling of knee, right (Primary Dx); Primary hypertension 04/08/2025 Travel 02/26/2025 Refill [facility] MED & PEDS [address] [facility] [place] [address] [place] MD 01/28/2025 Orders Only [facility] MED & PEDS [address] [place] [address] Arnulfo Ramirez MD 01/24/2025 Orders Only [facility] MED & PEDS [address] [place], [place] [phone] Arnulfo Ramirez MD 01/21/2025 Orders Only [facility] [address] [place] [address] Arnulfo Ramirez MD 01/17/[address] [facility] MEDICINE [address] [place], [place] [phone] Anna Tineo MD Order(s) from Last 3 Months Immunizations Immunization Administration Dates Next Due TD (adult), 2 Lf tetanus tox oid, preservative free, adsorbed 05/30/2016 Tdap 11/26/2024 Zoster, Recombinant 06/29/2018 Family History Medical History [...] 20 04/08/2025 1:51 PM EDT Oxygen Saturation 97% 11/26/2024 9:04 AM EDT Inhaled Oxygen Concentration - - Weight 85.7 kg (189 lb) 04/08/2025 1:51 PM EDT Height 157.5 cm (5' 2 ) 11/26/2024 9:04 AM EDT Body Mass Index 34.57 11/26/2024 9:04 AM EDT Plan of Treatment Upcoming Encounters Date Type Department Care Team (Late st Contact Info) Description 05/23/2025 2:30 PM EST Office Visit [facility] CH[facility] MED & PEDS [address] [place] [address] nAna Tineo MD [address] [place] [address] Health Maintenance Due Date Last Done Comments CT Colonography 1959 Colonoscopy 1959 Colorectal Cancer Screening 1959 FIT DNA/Cologuard 1959 FIT 1959 FOBT 1959 Sigmoidoscopy 1959 Pneumococcal Vaccine: 50+ Years (1 of 2 - PCV) 10/06/1978 RSV Patients and Patients Aged 60 years or older (1 - Risk 60-74 years 1-dose series) 2019 COVID-19 Vaccine ( season) 2025 09/27/2020, 09/06/2020 Influenza Vaccine (#1) 2025 Depression Screening 03/14/2025 03/14/2024, 03/14/20 Alcohol/Substance Use Screening 04/17/2025 04/17/2024 SDOH Screening 11/16/2025 11/16/2024 Zoster Vaccines (2 of 2) 11/26/2025 06/29/2018 Pos tponed from 08/24/2018 (Patient Refused) Mammogram 01/21/2026 01/21/2025, 08/0 09/2024, 01/15/2025, Additional history exists Tobacco Screening 04/08/2026 04/08/2025 Cervical Cancer Screening 04/17/2029 HPV/Cotest 04/17/2029 04/17/2024 Pap Smear 04/17/2029 04/17/2024 Lipid Panel 11/26/2029 11/26/2024, 0211/2023, 04/13/2023, Additional history exists DTaP/Tdap/Td Vaccines (2 - Td or Tdap) 11/26/2034 11/26/2024, 05/30/2016 Hepatitis C Screening Completed 11/26/2024 HIB Vaccines Aged Out No longer eligi [...] Procedure Name Priority Date/Time Associated Diagnosis Comments AMB REFERRAL TO HEMATOLOGY / ONCOLOGY Routine 02/27/2025 Hyperbilirubinemia Elevated LDH MAMMO STEREO BIOPSY LEFT Routine 01/21/2025 3:26 PM EDT BIOPSY Routine 01/21/2025 1:36 PM EDT SURGICAL PATHOLOGY Routine 01/21/2025 10 :55 AM EDT BI MR GUIDED BREAST BIOPSY LEFT Urgent 01/21/2025 Abnormal mammogram of left breast BI US BREAST COMPLETE LEFT Routine 01/15/2025 Abnormal mammogram of left breast BI MAMMOGRAM DIAGNOSTIC TOMOSYNTHESIS LEFT Routine 01/15/2025 Abnormal mammogram of left breast HEPATITIS C AB W/REFL TO HCV RNA, QN, PCR Routine 11/26/2024 10:12 AM EDT Obesity (BMI 30-39.9) LIPID PANEL, STANDARD Routine 11/26/2024 10:12 AM EDT Obesity (BMI 30-39.9) THINPREP IMAGING PAP AND HPV MRNA E6/E7 Routine 04/17/2024 9:50 AM EDT from Last 3 Months or Most Recently Relevant to Health Maintenance Results * Referral to Hematology / Oncology (02/27/2025) Result [facility] us Anna Tineo MD OUTPATIENT REFERRAL ORDERABLE S Final Result * MAMMO STEREO BIOPSY LEFT (01/21/2025 3:26 PM EDT) Anatomical Region Laterality Modality Mammography Historical James [facility]ANN IMG BI PROCEDURES Final R esult * Biopsy (01/21/2025 1:36 PM EDT) Historical [facility] IN CLINIC/BEDSIDE ORDERAB LES Final Result * Surgical Pathology (01/21/2025 10:55 AM EDT) Historical James VANN LAB PATHOLOGY ORDERABLES Final Result * BI MR Guided Breast Biopsy Left (01/21/2025) Anatomical Region Laterality Modality Breast Left Magnetic Resonan ce us Anna Tineo MD IMG MRI PROCEDURES Final Resu lt * BI Mammogram Diagnostic Tomosynthesis Left (01/15/2025) Anatomical Region Laterality Modality Breast Left Mammography Anna Tineo MD IMG BI PROCEDURES Final Resul t * BI US Breast Complete Left (01/15/2025) Anatomical Region Laterality Modality Breast Left Ultrasound Anna Tineo MD IMG US PROCEDURES Final Resul t * Hepatitis C Antibody with Reflex to HCV, RNA, Quantitative, Real-Time PCR (11/26/2024 10:12 AM EDT) Hepatitis C Antibody Nonreactive Nonreactive [facility] Comment:Antibodies to HCV no t detected; does not exclude early acuteHCV infection. Blood Venous blood specimen / Unknown 11/26/2024 10:12 AM EDT 11/26/2024 2:17 PM EDT Result [facility] Anna Tineo MD LAB BLOOD ORDERABLES Final Re sult [facility] [address] [place] [phone] * Lipid Panel, Standard (11/26/2024 10:12 AM EDT) Triglycerides 96 <150 mg/dL [facility] Comment:Desirable Triglyceri de: less than 150 mg/dLBorderline High Triglyceride 150-199 mg/dLHigh Triglyceride: 200-499 mg/dLVery High Triglyceride: greater than or equal to 5OO mg/dL Cholesterol 151 <200 mg/dL [facility] Comment:Desirable Cholestero l: less than 200 mg/dLBorderline High Cholesterol: 200-239 mg/dLHigh Cholesterol: greater than 239 mg/dL LDL Cholesterol Calculated 76 <100 mg/dL [facility] Comment:Desirable LDL: less than 100 mg/dLNear Optimal/Above Optimal LDL: 110- 129 mg/dLBorderline High LDL: 130-159 mg/dLHigh LDL: 160-189 mg/dLVery High LDL: greater than or equal to 190 mg/dL HDL Cholesterol 56 >40 mg/dL [facility] Comment:Desirable HDL: great er than 40 mg/dL Note: This HDL assay may give artificially low results in patients with liver disease. Blood Venous blood specimen / Unknown 11/26/2024 10:12 AM EDT 11/26/2024 2:17 PM EDT us Anna Tineo MD LAB BLOOD ORDERABLES Final Re sult [facility] [address] [place] [address] [phone] * ThinPrep Imaging Pap and HPV mRNA E6/E7 (04/17/2024 9:50 AM EDT) HPV nRNA E6/E7 Not Detected Not Detected [facility] Comment:Methodology: Transcr iption-Mediated AmplificationThis assay detects E6/E7 viral messenger RNA (mRNA) from 14high-risk HPV types (16,18,31,33,35,39,45,51,52,56,58,59,66,68).Cervical sources are required for HPV testing.If a vaginal source from a patient who has had atotal hysterectomy with removal of cervix wassubmitted, please contact the testing laboratoryfor alternative testing options.For additional information, please refer [email or web address]/[email or web address](This link if provided for information/educational purposes only.)THIS TEST WAS PERFORMED AT:[facility] [place] [phone] HAYS MD SOURCE: SEE NOTE [facility] Comment:Cervix Report Status: [facility] Clinical Information: SEE NOTE [facility] Comment:None given LMP: SEE NOTE [facility] Comment:NONE GIVEN Prev. PAP: SEE NOTE [facility] Comment:NONE GIVEN Prev. BX: SEE NOTE [facility] Comment:NONE GIVEN Statement Of Adequacy: SEE NOTE [facility] Comment:[employer] General Categorization: [facility] Interpretation/Result: SEE NOTE [facility] Comment:Cytology Results: Ne gative for intraepitheliallesion or malignancy.Atrophic pattern; predominantly parabasal cells Cytology Comment SEE NOTE [facility] Comment:This Pap test has be en evaluated with computerassisted technology. Wheelage Clerk: SEE NOTE [facility] Comment:MRC, CT(ASCP) CT scr eening location: [place] [address] Review Wheelage Clerk: [facility] Pathologist [facility] PAP Infection [facility] See Note SEE NOTE [facility] Comment:EXPLANATORY NOTE:The Pap is a screening test for cervical cancer. It isnot a diagnostic test and is subject to false negativeand false positive results. It is most reliable when asatisfactory sample, regularly obtained, is submittedwith relevant clinical findings and history, and whenthe Pap result is evaluated along with historic andcurrent clinical information. 04/17/2024 9:50 AM EDT 04/17/2024 3:06 PM EDT Narrative [facility] - 04/23/2024 12:27 PM EST SEE SCANNED RESULTS IN EMRCERVIX us Anna Tineo MD LAB PATHOLOGY ORDERABLES Nidhi mora Result [facility] [address] [place] [phone] [phone] from Last 3 Months or Most Recently Relevant to Health Maintenance Insurance [facility] MEDICARE REPLACEMENT PPO [facility] STANDARD Care Teams Front Desk Administrator Relationship Specialty Start Date End Date Anna Tinoe MD [address] [place] [phone] PCP - General Family Medicine 05/19/21
--- OUTSIDE RECORDS SUMMARY | 2025-04-08 18:12 | XMS_ITS | Encounter Summary ---
Author Organization [employer] Address [address] [facility] 7t [place] [address] Care Team Providers Care Salmon Troll Fisher Name Role Phone Anna Tineo MD Primary Care Provider [phone] Reason for Visit * Reason Comments Med Change Request Encounter Details Date Type Department Care Team ([facility] st Contact Info) Description 11/26/2024 Refill [facility] MED & PEDS [address] [place], [place] [phone] Anna Tineo MD [address] [place] [address] Social History Tobacco Use Types Packs/Day Years [...] encounter Miscellaneous Notes * Telephone Encounter - Anna Tineo MD - 12/17/2024 2:58 PM EDT Already incr dose to maintenace elsewhere documented in this encounter Plan of Treatment Upcoming Encounters Date Type Department Care Team (Late st Contact Info) Description 05/23/2025 2:30 PM EST Office Visit [facility] MED & PEDS [address] [place] [address] Anna Tineo MD [address] [place] [address] documented as of this encounter Visit Diagnoses Not on filedocumented in this encounter Additional Health Concerns Assessment Noted Time PHQ-9 Depression Total Score: 4 03/14/20 24 11:37 AM EDT documented as of this encounter Care Teams Salmon Troll Fisher Relationship Specialty Start Date End Date Anna Tineo MD [address] [place] [address] PCP - General Family Medicine 05/19/21 documented as of this encounter
--- OUTSIDE RECORDS SUMMARY | 2025-04-08 18:13 | XMS_ITS | Encounter Summary ---
Author Organization [employer] Address [address] [facility] 7t [place] [address] Care Team Providers Care Director Of Academic Support Name Role Phone Anna Tineo MD Primary Care Provider [phone] Encounter Details Date Type Department Care Team (Late st Contact Info) Description 01/21/2025 Orders Only [facility] [address] [place], [place] [phone] ProviderArnulfo MD Social History Tobacco Use Types [...] the past 12 months, has t he [employer], [employer], oil or water [employer] threatened to shut off services in your [...] 05/23/2025 2:30 PM EST Office Visit [facility] MED & PEDS [address] [place] [address] Anna Tineo MD [address] [place] [address] documented as of this encounter Procedures Procedure Name Priority Date/Time Associated Diagnosis Comments MAMMO STEREO BIOPSY LEFT Routine 01/21/2025 3:26 PM EDT documented in this encounter Results * MAMMO STEREO BIOPSY LEFT (01/21/2025 3:26 PM EDT) Anatomical Region Laterality Modality Mammography us Historical Provider MD CALVILLO BI PROCEDURES Final R esult documented in this encounter Visit Diagnoses Not on filedocumented in this encounter Additional Health Concerns Assessment Noted Time PHQ-9 Depression Total Score: 4 03/14/20 24 11:37 AM EDT documented as of this encounter Care Teams Director Of Academic Support Relationship Specialty Start Date End Date Anna Tineo MD [address] [place] [phone] PCP - General Family Medicine 05/19/21 documented as of this encounter
--- OUTSIDE RECORDS SUMMARY | 2025-04-08 18:13 | XMS_ITS | Encounter Summary ---
Author Organization [employer] Address [address] [facility] 7t [place] [address] Care Team Providers Care President/[employer] Name Role Phone Anna Tineo MD Primary Care Provider [phone] Encounter Details Date Type Department Care Team ([facility] st Contact Info) Description 01/28/2025 Orders Only [facility] CHC MED & PEDS [address] [place] [address] ProviderArnulfo MD Social History Tobacco Use Types [...] the past 12 months, has t he [employer], [employer], oil or water [employer] threatened to shut off services in your [...] Description 05/23/2025 2:30 PM EST Office Visit [facility] MED & PEDS [address] [place] [address] Anna Tineo MD [address] [place] [address] documented as of this encounter Procedures Procedure Name Priority Date/Time Associated Diagnosis Comments SURGICAL PATHOLOGY Routine 01/21/2025 10:55 AM EDT documented in this encounter Results * Surgical Pathology (01/21/2025 10:55 AM EDT) Historical Provider LAB PATHOLOGY ORDERABLES Final Result documented in this encounter Visit Diagnoses Not on filedocumented in this encounter Additional Health Concerns Assessment Noted Time PHQ-9 Depression Total Score: 4 03/14/20 24 11:37 AM EDT documented as of this encounter Care Teams President/[employer] Relationship Specialty Start Date End Date Anna Tineo MD [address] [place] [address] PCP - General Family Medicine 05/19/21 documented as of this encounter
--- OUTSIDE RECORDS SUMMARY | 2025-04-08 18:13 | XMS_ITS | Encounter Summary ---
Author Organization [employer] Address [address] [place] [address] Care Team Providers Care Fur Blowing Machine Attendant Name Role Phone Anna Tineo MD Primary Care Provider [phone] Encounter Details Date Type Department Care Team ([facility] st Contact Info) Description 01/24/2025 Orders Only [facility] [address] [place] [address] ProviderArnulfo MD Social History Tobacco Use Types [...] the past 12 months, has t he [employer] threatened to shut off services in your [...] Description 05/23/2025 2:30 PM EST Office Visit [facility] [address] [place] [address] Anna Tineo MD [address] [place] [address] documented as of this encounter Procedures Procedure Name Priority Date/Time Associated Diagnosis Comments BIOPSY Routine 01/21/2025 1:36 PM EDT documented in this encounter Results * Biopsy (01/21/2025 1:36 PM EDT) Historical Provider IN CLINIC/BEDSIDE ORDERAB LES Final Result documented in this encounter Visit Diagnoses Not on filedocumented in this encounter Additional Health Concerns Assessment Noted Time PHQ-9 Depression Total Score: 4 03/14/20 24 11:37 AM EDT documented as of this encounter Care Teams Fur Blowing Machine Attendant Relationship Specialty Start Date End Date Anna Tineo MD [address] [place] [address] PCP - General Family Medicine 05/19/21 documented as of this encounter
[2025-04-08 18:23] LABS: MANUAL DIFF FLAG NO
[2025-04-08 18:38] LABS: Hematocrit 35.1 % (37.0-47.0); Hemoglobin 11.7 g/dl (12.0-16.0); Imm Gran Abs Auto 0.03 X10*3/uL (0.00-0.03); Imm Gran Pct Auto 0.4 % (0.0-0.4); Lymphocytes Absolute Auto 2.3 X10*3/uL (1.2-4.9); Mean Corpuscular HGB Conc 33.3 g/dl (31.0-35.0); Mean Corpuscular Hemoglobin 28.2 pg (27.0-33.0); Mean Corpuscular Volume 84.6 fL (80.0-98.0); NRBC Abs Auto 0.000 X10*3/uL (0.0-0.012); NRBC Pct Auto 0.0 /100WBC (0.0-0.2); Platelet Count 328 X10*3/uL (160-400); Red Blood Count 4.15 X10*6/uL (4.20-5.50); White Blood Count 8.4 X10*3/uL (4.8-10.8)
[2025-04-08 18:57] LABS: Uric Acid 5.7 mg/dL (2.4-5.7)
[2025-04-09 18:44] LABS: Lyme Abs Screen <0.90 index
== END 2025-04-08 14:27 | disposition home or self-care (01) ==
LOC: HO.CHCLDS 14:26
PROVIDERS: Visit Provider Pediatrics
DX: Z01.84 Encounter for antibody response examination (principal); M25.461 Effusion, right knee; M25.561 Pain in right knee
CPT/HCPCS: 36415; 84550; 85025; 85652; 86617; 86618